=== PATIENT | female | born 1935 | race Caucasian/White ===

== ENCOUNTER → 2018-05-25 09:30 | Outpatient (CLI) | payer MEDICARE, OTHER, SELFPAY ==
--- NOTE | 2018-05-25 09:41 | US_ITS ---
STUDY: ABDOMINAL ULTRASOUND - RIGHT UPPER QUADRANT REASON FOR VISIT: Female, 82 years old. Abdominal pain. Discomfort. TECHNIQUE: Ultrasound evaluation of the right upper quadrant was performed with real-time and static lopez-scale imaging. TECHNICAL QUALITY: Adequate. COMPARISON: None. FINDINGS: Liver: The liver measures 14.2 cm. There is normal echogenicity of the liver. The bile ducts are within normal limits. There is hepatic color flow. The direction of portal flow is hepatopetal. There is no demonstrated mass lesion. Gallbladder: Normal distended gallbladder. The gallbladder wall measures 2. mm. There is a negative sonographic Gonsalez's sign. There is no pericholecystic fluid. There are no gallstones. Common Bile Duct (C.B.D.): The common bile duct measures 5.5 mm. Pancreas: Normal size of the head, body and tail of the pancreas. There is normal echogenicity of the pancreas. There is no demonstrated pancreatic mass or cyst. Right Kidney: Normal size of the right kidney. The right kidney measures 9.2 cm. Normal renal cortex. The right cortex measures 1.2 cm. There is no demonstrated renal mass or cyst. There is an extra-renal pelvis of the right kidney. There is no distention of the renal calyces. US/Gallbladder IMPRESSION: Normal right upper quadrant ultrasound examination. Electronically Signed: Kane Espino DO at 18:28 EDT Tel [phone], Service support ,
[2018-05-25 09:47] LABS: Hematocrit 39.9 % (37-47); Hemoglobin 13.6 g/dl (12.0-15.0); Mean Corp Hgb Conc 34.1 g/gl (32-36); Mean Corpuscular Hgb 32.2 pg (27.0-32.0); Mean Corpuscular Volume 94.3 fL (81-99); Mean Platelet Vol. 8.6 fl (6.2-12.0); Platelet Count 221 K/mm3 (150-450); RBC Distribution Width CV 13.1 % (11.6-14.6); Red Blood Count 4.23 M/mm3 (4.2-5.4); White Blood Count 6.4 K/mm3 (4.4-11.0)
[2018-05-25 09:48] LABS: Scan Indicated on CBC? Y/N NO
[2018-05-25 10:24] LABS: ALB/GLOB Ratio 1.2 RATIO (0.9-2.4); AST(SGOT) 16 U/L (15-37); Alanine Aminotransfer ALT/SGPT 19 U/L (13-56); Albumin, Serum 3.7 g/dL (3.2-5.0); Alkaline Phosphatase 44 U/L (45-117); Anion Gap 6 (5-15); BUN 11 mg/dL (7-18); BUN/Creat Ratio 15.9 RATIO (10-20); Calcium,Total 8.1 mg/dL (8.5-10.1); Chloride 108 mmol/L (98-107); Creatinine, Serum 0.69 mg/dL (0.55-1.02); EST Glomerular Filtration Rate 86 mL/min (>60); Est Glom Filt Rate - Afr Amer 105 mL/min (>60); Globulin 3.1 g/dL (2.2-4.2); Glucose 112 mg/dL (74-106); Potassium 3.8 mmol/L (3.5-5.1); Protein, Total 6.8 g/dL (6.4-8.2); Sodium Level 141 mmol/L (136-145)
[2018-05-26 13:44] LABS: Carcinoembryonic Antigen 5.1 ng/mL (0.0-4.7)
== END ==
PROVIDERS: Referring Provider Surgery; Visit Provider Surgery
DX: R10.11 Right upper quadrant pain (principal); Z85.038 Personal history of other malignant neoplasm of large intestine
CPT/HCPCS: 36415; 76705; 80053; 82378; 85027

== ENCOUNTER 2018-06-17 09:43 | Day surgery (SDC) | payer MEDICARE, OTHER, SELFPAY ==
[2018-06-17] VITALS (10 sets, daily range): BP systolic 86–164; BP diastolic 45–94; PULSE 65–81; RESP 16; TEMP 36–36.6; O2SAT 93–100; BMI 22.8
--- NOTE | 2018-06-17 | EGD_PTH ---
PATIENT: ROSCOE COHEN LOC: EN U#:[id number] AGE/SX: 82/F ROOM: RE06/17/[address]: Dr. Yadiel Engel MD : 1935 BED: DIS: 06/17/2018 SPEC #: [id number] RECD: 06/17/18 14:32 STATUS: ANTONIETTA ORIN #: [id number] CASSANDRA: 06/17/18 00:[address]: Yadiel Engel DEPT: SURGICAL PATHOLOGY RECD BY: Juan Edmond ENTERED: 06/17/18 14:33 SP TYPE: EGD BIOPSY OT DR: Dr. Zuly Merritt MD Tissues: A - Duodenum, NOS B - Gastric mucous membrane C - Esophageal mucous membrane Procedures: Surgery Specimen Level IV HEADER OPERATION: Colonoscopy, EGD (MOD) PRE-OP DIAGNOSIS: Epigastric pain, history of colon cancer TISSUE SUBMITTED: A - Biopsy duodenum, B - Biopsy gastric antrum, H. pylori and path, C - Biopsy distal esophagus MICROSCOPIC DIAGNOSIS A. Duodenum, biopsy: Fragments of duodenal mucosa with mild acute and chronic inflammation and Parminder gland hyperplasia. B. Gastric antrum, biopsy: Mild gastritis. C. Distal esophagus, biopsy: Fragments of squamous mucosa with changes consistent with gastroesophageal reflux disease. SJ:rg 06/20/18 COMMENT B. The results of immunohistochemistry for Helicobacter pylori will be reported separately ([id number]). Correlation with clinical, endoscopic findings and appropriate follow up are necessary. MICROSCOPIC DESCRIPTION Slides are reviewed. B. The specimen shows fragments of gastric mucosa with chronic inflammatory cell infiltrates in the lamina propria consisting of lymphocytes and plasma cells, consistent with mild chronic gastritis. GROSS DESCRIPTION A - Received in fixative is one container labeled with the patient's name and designated biopsy duodenum. The specimen consists of two irregular fragments of light carranza soft tissue that in aggregate measure 0.8 x 0.3 x 0.1 cm. The specimen is totally submitted in one cassette. B - Received in fixative is one container labeled with the patient's name and designated biopsy gastric antrum. The specimen consists of one irregular fragment of light carranza soft tissue that measures 0.4 x 0.2 x 0.1 cm. The specimen is totally submitted in one cassette. C - Received in fixative is one container labeled with the patient's name and designated biopsy distal esophagus. The specimen consists of multiple irregular fragments of light carranza soft tissue that in aggregate measure 1 x 0.5 x 0.1 cm. The specimen is totally submitted in one cassette. / SJ:rg 06/17/18 TC:2 CPT: 48949 x3
--- NOTE | 2018-06-17 10:55 | IMM_PTH ---
PATIENT: ROSCOE COHEN LOC: EN U#:[id number] AGE/SX: 82/F ROOM: RE06/17/[address]: Dr. Yadiel Engel MD : 1935 BED: DIS: 06/17/2018 SPEC #: [id number] RECD: 06/17/18 14:45 STATUS: ANTONIETTA REQ #: [id number] CASSANDRA: 06/17/18 10:[address]: Yadiel Engel DEPT: IMMUNOHISTOCHEMISTRY RECD BY: Lupe Zavala ENTERED: 06/17/18 14:45 SP TYPE: IMMUNO OTHR DR: Dr. Zuly Merritt MD Tissues: B - Stomach, NOS Procedures: H Pylori (initial) PHYSICIAN & INSTITUTION [place] [id number] SPECIMEN INFORMATION: Tissue Source: Gastric antrum Clinical Info: Epigastric pain, history of colon cancer Specimen Number: [id number] CPT code: 32104 METHODOLOGY: Deparaffinized sections of prefer/formalin-fixed tissue or PAP/DQ stained slides are incubated with monoclonal/polyclonal antibodies/oligonucleotide probes. Localization is made via biotin free immunoperoxidase method. Appropriate controls are performed and reacted as expected. Results on target cell population are indicated in the following table: RESULTS: ANTIBODY / CLONE RESULT H Pylori (polyclonal) negative These tests were developed and their performance characteristics determined by [facility]. They may not have been cleared or approved by the [place]. Food and Drug Administration. The FDA has determined that such clearance or approval is not necessary. INTERPRETATION: Gastric antrum, biopsy: Negative for Helicobacter pylori organisms. SJ:rustam 06/20/18
--- NOTE | 2018-06-17 11:39 | OP.ENDO_ITS ---
Patient Name: May Bobby Procedure Date: 06/17/2018 11:02 AM Date of : 1935 Age: 82 Procedure: Upper GI endoscopy Indications: Epigastric abdominal pain Providers: Yadiel Engel MD Referring MD: Yadiel Engel MD Medicines: Midazolam 4 mg IV, Meperidine 100 mg IV Complications: No immediate complications. Procedure: Pre-Anesthesia Assessment: - Prior to the procedure, a History and Physical was performed, and patient medications and allergies were reviewed. The patient's tolerance of previous anesthesia was also reviewed. The risks and benefits of the procedure and the sedation options and risks were discussed with the patient. All questions were answered, and informed consent was obtained. Prior Anticoagulants: The patient has taken no previous anticoagulant or antiplatelet agents. ASA Grade Assessment: II - A patient with mild systemic disease. After reviewing the risks and benefits, the patient was deemed in satisfactory condition to undergo the procedure. After obtaining informed consent, the endoscope was passed under direct vision. Throughout the procedure, the patient's blood pressure, pulse, and oxygen saturations were monitored continuously. The gastroscope was introduced through the mouth, and advanced to the second part of duodenum. The upper GI endoscopy was accomplished without difficulty. The patient tolerated the procedure well. Moderate Sedation: Moderate (conscious) sedation was personally administered by the endoscopist. The following parameters were monitored: oxygen saturation, heart rate, blood pressure, and response to care. Total physician intraservice time was 22 minutes. Scope In: 11:12:27 AM Scope Out: 11:18:13 AM Total Procedure Duration Time 0 hours 5 minutes 46 seconds Findings: LA Grade A (one or more mucosal breaks less than 5 mm, not extending between tops of 2 mucosal folds) esophagitis was found 40 cm from the incisors. Biopsies were taken with a cold forceps for histology. A medium-sized hiatal hernia was present. Diffuse mildly erythematous mucosa without bleeding was found in the gastric antrum. Biopsies were taken with a cold forceps for histology. Diffuse mildly erythematous mucosa without active bleeding and with no stigmata of bleeding was found in the duodenal bulb. Biopsies were taken with a cold forceps for histology. Impression: - LA Grade A reflux esophagitis. Biopsied. Possible small amount of Bauman's - Medium-sized hiatal hernia. - Erythematous mucosa in the antrum. Biopsied. - Erythematous duodenopathy. Biopsied. Findings show mild disease but would not likely cause severe epigatric pain Unless pt is improved on current medications Recommendation: - Discharge patient to home. - Resume previous diet. - Continue present medications. - Telephone my office for pathology results in 1 week. Procedure Code(s): --- Professional --- 68522, Esophagogastroduodenoscopy, flexible, transoral; with biopsy, single or multiple 95437, 59, Moderate sedation services provided by the same physician or other qualified health critical care clinical nurse specialist performing the diagnostic or therapeutic service that the sedation supports, requiring the presence of an independent trained observer to assist in the monitoring of the patient's level of consciousness and physiological status; initial 15 minutes of intraservice time, patient age 5 years or older Diagnosis Code(s): --- Professional --- K21.0, Gastro-esophageal reflux disease with esophagitis K44.9, Diaphragmatic hernia without obstruction or gangrene K31.89, Other diseases of stomach and duodenum R10.13, Epigastric pain CPT copyright 2017 [employer]. All rights reserved. The codes documented in this report are preliminary and upon industrial machine operator review may be revised to meet current compliance requirements. Yadiel Engel MD 06/17/2018 11:39:23 AM This report has been signed electronically. Number of Addenda: 0 Note Initiated On: 06/17/2018 11:02 AM
--- NOTE | 2018-06-17 11:46 | OP.ENDO_ITS ---
Patient Name: May Bobby Procedure Date: 06/17/2018 11:19 AM Date of : 1935 Age: 82 Procedure: Colonoscopy Indications: High risk colon cancer surveillance: Personal history of colon cancer Providers: Yadiel Engel MD Referring MD: Yadiel Engel MD Medicines: See the other procedure note for documentation of the administered medications Patient Profile: Last Colonoscopy: 5 years ago. Complications: No immediate complications. Procedure: Pre-Anesthesia Assessment: - Prior to the procedure, a History and Physical was performed, and patient medications and allergies were reviewed. The patient's tolerance of previous anesthesia was also reviewed. The risks and benefits of the procedure and the sedation options and risks were discussed with the patient. All questions were answered, and informed consent was obtained. Prior Anticoagulants: The patient has taken no previous anticoagulant or antiplatelet agents. ASA Grade Assessment: II - A patient with mild systemic disease. After reviewing the risks and benefits, the patient was deemed in satisfactory condition to undergo the procedure. After I obtained informed consent, the scope was passed under direct vision. Throughout the procedure, the patient's blood pressure, pulse, and oxygen saturations were monitored continuously. The Colonoscope was introduced through the anus and advanced to the cecum, identified by appendiceal orifice and ileocecal valve. The colonoscopy was performed without difficulty. The patient tolerated the procedure well. The quality of the bowel preparation was good. The ileocecal valve was photographed. Moderate Sedation: Moderate (conscious) sedation was personally administered by the endoscopist. The following parameters were monitored: oxygen saturation, heart rate, blood pressure, and response to care. Total physician intraservice time was 15 minutes. Scope In: 11:20:59 AM Scope Withdrawal Time 0 hours 6 minutes 34 seconds Scope Out: 11:32:40 AM Total Procedure Duration Time 0 hours 11 minutes 41 seconds Findings: The perianal and digital rectal examinations were normal. There was evidence of a prior end-to-end colo-rectal anastomosis Patent and healthy. Multiple diverticula were found in the entire colon. The exam was otherwise without abnormality. Impression: - Patent end-to-end colo-rectal anastomosis, characterized by healthy appearing mucosa. - Diverticulosis in the entire examined colon. - The examination was otherwise normal. - Findings do not correlate with abdominal pain. Recommendation: - Discharge patient to home. - Resume previous diet. - Continue present medications. - Repeat colonoscopy in 5 years for surveillance. - Telephone my office for pathology results in 1 week. Procedure Code(s): --- Professional --- 53677, Colonoscopy, flexible; diagnostic, including collection of specimen(s) by brushing or washing, when performed (separate procedure) 22506, 59, Moderate sedation services provided by the same physician or other qualified health health care liaison performing the diagnostic or therapeutic service that the sedation supports, requiring the presence of an independent trained observer to assist in the monitoring of the patient's level of consciousness and physiological status; initial 15 minutes of intraservice time, patient age 5 years or older CPT copyright 2017 [employer]. All rights reserved. The codes documented in this report are preliminary and upon trial justice review may be revised to meet current compliance requirements. Yadiel Engel MD 06/17/2018 11:46:16 AM This report has been signed electronically. Number of Addenda: 0 Note Initiated On: 06/17/2018 11:19 AM
== END 2018-06-17 12:45 | disposition home or self-care (01) ==
LOC: EN 09:44 → AC 09:45
PROVIDERS: Referring Provider Surgery; Visit Provider Surgery
PROC: 0DJD8ZZ Inspection of Lower Intestinal Tract, Via Natural or Artificial Opening Endoscopic (ICD-10-PCS; CPT 45378; principal; 2018-06-17 10:50)
DX: K29.70 Gastritis, unspecified, without bleeding (principal); K44.9 Diaphragmatic hernia without obstruction or gangrene; K21.0 Gastro-esophageal reflux disease with esophagitis; K31.89 Other diseases of stomach and duodenum; K63.89 Other specified diseases of intestine; K57.30 Diverticulosis of large intestine without perforation or abscess without bleeding; Z85.038 Personal history of other malignant neoplasm of large intestine; E03.9 Hypothyroidism, unspecified; Z79.899 Other long term (current) drug therapy
CPT/HCPCS: 43239; 45378; 88305; 88342; 99152; 99153; J7120

== ENCOUNTER → 2020-06-17 15:39 | Outpatient (CLI) | payer MEDICARE, OTHER, SELFPAY ==
[2020-06-17 15:01] VITALS: BMI 23.5
[2020-06-17 16:09] LABS: Bacteria 0 SEEN /hpf (None Seen); Mucous, Urine 0 SEEN /hpf (<or=2+)
[2020-06-17 16:12] LABS: Absolute Lymphocyte Count 2.36 X10^3/uL (0.83-4.51); Absolute Neutrophil Count 3.2 X10^3/uL (2.0-7.7); Basophil# 0.04 X10^3/uL; Basophil% 0.6 % (0-1); Eosinophil# 0.24 X10^3/uL; Eosinophils% 3.7 % (0-5); Hemoglobin 14.5 g/dL (12.0-15.0); Lymphocyte # 2.36 X10^3/ul (4.0); Lymphocyte % 36.4 % (19-41); Mean Corp Hgb Conc 33.7 g/dL (32-36); Mean Corpuscular Hgb 31.9 pg (27.0-32.0); Mean Corpuscular Volume 94.7 fL (81-99); Monocyte# 0.66 X10^3/uL; Monocyte% 10.2 % (0-10); NRBC Flagged by Analyzer 0 % (0-5); Neutrophil # 3.17 X10^3/uL (2.7-7.7); Neutrophil % 48.8 % (47-70); Platelet Count 273 K/mm3 (150-450); RBC Distribution Width CV 12.3 % (11.6-14.6); Red Blood Count 4.54 M/mm3 (4.2-5.4); White Blood Count 6.5 K/mm3 (4.4-11.0)
[2020-06-17 16:14] LABS: Color, Urine Yellow (Yellow); Glucose, Dipstick Normal (Normal); Ketone-Dipstick 50 mg/dl (Negative); Leukocyte Esterase-Dipstick 100 /ul (Negative); Nitrite-Dipstick Negative (Negative); Occult Blood-Urine 10 /ul (Negative); Protein-Dipstick 15 mg/dl (Negative); Urine Bilirubin Dipstick Negative (Negative); Urine Clarity Sl. Cloudy (Clear); Urine Urobilinogen Normal (Normal); Urine pH 6.5 (5.0 - 8.0)
[2020-06-17 16:29] LABS: ALB/GLOB Ratio 1.1 RATIO (0.9-2.4); AST(SGOT) 14 U/L (15-37); Alanine Aminotransfer ALT/SGPT 20 U/L (13-56); Albumin, Serum 3.9 g/dL (3.2-5.0); Alkaline Phosphatase 93 U/L (45-117); Amylase 51 U/L (25-115); Anion Gap 7 (5-15); BUN 11 mg/dL (7-18); BUN/Creat Ratio 15.2 RATIO (10-20); Calcium,Total 9.7 mg/dL (8.5-10.1); Chloride 101 mmol/L (98-107); Creatinine, Serum 0.72 mg/dL (0.55-1.02); EST Glomerular Filtration Rate 82 mL/min (>60); Est Glom Filt Rate - Afr Amer 99 mL/min (>60); Globulin 3.7 g/dL (2.2-4.2); Glucose 123 mg/dL (74-106); Lipase 91 U/L (73-393); Potassium 3.4 mmol/L (3.5-5.1); Protein, Total 7.6 g/dL (6.4-8.2); Sodium Level 136 mmol/L (136-145)
[2020-06-17 16:33] LABS: Red Blood Cells-Urine 0-5 SEEN /hpf (0-5); Squamous Epithelial Cells - UA 0-5 SEEN /hpf (5-10); White Blood Cells 5-10 SEEN /hpf (0-5)
[2020-06-17 18:56] LABS: Erythrocyte Sedimentation Rate 7 mm/hr (0-30)
== END ==
PROVIDERS: Physician Assistant; Referring Provider Surgery; Visit Provider Surgery
DX: R10.13 Epigastric pain (principal); R30.0 Dysuria
CPT/HCPCS: 36415; 80053; 81001; 82150; 83690; 85025; 85652

== ENCOUNTER → 2020-06-18 08:59 | Outpatient (CLI) | payer MEDICARE, OTHER, SELFPAY ==
[2020-06-17 15:01] VITALS: BMI 23.5
--- NOTE | 2020-06-18 09:01 | CT_ITS ---
STUDY: CT ABDOMEN AND PELVIS WITH CONTRAST REASON FOR EXAM: Female, 84 years old. Back pain, constipation, hx colon cancer with partial colectomy, radiation and chemotherapy, appendectomy. RADIATION DOSAGE (If Supplied By Facility): CTDIvol = ( 12.75 ) mGy, DLP = ( 558.18 ) mGycm TECHNIQUE: Transaxial images were obtained from the dome of the diaphragm to the symphysis pubis with oral contrast. Oral and amp; IV Readi-CAT and amp; 100mL Isovue-300 was administered. Sagittal and coronal images were reconstructed. Individualized dose optimization techniques were used for this CT. COMPARISON: None. FINDINGS: Minimal increased linear markings at the left lung base suggestive of either linear atelectasis and/or scarring. There is a 3.2 cm x 1.1 cm linear soft tissue density in the inferior aspect of the left breast. Correlation with ultrasound is recommended. The visualized portions of the heart are within normal limits. Normal liver. Normal gallbladder and extrahepatic biliary system. Normal spleen. Normal pancreas. Normal bilateral adrenal glands. Normal right kidney. Normal left kidney. Normal visualized stomach. Normal small intestine. Large amount of fecal material is seen in the colon. The patient is status post appendectomy. Normal abdominal aorta. Normal inferior vena cava. Normal retroperitoneum. Normal urinary bladder. Normal abdominal wall. There are diffuse degenerative changes of the visualized lumbar spine. Levoscoliosis. CT/Abdomen/Pelvis WITH Contrast IMPRESSION: Large amount of fecal material is seen in the colon Right renal cyst. Electronically Signed: Anthony Arnold, at 10:23 EDT , Service support ,
--- NOTE | 2020-06-18 12:45 | RAD_ITS ---
STUDY: LIMITED GASTROGRAFIN ENEMA. REASON FOR EXAM: Female, [address] PELVIS, BE WITH GASTROGRAFFIN FLUOROSCOPY TIME (if supplied): ( 60 seconds ) minutes/seconds. 6 images were obtained. TECHNIQUE: GASTROGRAFIN was introduced retrograde through the rectum. COMPARISON: None. FINDINGS: On the protection specialist image, there is a large amount of fecal material and oral contrast from prior CT scan throughout the colon. There was free flow of the GASTROGRAFIN retrograde through the rectum. Large amount of fecal material is seen. Scattered sigmoid diverticula. No evidence of obstruction. RAD/Barium Enema No Air Cont IMPRESSION: Sigmoid diverticula. No evidence of obstruction. Large amount of fecal material is seen in the colon. Electronically Signed: Anthony Arnold, at 15:07 EDT , Service support ,
== END ==
PROVIDERS: Referring Provider Physician Assistant; Visit Provider Physician Assistant
DX: R10.9 Unspecified abdominal pain (principal); R93.5 Abnormal findings on diagnostic imaging of other abdominal regions, including retroperitoneum; Z85.048 Personal history of other malignant neoplasm of rectum, rectosigmoid junction, and anus
CPT/HCPCS: 74177; 74270; Q9967; A4216

== ENCOUNTER → 2020-06-19 09:11 | Outpatient (CLI) | payer MEDICARE, OTHER, SELFPAY ==
--- NOTE | 2020-06-19 09:11 | BI_ITS ---
MAMMOGRAPHY - BILATERAL DIAGNOSTIC REASON FOR EXAM: Female, 84 years old. Possible soft tissue mass in the left breast as seen on prior CT scan. PERTINENT HISTORY: Non-contributory. Remote left excisional breast biopsy. TECHNIQUE: Digital bilateral breast harini (3D mammographic acquisition) in the CC and MLO projections. 2-D mediolateral oblique (MLO) and craniocaudad (CC) views of both breasts were obtained. CAD: Full Field Digital Mammography with Computer Added Detection was performed. COMPARISON: Comparison is made with prior abdomen examination dated 09/26/2014. FINDINGS: Breast Composition: There are scattered areas of fibroglandular density. There are no dominant masses or suspicious calcifications. Mild asymmetry of breast tissue were more breast tissue is seen in the left breast as compared to the right side. No other significant abnormalities are identified. There has been no significant change since the prior study. BI/DIAG MAMM W/CAD, BILAT IMPRESSION: Stable bilateral diagnostic mammogram. Correlation with ultrasound of the lateral inferior aspect of the left breast is recommended for evaluation. ASSESSMENT CATEGORY: BIRADS Category 0: Incomplete. Need additional imaging evaluation. A letter regarding these results will be sent to the patient by the facility within 30 days. Approximately 10% of breast cancers are not detected by mammography. A normal mammogram should not delay biopsy of a clinically suspicious abnormality. Electronically Signed: Anthony Arnold, at 10:42 EDT , Service support ,
--- NOTE | 2020-06-19 09:11 | US_ITS ---
STUDY: ULTRASOUND BREAST - LEFT REASON FOR EXAM: Female, 84 years old. Abnormal mammogram. TECHNIQUE: Axial and longitudinal images of the LEFT breast were performed with a high resolution ultrasound transducer. # OF IMAGES: 25 COMPARISON: Comparison is made with prior mammogram done earlier today. FINDINGS: LEFT Breast: The inferior half of the left breast was examined by ultrasound. No sonographic abnormality is seen. The finding on the CT scan most likely represents fibroglandular tissue. US/Breast Limited Unilateral IMPRESSION: No sonographic abnormality is seen ASSESSMENT CATEGORY: BIRADS Category 1: Negative. A letter regarding these results will be sent to the patient by the facility within 30 days. Electronically Signed: Anthony Arnold, at 10:46 EDT , Service support ,
== END ==
PROVIDERS: Referring Provider Surgery; Visit Provider Surgery
DX: N63.24 Unspecified lump in the left breast, lower inner quadrant (principal); R93.89 Abnormal findings on diagnostic imaging of other specified body structures
CPT/HCPCS: 76642; 77062; 77066; G0279

== ENCOUNTER 2021-02-11 08:11 | Day surgery (SDC) | payer MEDICARE, OTHER, SELFPAY ==
--- NOTE | 2021-02-11 08:18 | PCM.HP.BLA ---
History and Physical Date of Ad[facility]: [facility] [address] [place] [address] [phone] OFFICE VISITDate of Service: 07/01/20 MR#:[id number]: ROSCOE COHEN [facility] #:[id number]:1935 Provider:Dr. Yadiel Engel MDAge/Sex: 84/F [facility] Int[facility] Intake Visit Reasons: discuss mammo/US and schedule colonoscopy Chief Complaint: Review results of mammogram Food Safety Director Required: No Is patient in pain?: No Allergies bee venom protein (honey bee) Allergy (Verified 07/01/20 14:54) Swelling bacitracin [From Neosporin ([id number])] Adverse Reaction (Verified 07/01/20 14:54) Rash neomycin [From Neosporin (gxi-kuj-[id number])] Adverse Reaction (Verified 07/01/20 14:54) Rash Penicillins Adverse Reaction (Verified 07/01/20 14:54) Hives polymyxin B [From Neosporin (tvv-ght-ordbh)] Adverse Reaction (Verified 07/01/20 14:54) Rash Medications Brimonidine Tartrate 0.2% [Brimonidine 0.2% 5Ml Bottle] 1 drp EACH EYE DAILY 06/17/18 [History Confirmed 07/01/20] Levothyroxine Sodium 25 mg PO DAILY 06/17/18 [History Confirmed 07/01/20] [facility] Medical History Abdominal pain (Acute) Colon cancer (Acute) History of diverticulitis (Acute) Hypothyroid (Acute) Surgical History S/P colectomy (Acute ~1995) S/P colonoscopy (Acute ~2017) Family History Aunt Breast cancer Colon cancer Brother Diabetes Social History (Updated 07/01/20 @ 15:[address] Yadiel Engel MD) Smoking Status: Never smoker alcohol intake: current alcohol intake frequency: 0-2 drinks per day HPI: Patient is an 85 y/o F I am following for an update history and physical for an elective scopes. Patient denies any recent hospitalizations or illnesses since her last visit with Dr. Engel in June. She denies any medication changes or blood thinners. She denies current chest pain or shortness of breath. She notes being on Prilosec for reflux disease and having intermittent epigastric discomfort if she does not take the Prilosec. She has had a personal history of colon cancer. Patient's previous history per Dr. nEgel: ROSCOE COHEN, is a 84 F who presents to the office today for ongoing surgical follow-up. I recently urgently saw this patient because of abdominal pain and severe constipation. She has had a previous history of colon cancer and sigmoid colon resection. There was concern about possible recurrence. A CT scan was obtained showing possible left breast lesion as well is severe fecal loading. She had a Gastrografin enema demonstrating that her sigmoid anastomosis appeared to be patent. She has extensive diverticulosis. And extensive fecal loading. The Gastrografin enema in combination with MiraLAX help resolve her constipation. She currently is feeling much better in that regard. The patient then had bilateral mammography because of the abnormal CT mention of the left breast. She also had left breast ultrasonography. She is noted to have dense breast bilaterally. There is no focal mass noted on the left. [facility] Imaging Services [address] [place] [address] DIAG MAMM W/CAD, BILAT MR#: [id number] Name: ROSCOE COHEN [facility] #:[id number] : 1935 84 From: Anthony Arnold MD PCP:Dr. Zuly Merritt MD Status:[facility] Study:DIAG MAMM W/CAD, BILAT Date of Exam:06/19/20 Exam#[id number] Ordering Dr: Yadiel Engel MD MAMMOGRAPHY - BILATERAL DIAGNOSTIC REASON FOR EXAM: Female, 84 years old. Possible soft tissue mass in the left breast as seen on prior CT scan. PERTINENT HISTORY: Non-contributory. Remote left excisional breast biopsy. TECHNIQUE: Digital bilateral breast harini (3D mammographic acquisition) in the CC and MLO projections. 2-D mediolateral oblique (MLO) and craniocaudad (CC) views of both breasts were obtained. CAD: Full Field Digital Mammography with Computer Added Detection was performed. COMPARISON: Comparison is made with prior abdomen examination dated 09/26/2014. FINDINGS: Breast Composition: There are scattered areas of fibroglandular density. There are no dominant masses or suspicious calcifications. Mild asymmetry of breast tissue were more breast tissue is seen in the left breast as compared to the right side. No other significant abnormalities are identified. There has been no significant change since the prior study. BI/DIAG MAMM W/CAD, BILAT IMPRESSION: Stable bilateral diagnostic mammogram. Correlation with ultrasound of the lateral inferior aspect of the left breast is recommended for evaluation. ASSESSMENT CATEGORY: BIRADS Category 0: Incomplete. Need additional imaging evaluation. A letter regarding these results will be sent to the patient by the facility within 30 days. Approximately 10% of breast cancers are not detected by mammography. A normal mammogram should not delay biopsy of a clinically suspicious abnormality. Electronically Signed: Anthony Arnold, at 10:42 EDT , Service support , [facility] Imaging Services [address] [place] [address] Breast Limited Unilateral MR#: [id number] Name: ROSCOE COHEN [facility] #:[id number] : 1935F 84 From: Anthony Arnold MD PCP:Dr. Zuly Merritt MD Status:[facility] CLI Study:Breast Limited Unilateral Date of Exam:06/19/20 Exam#[id number] Ordering Dr: Yadiel Engel MD STUDY: ULTRASOUND BREAST - LEFT REASON FOR EXAM: Female, 84 years old. Abnormal mammogram. TECHNIQUE: Axial and longitudinal images of the LEFT breast were performed with a high resolution ultrasound transducer. # OF IMAGES: 25 COMPARISON: Comparison is made with prior mammogram done earlier today. FINDINGS: LEFT Breast: The inferior half of the left breast was examined by ultrasound. No sonographic abnormality is seen. The finding on the CT scan most likely represents fibroglandular tissue. US/Breast Limited Unilateral IMPRESSION: No sonographic abnormality is seen ASSESSMENT CATEGORY: BIRADS Category 1: Negative. A letter regarding these results will be sent to the patient by the facility within 30 days. Electronically Signed: Anthony Clayton, at 10:46 EDT , Service support , ROS General General: Yes colon cancer; no weight change, appetite, fatigue, breast cancer or weakness HEENT HEENT: No difficulty swallowing, eye injury, eye surgery, swollen glands or hoarseness Endo Endocrine: Yes thyroid disease; no diabetes mellitus, thyroid cancer, Hair loss, heat intolerance or cold intolerance Skin Skin: No rash or changing moles Breast Breast: No left breast lump, right breast lump, nipple discharge, breast pain, abnormal mammogram, abnormal US or breast enlargement Musc Musculoskeletal: No back problems, arthritis, rheumatoid arthritis, gout or joint pain Cardio Cardiovascular: No murmur, pacemaker, heart disease, atrial fibrillation, high blood pressure, heart attack, heart stent, palpitations, shortness of breat with exertion or chest pain Psych Psychiatric: No depression, anxiety or hearing voices Resp Respiratory: No shortness of breath, No sleep apnea, No cough, No COPD, No asthma, No emphysema, No wheezing Gastro Gastrointestinal: Yes abdominal pain, No nausea or vomiting, No diarrhea, Yes constipation, No blood in stool, No acid reflux, No hemorrhoids, No ulcers, No gallbladder problem, No black,tarry stools Aaron Hematologic: No blood thinners, No blood disorders, No bleeding, No anemia, No blood clots Neuro Neurologic: No weakness Exam: General: Well kept, A&O x3. Skin: No lacerations or open wounds noted HEENT: normocephalic, PERRL Neck: No masses noted Breast: Symmetric, no discharge Heart: RRR. No murmurs Lungs: CTA Abdomen: Soft, nontender. Normal bowel sounds Musculoskeletal: Normal ROM Vascular: No murmurs. Normal pulses Lymphatic: No enlarged/palpable lymph nodes Neurologic: Neurologically intact Assessment & Plan Assessment/Plan (1) Epigastric pain: PLAN: Dr. Engel will plan to perform an upper and lower scope with possible biopsies. Procedure details, risks and benefits have been reviewed. Patient has had the opportunity to ask and have questions answered. Patient verbally understands and agrees with the plan. Patient has been provided bowel prep instructions. (2) Personal history of colon cancer: (3) Abdominal pain: QUALIFIERS: Abdominal location: lower abdomen, unspecified Qualified Code(s): R10.30 - Lower abdominal pain, unspecified Charges/Coding Visit Charges Office Visits / Consults: 52112 OP Consult L1 (No charge. Update H&P)
[2021-02-11 08:39] VITALS: BP 166/85; PULSE 61; RESP 16; TEMP 36.4; O2SAT 100; BMI 23.3
[2021-02-11] MEDS: Lactated Ringers 1,000 ML 100 ML IV (08:56)
--- NOTE | 2021-02-11 09:15 | EGD_PTH ---
PATIENT: ROSCOE COHEN LOC: EN U#:[id number] AGE/SX: 85/F ROOM: RE02/11/[address]: Dr. Yadiel Engel MD : 1935 BED: DIS: 02/11/2021 SPEC #: [id number] RECD: 02/11/21 10:01 STATUS: ANTONIETTA SR #: [id number] CASSANDRA: 02/11/21 09:[address]: Yadiel Engel DEPT: SURGICAL PATHOLOGY RECD BY: Shavonne Joshi ENTERED: 02/11/21 10:51 SP TYPE: EGD BIOPSY OT DR: Dr. Zuly Merritt MD Tissues: A - Duodenum, NOS B - Gastric mucous membrane C - Gastric mucous membrane D - Esophagus, NOS E - Esophagus, NOS F - Sigmoid colon biopsy Procedures: Special Stain Group II Surgery Specimen Level IV Alcian Blue/PAS (control) HEADER OPERATION: Colonoscopy, EGD ? open access (MAC) PRE-OP DIAGNOSIS: History of colon cancer; abdominal pain, epigastric pain TISSUE SUBMITTED: A - Duodenum biopsy, B - Antrum biopsy for H. pylori and path, C - Greater curvature polyp biopsy, D - Distal esophagus biopsy, E - Mid esophagus biopsy, F - Sigmoid biopsy MICROSCOPIC DIAGNOSIS A. Duodenum, biopsy: No pathologic change. B. Gastric antrum, biopsy: Chronic gastritis. See comment. C. Stomach, greater curvature polyp, biopsy: Fragment of gastric mucosa with mild chronic inflammation. D. Distal esophagus, biopsy: Gastroesophageal junction mucosa with mild chronic inflammation. No evidence of goblet cell metaplasia. See comment. E. Mid esophagus, biopsy: Fragments of benign squamous mucosa. No evidence of inflammation. F. Sigmoid colon, biopsy: Recent mucosal hemorrhage. No evidence of colitis. AM:rustam 02/12/2021 COMMENT B. The results of immunohistochemistry for Helicobacter pylori will be reported separately ([id number]). D. Alcian blue/PAS stain with matched control supports the above diagnosis. MICROSCOPIC DESCRIPTION Slides are reviewed. GROSS DESCRIPTION A - Received in fixative is one container labeled with the patient's name and designated duodenum biopsy. The specimen consists of one irregular fragment of light carranza soft tissue that measures 0.4 x 0.3 x 0.1 cm. The specimen is totally submitted in one cassette. B - Received in fixative is one container labeled with the patient's name and designated antrum biopsy. The specimen consists of one irregular fragment of light carranza soft tissue that measures 0.4 x 0.4 x 0.1 cm. The specimen is totally submitted in one cassette. C - Received in fixative is one container labeled with the patient's name and designated greater curvature polyp biopsy. The specimen consists of one irregular fragment of light carrnaza soft tissue that measures 0.7 x 0.2 x 0.1 cm. The specimen is totally submitted in one cassette. D - Received in fixative is one container labeled with the patient's name and designated distal esophagus biopsy. The specimen consists of two irregular fragments of light carranza soft tissue that in aggregate measure 1 x 0.4 x 0.1 cm. The specimen is totally submitted in one cassette. E - Received in fixative is one container labeled with the patient's name and designated mid esophagus biopsy. The specimen consists of one irregular fragment of light carranza soft tissue that measures 0.4 x 0.3 x 0.1 cm. The specimen is totally submitted in one cassette. F - Received in fixative is one container labeled with the patient's name and designated sigmoid biopsy. The specimen consists of one irregular fragment of light carranza soft tissue that measures 0.3 x 0.3 x 0.1 cm. The specimen is totally submitted in one cassette. / SJ:rg 02/11/21 TC:3 [facility]: [id number] [phone], [phone]
--- NOTE | 2021-02-11 09:15 | IMM_PTH ---
PATIENT: ROSCOE COHEN LOC: EN U#:[id number] AGE/SX: 85/F ROOM: RE02/11/[address]: Dr. Yadiel Engel MD : 1935 BED: DIS: 02/11/2021 SPEC #: [id number] RECD: 02/11/21 12:18 STATUS: ANTONIETTA REShalom #: [id number] CASSANDRA: 02/11/21 09:[address]: Yadiel Engel DEPT: IMMUNOHISTOCHEMISTRY RECD BY: Lupe Zavala ENTERED: 02/11/21 12:18 SP TYPE: IMMUNO OTHR DR: Dr. Zuly Merritt MD Tissues: B - Stomach, NOS Procedures: H Pylori (initial) PHYSICIAN & INSTITUTION [address] [address] SPECIMEN INFORMATION: Tissue Source: B ? Antrum biopsy Clinical Info: History of colon cancer; abdominal pain, epigastric pain Specimen Number: [id number] CPT code: 06551 METHODOLOGY: Deparaffinized sections of prefer/formalin-fixed tissue or PAP/DQ stained slides are incubated with monoclonal/polyclonal antibodies/oligonucleotide probes. Localization is made via biotin free immunoperoxidase method. Appropriate controls are performed and reacted as expected. Results on target cell population are indicated in the following table: RESULTS: ANTIBODY / CLONE RESULT Block B H Pylori (polyclonal) negative These tests were developed and their performance characteristics determined by [facility]. They may not have been cleared or approved by the U.S. Food and Drug Administration. The FDA has determined that such clearance or approval is not necessary. INTERPRETATION: B. Antrum biopsy: Negative for Helicobacter pylori organisms. AM:rustam 02/12/2021
[2021-02-11 09:44] VITALS: BP 130/86; BP 166/85; PULSE 61; RESP 16; TEMP 36.4; O2SAT 94
--- NOTE | 2021-02-11 09:45 | OP.EGD_ITS ---
Patient Name: May Bobby Procedure Date: 02/11/2021 8:54 AM Date of : 1935 Age: 85 Procedure: Upper GI endoscopy Indications: Epigastric abdominal pain Providers: Yadiel Engel MD Medicines: See the Anesthesia note for documentation of the administered medications Complications: No immediate complications. Procedure: Pre-Anesthesia Assessment: - Prior to the procedure, a History and Physical was performed, and patient medications and allergies were reviewed. The patient's tolerance of previous anesthesia was also reviewed. The risks and benefits of the procedure and the sedation options and risks were discussed with the patient. All questions were answered, and informed consent was obtained. Prior Anticoagulants: The patient has taken no previous anticoagulant or antiplatelet agents. ASA Grade Assessment: II - A patient with mild systemic disease. After reviewing the risks and benefits, the patient was deemed in satisfactory condition to undergo the procedure. After obtaining informed consent, the endoscope was passed under direct vision. Throughout the procedure, the patient's blood pressure, pulse, and oxygen saturations were monitored continuously. The gastroscope was introduced through the mouth, and advanced to the second part of duodenum. The upper GI endoscopy was accomplished without difficulty. The patient tolerated the procedure well. Scope In: 9:15:56 AM Scope Out: 9:22:11 AM Total Procedure Duration Time 0 hours 6 minutes 15 seconds Findings: A small hiatal hernia was present. The mid esophagus was normal. Biopsies were taken with a cold forceps for histology. Esophagitis with no bleeding was found 38 cm from the incisors. Biopsies were taken with a cold forceps for histology. Multiple sessile polyps with no bleeding and no stigmata of recent bleeding were found in the gastric body. The polyp was removed with a cold biopsy forceps. Resection and retrieval were complete. Diffuse mildly erythematous mucosa without bleeding was found in the gastric antrum. Biopsies were taken with a cold forceps for histology. The examined duodenum was normal. Biopsies were taken with a cold forceps for histology. Impression: - Small hiatal hernia. - Normal mid esophagus. Biopsied. - Reflux esophagitis. Biopsied. - Multiple gastric polyps. Resected and retrieved. - Erythematous mucosa in the antrum. Biopsied. - Normal examined duodenum. Biopsied. Recommendation: - Discharge patient to home. - Resume previous diet. - Continue present medications. - Telephone my office for pathology results in 1 week. Procedure Code(s): --- Professional --- 92340, Esophagogastroduodenoscopy, flexible, transoral; with biopsy, single or multiple Diagnosis Code(s): --- Professional --- K44.9, Diaphragmatic hernia without obstruction or gangrene K21.0, Gastro-esophageal reflux disease with esophagitis K31.7, Polyp of stomach and duodenum K31.89, Other diseases of stomach and duodenum R10.13, Epigastric pain CPT copyright 2017 [employer]. All rights reserved. The codes documented in this report are preliminary and upon auditing coder review may be revised to meet current compliance requirements. Yadiel Engel MD 02/11/2021 9:45:14 AM This report has been signed electronically. Number of Addenda: 0 Note Initiated On: 02/11/2021 8:54 AM
--- NOTE | 2021-02-11 09:45 | OP.CCLET_ITS ---
02/11/2021 Zuly Merritt Md Re : Upper GI endoscopy procedure for May Bobby Dear Dr. Merritt This procedure was performed on Thursday, February 11, 2021. My impressions and recommendations are as follows: Impressions : - Small hiatal hernia. - Normal mid esophagus. Biopsied. - Reflux esophagitis. Biopsied. - Multiple gastric polyps. Resected and retrieved. - Erythematous mucosa in the antrum. Biopsied. - Normal examined duodenum. Biopsied. Recommendations : - Discharge patient to home. - Resume previous diet. - Continue present medications. - Telephone my office for pathology results in 1 week. My findings are described in the full procedure note, which is enclosed. If I can be of further assistance, please feel free to contact me at Doctor phone number(s): Work: . Sincerely, Yadiel Engel MD 02/11/2021 9:45:14 AM This report has been signed electronically.
[2021-02-11 09:50] VITALS: BP 124/77; BP 166/85; PULSE 62; RESP 16; O2SAT 95
--- NOTE | 2021-02-11 09:50 | OP.CCLET_ITS ---
02/11/2021 Zuly Merritt Md Re : Colonoscopy procedure for May Bobby Dear Dr. Merritt This procedure was performed on Thursday, February 11, 2021. My impressions and recommendations are as follows: Impressions : - Hemorrhoids found on perianal exam. - Patent end-to-end colo-rectal anastomosis, characterized by healthy appearing mucosa. - Diverticulosis in the sigmoid colon. - Erythematous mucosa in the sigmoid colon. Biopsied. - The examination was otherwise normal. Recommendations : - Discharge patient to home. - Resume previous diet. - Continue present medications. - Repeat colonoscopy is not recommended due to current age (66 years or older) for screening purposes. - Telephone my office for pathology results in 1 week. Mild irritation of the sigmoid colon upon scope passage. Possible mild nonspecific colitis or possible episode of mild diverticulitis. Lumen is widely patent. Biopsy of this area pending. My findings are described in the full procedure note, which is enclosed. If I can be of further assistance, please feel free to contact me at Doctor phone number(s): Work: . Sincerely, Yadiel Engel MD 02/11/2021 9:50:26 AM This report has been signed electronically.
--- NOTE | 2021-02-11 09:50 | OP.COLON_ITS ---
Patient Name: May Bobby Procedure Date: 02/11/2021 9:23 AM Date of : 1935 Age: 85 Procedure: Colonoscopy Indications: Generalized abdominal pain Providers: Yadiel Engel MD Medicines: See the Anesthesia note for documentation of the administered medications Patient Profile: Last Colonoscopy: 3 years ago. Complications: No immediate complications. Procedure: Pre-Anesthesia Assessment: - Prior to the procedure, a History and Physical was performed, and patient medications and allergies were reviewed. The patient's tolerance of previous anesthesia was also reviewed. The risks and benefits of the procedure and the sedation options and risks were discussed with the patient. All questions were answered, and informed consent was obtained. Prior Anticoagulants: The patient has taken no previous anticoagulant or antiplatelet agents. ASA Grade Assessment: II - A patient with mild systemic disease. After reviewing the risks and benefits, the patient was deemed in satisfactory condition to undergo the procedure. After I obtained informed consent, the scope was passed under direct vision. Throughout the procedure, the patient's blood pressure, pulse, and oxygen saturations were monitored continuously. The pediatric colonoscope was introduced through the anus and advanced to the cecum, identified by appendiceal orifice and ileocecal valve. The colonoscopy was performed without difficulty. The patient tolerated the procedure well. The quality of the bowel preparation was good. The ileocecal valve and the appendiceal orifice were photographed. Scope In: 9:25:42 AM Scope Withdrawal Time 0 hours 8 minutes 23 seconds Scope Out: 9:39:28 AM Total Procedure Duration Time 0 hours 13 minutes 46 seconds Findings: Hemorrhoids were found on perianal exam. There was evidence of a prior end-to-end colo-rectal anastomosis in the distal sigmoid colon. This was patent and was characterized by healthy appearing mucosa. Multiple diverticula were found in the sigmoid colon. A diffuse area of mildly erythematous mucosa was found in the sigmoid colon. Biopsies were taken with a cold forceps for histology. The exam was otherwise without abnormality. Impression: - Hemorrhoids found on perianal exam. - Patent end-to-end colo-rectal anastomosis, characterized by healthy appearing mucosa. - Diverticulosis in the sigmoid colon. - Erythematous mucosa in the sigmoid colon. Biopsied. - The examination was otherwise normal. Recommendation: - Discharge patient to home. - Resume previous diet. - Continue present medications. - Repeat colonoscopy is not recommended due to current age (66 years or older) for screening purposes. - Telephone my office for pathology results in 1 week. Mild irritation of the sigmoid colon upon scope passage. Possible mild nonspecific colitis or possible episode of mild diverticulitis. Lumen is widely patent. Biopsy of this area pending. Procedure Code(s): --- Professional --- 54643, Colonoscopy, flexible; with biopsy, single or multiple Diagnosis Code(s): --- Professional --- K64.9, Unspecified hemorrhoids Z98.0, Intestinal bypass and anastomosis status K63.89, Other specified diseases of intestine R10.84, Generalized abdominal pain K57.30, Diverticulosis of large intestine without perforation or abscess without bleeding CPT copyright 2017 [employer]. All rights reserved. The codes documented in this report are preliminary and upon prison guard review may be revised to meet current compliance requirements. Yadiel Engel MD 02/11/2021 9:50:26 AM This report has been signed electronically. Number of Addenda: 0 Note Initiated On: 02/11/2021 9:23 AM
[2021-02-11 09:55] VITALS: BP 143/83; BP 166/85; PULSE 59; RESP 16; O2SAT 98
[2021-02-11 10:00] VITALS: BP 160/82; BP 166/85; PULSE 61; RESP 16; O2SAT 98
[2021-02-11 10:24] VITALS: BP 166/85
== END 2021-02-11 10:44 ==
LOC: EN 08:13 → AC 08:14
PROVIDERS: Visit Provider Surgery
PROC: 0DJD8ZZ Inspection of Lower Intestinal Tract, Via Natural or Artificial Opening Endoscopic (ICD-10-PCS; CPT 45378; principal; 2021-02-11 09:10)
DX: K29.50 Unspecified chronic gastritis without bleeding (principal); K31.7 Polyp of stomach and duodenum; K44.9 Diaphragmatic hernia without obstruction or gangrene; K21.00 Gastro-esophageal reflux disease with esophagitis, without bleeding; K57.30 Diverticulosis of large intestine without perforation or abscess without bleeding; K59.00 Constipation, unspecified; K64.9 Unspecified hemorrhoids; Z98.0 Intestinal bypass and anastomosis status; E03.9 Hypothyroidism, unspecified; Z87.19 Personal history of other diseases of the digestive system; Z85.038 Personal history of other malignant neoplasm of large intestine; Z90.49 Acquired absence of other specified parts of digestive tract; Z79.899 Other long term (current) drug therapy
CPT/HCPCS: 43239; 45380; 88305; 88313; 88342; J7120; J2405

== ENCOUNTER 2023-12-11 15:46 | Emergency (ER) | payer MEDICARE, OTHER, SELFPAY ==
[2023-12-11 15:49] VITALS: BP 141/90; PULSE 110; RESP 18; TEMP 36.5; O2SAT 97; BMI 24.0
--- NOTE | 2023-12-11 16:09 | CT_ITS ---
INDICATION: abdominal pain EXAMINATION: CT Abdomen And Pelvis W/ Contrast Injection TECHNIQUE: Helically acquired images were obtained of the abdomen and pelvis after IV contrast. A radiation dose optimization technique was used for this scan. IV Contrast dosage and agent: IV 100mL [id number] Oral contrast: None. COMPARISON: 06/18/2020. FINDINGS: Visualized lung bases: Unremarkable Liver: Unremarkable Gallbladder: Unremarkable Spleen: Unremarkable Pancreas: Unremarkable Adrenal Glands: Unremarkable Kidneys: Unremarkable Vasculature: Mild scattered aortoiliac atherosclerotic calcifications. GI Tract: Moderate circumferential wall thickening of the sigmoid and descending colon with surrounding mesenteric fat stranding. No focal fluid collection or free air. Lymphadenopathy: None Peritoneum: No ascites. Bladder: Unremarkable Reproductive organs: Unremarkable Bones/Soft tissues: There are diffuse degenerative changes of the spine. Bilateral fat-containing inguinal hernias. CT/Abdomen/Pelvis W IV Cont ONLY IMPRESSION: Findings suspicious for infectious versus inflammatory colitis. Bilateral fat-containing inguinal hernias. Electronically Signed: Jm Cornejo MD at 18:33 EDT ,
--- NOTE | 2023-12-11 16:12 | ED.VIS.GI ---
HPI <KIN Fry - Last Filed: 12/11/23 19:57> HPI - GI History of Present Illness Chief Complaint: Diarrhea Narrative Narrative: 87-year-old female with a past medical history of colon cancer s/p resection and chemo and radiation about 20 years ago. She states she has had no reoccurrence. Over the last 4 days she has had LLQ abdominal pain and diarrhea. She states every 30 to 60 minutes she has an episode of either loose brown stool or clear mucus. No melena or hematochezia. She states she ate raw vegetables twice last week which is atypical for her and may have caused the problem. She has no fever, nausea or vomiting. She had a colonoscopy with Dr. Engel about 3 years ago she reports was clear. No recent antibiotic use. [facility] <KIN Fry - Last Filed: 12/11/23 19:57> [facility] Medical History (Updated 12/11/23 @ 18:48 by KIN Fry) Abdominal pain Alcohol use Cancer Colon cancer Gastric reflux History of diverticulitis Hypothyroid Non-smoker Personal history of colon cancer Thyroid disease Wears glasses Wears hearing aid Home Medications Levothyroxine Sodium 25 mcg PO DAILY 06/17/18 [History Last Taken Unknown] brimonidine 0.2 % eye drops 1 drp EACH EYE DAILY 06/17/18 [History Last Taken Unknown] omeprazole 20 mg capsule,delayed release 20 mg PO DAILY 02/07/21 [History Last Taken Unknown] psyllium 1 packet PO DAILY 02/07/21 [History Last Taken Unknown] amoxicillin 875 mg-potassium clavulanate 125 mg tablet 1 tab PO BID 7 days #14 tabs 12/11/23 [Rx Last Taken Unknown] Allergy/AdvReac Type Severity Reaction Status Date / Time bee venom protein (honey bee) Allergy Swelling Verified 12/11/23 15:48 bacitracin AdvReac Rash Verified 12/11/23 15:48 [From Neosporin ([id number])] neomycin AdvReac Rash Verified 12/11/23 15:48 [From Neosporin ([id number])] Penicillins AdvReac Hives Verified 12/11/23 15:48 polymyxin B AdvReac Rash Verified 12/11/23 15:48 [From Neosporin ([id number])] Family History Aunt Breast cancer Colon cancer Brother Diabetes Surgical History S/P colectomy (~1995) S/P colonoscopy (~2017) Social History (Updated 07/01/20 @ 15:[address] Yadiel Engel MD) Smoking Status: Never smoker alcohol intake: current alcohol intake frequency: 0-2 drinks per day ROS <KIN Fry - Last Filed: 12/11/23 19:57> ROS ED ROS Narrative Constitutional: Negative for fever, chills, malaise CVS: Negative for chest pain. Respiratory: Negative for shortness of breath. GI: Positive for abdominal pain, diarrhea. Negative for nausea, vomiting, melena, hematochezia. : Negative for dysuria. EXAM <KIN Fry - Last Filed: 12/11/23 19:57> Physical Exam Narrative Exam Narrative: CONST: Patient sitting in no acute distress. EYES: Normal inspection. NECK: Normal inspection. RESP: No respiratory distress, CTAB. CVS: Mildly tachycardic with regular rhythm, no murmur, no gallop. ABD: Soft with LLQ tenderness, no guarding or rebound, nondistended, no hepatosplenomegaly. SKIN: Color normal, no rash, warm, dry, intact. EXTREMITIES: Normal appearance, no pedal edema. NEURO: Alert and answering questions appropriately. PSYCH: Normal affect. Const Vital Signs: 12/11/23 15:49 12/11/23 17:47 12/11/23 19:00 Temperature 97.7 F L Temperature Source Temporal Pulse Rate 110 H 88 91 Respiratory Rate 18 18 16 Blood Pressure 141/90 H 139/78 H 129/78 H Blood Pressure Mean 107 98 95 Pulse Ox 97 96 96 Oxygen Delivery Method Room Air Room Air Room Air <Dr. Davonte Guadarrama, - Last Filed: 12/11/23 21:38> Physical Exam Const Vital Signs: 12/11/23 15:49 12/11/23 17:47 12/11/23 19:00 Temperature 97.7 F L Temperature Source Temporal Pulse Rate 110 H 88 91 Respiratory Rate 18 18 16 Blood Pressure 141/90 H 139/78 H 129/78 H Blood Pressure Mean 107 98 95 Pulse Ox 97 96 96 Oxygen Delivery Method Room Air Room Air Room Air [facility] <KIN Fry - Last Filed: 12/11/23 19:57> [facility] Narrative Medical decision making narrative: History gathered from: Patient and daughter Differential includes colitis, diverticulitis Patient said 4 days of left lower quadrant abdominal pain and diarrhea. She appears well and nontoxic. Afebrile and hemodynamically stable. She is tender in the LLQ with no peritoneal signs. She has no abdominal distention. Normal bowel sounds. Labs show white count of 12.6, minimal hypokalemia at 3.4, normal renal function. Lactate is 1.2. Liver enzymes WNL. Urinalysis shows signs of infection but is contaminated. She has no urinary symptoms. However with colitis and possible UTI she will be treated with Augmentin. Her daughter was very concerned she is getting dehydrated from the frequency of diarrhea and wanted her to be admitted. I discussed with them she has not had any nausea/vomiting, she has no evidence of electrolyte derangement or YOUNG, her urine specific gravity is normal and there are no ketones so I do not think she requires admission for IV hydration. She is able to eat and drink just has not felt like doing so very much. She was given a total of 2 L of IV fluids here and the first dose of Augmentin. I discussed return precautions. A stool sample was sent for testing and should return over the next few days. She was discharged in stable condition. Lab Data Attestation: I reviewed the patient's lab results. Labs: Laboratory Results - last 24 hr 12/11/23 12/11/23 16:30 17:55 WBC 12.6 H RBC 4.56 Hgb 14.3 Hct 43.1 MCV 94.5 MCH 31.4 MCHC 33.2 RDW Std Deviation 44.9 H RDW Coeff of Lea 12.9 Plt Count 240 MPV 9.0 Immature Gran % (Auto) 0.500 Neut % (Auto) 78.9 H Lymph % (Auto) 11.0 L Spink % (Auto) 9.0 Eos % (Auto) 0.3 Baso % (Auto) 0.3 Absolute Neuts (auto) 10.0 H Absolute Lymphs (auto) 1.39 Nucleated RBC % 0 Sodium 136 Potassium 3.4 L Chloride 104 Carbon Dioxide 24.0 Anion Gap 8 BUN 18 Creatinine 0.66 Estim Creat Clear Calc 39.18 Est GFR (MDRD) Af Amer 109 Est GFR (MDRD) Non-Af 90 BUN/Creatinine Ratio 27.4 H Glucose 143 H Lactic Acid 1.2 Calcium 8.0 L Total Bilirubin 0.70 AST 14 L ALT 17 Alkaline Phosphatase 44 L Total Protein 6.3 L Albumin 3.2 Globulin 3.1 Albumin/Globulin Ratio 1.0 Urine Color Yellow Urine Clarity Clear Urine pH 6.0 Ur Specific [place] 1.010 Urine Protein 30 H Urine Glucose (UA) Normal Urine Ketones 50 H Urine Occult Blood 25 H Urine Nitrite Negative Urine Bilirubin Negative Urine Urobilinogen Normal Ur Leukocyte Esterase 500 H Urine RBC 0 SEEN Urine WBC 25-50 SEEN Ur Squamous Epith Cells 5-10 SEEN Urine Bacteria 1+ Urine Mucus 0 SEEN Radiography Diagnostic Testing: Clinical Impression(s) from Imaging Studies Abdomen/Pelvis CT 12/11/23 16:09 IMPRESSION: Findings suspicious for infectious versus inflammatory colitis. Bilateral fat-containing inguinal hernias. Electronically Signed: Jm Cornejo MD at 18:33 EDT , <Dr. Davonte Guadarrama, DO - Last Filed: 12/11/23 21:38> [facility] Lab Data Labs: Laboratory Results - last 24 hr 12/11/23 12/11/23 16:30 17:55 WBC 12.6 H RBC 4.56 Hgb 14.3 Hct 43.1 MCV 94.5 MCH 31.4 MCHC 33.2 RDW Std Deviation 44.9 H RDW Coeff of Lea 12.9 Plt Count 240 MPV 9.0 Immature Gran % (Auto) 0.500 Neut % (Auto) 78.9 H Lymph % (Auto) 11.0 L Spink % (Auto) 9.0 Eos % (Auto) 0.3 Baso % (Auto) 0.3 Absolute Neuts (auto) 10.0 H Absolute Lymphs (auto) 1.39 Nucleated RBC % 0 Sodium 136 Potassium 3.4 L Chloride 104 Carbon Dioxide 24.0 Anion Gap 8 BUN 18 Creatinine 0.66 Estim Creat Clear Calc 39.18 Est GFR (MDRD) Af Amer 109 Est GFR (MDRD) Non-Af 90 BUN/Creatinine Ratio 27.4 H Glucose 143 H Lactic Acid 1.2 Calcium 8.0 L Total Bilirubin 0.70 AST 14 L ALT 17 Alkaline Phosphatase 44 L Total Protein 6.3 L Albumin 3.2 Globulin 3.1 Albumin/Globulin Ratio 1.0 Urine Color Yellow Urine Clarity Clear Urine pH 6.0 Ur Specific [place] 1.010 Urine Protein 30 H Urine Glucose (UA) Normal Urine Ketones 50 H Urine Occult Blood 25 H Urine Nitrite Negative Urine Bilirubin Negative Urine Urobilinogen Normal Ur Leukocyte Esterase 500 H Urine RBC 0 SEEN Urine WBC 25-50 SEEN Ur Squamous Epith Cells 5-10 SEEN Urine Bacteria 1+ Urine Mucus 0 SEEN Radiography Diagnostic Testing: Clinical Impression(s) from Imaging Studies Abdomen/Pelvis CT 12/11/23 16:09 IMPRESSION: Findings suspicious for infectious versus inflammatory colitis. Bilateral fat-containing inguinal hernias. Electronically Signed: Jm Cornejo MD at 18:33 EDT , Treatment and Re-Evaluation :: I have personally performed a face to face assessment of the patient and have reviewed the VANESSA Note. I performed a substantive portion of the visit including all aspects of the following. My cruz findings include: History: Patient presents with left lower abdominal pain that has been getting worse over the past 4 days. Patient describes it as aching. Patient states she has been having diffuse watery diarrhea for the past 4 days as well. Patient states anytime she eats or drink anything she has to have a bowel movement. Daughter states that because of this, she has not been wanting to eat or drink anything for the past few days. Patient denies any melena or hematochezia. Patient denies any nausea or vomiting. Patient denies any dysuria or hematuria. Patient denies any fevers or chills. Exam: Vital signs are stable. Patient is afebrile. Patient is in no acute distress. Oral mucosa is pink and moist. Neck is supple. Trachea is midline. Is no JVD. Heart was regular rate and rhythm. Lungs are clear and equal bilaterally. Abdomen is soft. Bowel sounds are normal. There is left lower quadrant tenderness. There is no rebound or guarding noted. Cranial nerve XII are intact. There are no focal motor or sensory deficits noted. Medical Decision Making: Differential diagnosis includes diverticulitis, colitis, gastroenteritis, urinary tract infection, pyelonephritis, dehydration, and electrolyte abnormality. CT scan of the abdomen pelvis will be obtained to assess for colitis, diverticulitis, bowel obstruction, and perforation. CBC will be obtained to assess for leukocytosis and anemia. Comprehensive metabolic profile will be obtained to assess for hepatic function, renal function, and electrolyte abnormality. Urinalysis will be obtained to assess for urinary tract infection. Serum lactate will be obtained to assess for sepsis. Patient was given IV fluids. Patient was given morphine and Zofran. CBC was reviewed. There is a mild leukocytosis of 12.6. The remainder was essentially within normal limits. Comprehensive metabolic profile was reviewed. Potassium was slightly low at 3.4. Glucose was mildly elevated at 143. The remainder was essentially within normal limits. Lactate was reviewed and was normal at 1.2. Urinalysis was reviewed. Leukocyte esterase was 500 with 25-50 white blood cells and 1+ bacteria. CT scan of the abdomen and pelvis was obtained. There is evidence of colitis. There is no free air or free fluid. This was interpreted by the radiologist and was also independently reviewed by myself. Patient was advised of her findings. Patient was given a dose of Augmentin here. Patient was given a repeat bolus of normal saline. Patient was given a prescription for Augmentin. Patient was instructed to drink plenty of fluids. Patient was instructed to follow-up with her primary care physician in 5 to 7 days. Patient and family understood and were agreeable with the plan. All questions were answered. Discharge Plan Triage Chief Complaint: Diarrhea ED Midlevel Provider: Katya Euceda ED Provider: Davonte Guadarrama Dx/Rx/DC Orders Clinical Impression: Colitis, Diarrhea Instructions: ED Understanding Colitis, ED Diet Vomiting Diarrhea Prescriptions: New amoxicillin-pot clavulanate 875-125 mg tablet 1 tab PO BID 7 Days Qty: 14 0RF No Action brimonidine 0.2 % bottle 1 drp EACH EYE DAILY Levothyroxine Sodium 25 mcg PO DAILY Metamucil Packet 1 packet PO DAILY omeprazole [Prilosec] 20 mg Capsule,Delayed Release(Dr/Ec) 20 mg PO DAILY Primary Care Provider: Zuly Merritt Referrals: Zuly Merritt MD [Primary Care Provider] -
[2023-12-11] MEDS: Morphine 2 MG/ML Syringe IV (16:41)
[2023-12-11] MEDS: Ondansetron 4 MG/2 ML Vial IV (16:41)
[2023-12-11] MEDS: 0.9% Normal Saline (1000mL) 1,000 ML 999 ML IV ×2 (16:43→19:52)
[2023-12-11 16:51] LABS: Absolute Lymphocyte Count 1.39 X10^3/uL (0.83-4.51); Basophil# 0.04 X10^3/uL; Basophil% 0.3 % (0-1); Eosinophil# 0.04 X10^3/uL; Eosinophils% 0.3 % (0-5); Hematocrit 43.1 % (37-47); Hemoglobin 14.3 g/dL (12.0-15.0); Lymphocyte # 1.39 X10^3/ul (0.83-4.51); Mean Corp Hgb Conc 33.2 g/dL (32-36); Mean Corpuscular Hgb 31.4 pg (27.0-32.0); Mean Corpuscular Volume 94.5 fL (81-99); Monocyte# 1.13 X10^3/uL; NRBC Flagged by Analyzer 0 % (0-5); Neutrophil # 9.95 X10^3/uL (2.7-7.7); Neutrophil % 78.9 % (47-70); Platelet Count 240 K/mm3 (150-450); RBC Distribution Width CV 12.9 % (11.6-14.6); RBC Distribution Width SD 44.9 fl (35.1-43.9); Red Blood Count 4.56 M/mm3 (4.2-5.4); White Blood Count 12.6 K/mm3 (4.4-11.0)
[2023-12-11 17:13] LABS: AST(SGOT) 14 U/L (15-37); Alanine Aminotransfer ALT/SGPT 17 U/L (13-56); Albumin, Serum 3.2 g/dL (3.2-5.0); Alkaline Phosphatase 44 U/L (45-117); Anion Gap 8 (5-15); BUN 18 mg/dL (7-18); BUN/Creat Ratio 27.4 RATIO (10-20); Chloride 104 mmol/L (98-107); Creatinine, Serum 0.66 mg/dL (0.55-1.02); EST Glomerular Filtration Rate 90 mL/min (>60); Est Glom Filt Rate - Afr Amer 109 mL/min (>60); Estimated Creatinine Clearance 39.18 ml/min; Globulin 3.1 g/dL (2.2-4.2); Glucose 143 mg/dL (74-106); Potassium 3.4 mmol/L (3.5-5.1); Protein, Total 6.3 g/dL (6.4-8.2); Sodium Level 136 mmol/L (136-145)
[2023-12-11 17:15] LABS: Lactic Acid 1.2 mmol/L (0.4-1.9)
[2023-12-11 17:47] VITALS: BP 139/78; PULSE 88; RESP 18; O2SAT 96
[2023-12-11 18:08] LABS: Mucous, Urine 0 SEEN /hpf (<or=2+); Red Blood Cells-Urine 0 SEEN /hpf (0-5)
[2023-12-11 18:10] LABS: Color, Urine Yellow (Yellow); Glucose, Dipstick Normal (Normal); Ketone-Dipstick 50 mg/dl (Negative); Leukocyte Esterase-Dipstick 500 /ul (Negative); Nitrite-Dipstick Negative (Negative); Occult Blood-Urine 25 /ul (Negative); Protein-Dipstick 30 mg/dl (Negative); Urine Bilirubin Dipstick Negative (Negative); Urine Clarity Clear (Clear); Urine Urobilinogen Normal (Normal)
[2023-12-11 18:11] LABS: Squamous Epithelial Cells - UA 5-10 SEEN /hpf (5-10); White Blood Cells 25-50 SEEN /hpf (0-5)
[2023-12-11 18:12] LABS: Bacteria 1+ /hpf (None Seen)
[2023-12-11 19:00] VITALS: BP 129/78; PULSE 91; RESP 16; O2SAT 96
[2023-12-11] MEDS: Amox/Clavulanate 875 MG Tablet PO (19:52)
[2023-12-11 20:47] VITALS: BP 122/85; PULSE 87; RESP 16; TEMP 37.1; O2SAT 93
== END 2023-12-11 20:55 | disposition home or self-care (01) ==
PROVIDERS: Physician Assistant; Emergency Provider Emergency Medicine; Visit Provider Emergency Medicine
DX: K52.9 Noninfective gastroenteritis and colitis, unspecified (principal); Z85.038 Personal history of other malignant neoplasm of large intestine; Z92.21 Personal history of antineoplastic chemotherapy; Z92.3 Personal history of irradiation; E03.9 Hypothyroidism, unspecified; K21.9 Gastro-esophageal reflux disease without esophagitis; Z79.899 Other long term (current) drug therapy; Z90.49 Acquired absence of other specified parts of digestive tract
CPT/HCPCS: 99283; 74177; 80053; 81001; 83605; 85025; J7030; J7040; Q9967; A4216; J2405

== ENCOUNTER 2023-12-12 16:58 | Inpatient (IN) | payer MEDICARE, OTHER, SELFPAY ==
[2023-12-12 16:59] VITALS: BP 125/81; PULSE 109; RESP 18; TEMP 36.2; O2SAT 94; BMI 24.0
--- NOTE | 2023-12-12 17:36 | EDS_ITS ---
HPI <KIN Fry - Last Filed: 12/12/23 19:41> History of Present Illness Chief Complaint: Nausea/Vomiting/Diarrhea Narrative Narrative: 87-year-old female here with 5 days of LLQ abdominal pain and diarrhea. She was seen here yesterday with a CT scan showing colitis and also had a possible UTI and was prescribed Augmentin. She took a dose of the antibiotic last night and this morning and states she is just been laying in bed and only drink half a gl ass of water. She feels very weak and dehydrated. She has no nausea or vomiting. She has continued left lower quadrant abdominal pain and states she is changing her pad every half an hour with small volume of diarrhea. [facility] <KIN Fry - Last Filed: 12/12/23 19:41> [facility] Medical History (Updated 12/12/23 @ 17:54 by KIN Fry) Abdominal pain Alcohol use Cancer Colon cancer Gastric reflux History of diverticulitis Hypothyroid Non-smoker Personal history of colon cancer Thyroid disease Wears glasses Wears hearing aid Home Medications Levothyroxine Sodium 25 mcg PO DAILY thyroid 06/17/18 [History Last Taken Unknown] omeprazole 20 mg capsule,delayed release 20 mg PO DAILY reflux 02/07/21 [History Last Taken Unknown] psyllium 1 packet PO DAILY PRN constipation 02/07/21 [History Last Taken Unknown] amoxicillin 875 mg-potassium clavulanate 125 mg tablet 1 tab PO BID antibiotoc 7 days #14 tabs 12/11/23 [Rx Last Taken Unknown] amlodipine 5 mg tablet 5 mg PO DAILY bp 12/12/23 [History Last Taken Unknown] dorzolamide 22.3 mg-timolol 6.8 mg/mL eye drops 1 drp ophthalmic (eye) BID glaucoma 12/12/23 [History Last Taken Unknown] latanoprostene bunod 0.024 % eye drops (Vyzulta) 1 drp EACH EYE QHS glaucoma 12/12/23 [History Last Taken Unknown] multivitamin with minerals-folic acid 80 mcg chewable tablet (Centrum Adult 50 Plus) 1 tab PO DAILY supplement 12/12/23 [History Last Taken Unknown] vitamins A,C,F-jqid-esdumv 4,296 mcg-226 mg-90 mg capsule (Healthy Eyes SuperVision) 1 cap PO DAILY eye health 12/12/23 [History Last Taken Unknown] Allergy/AdvReac Type Severity Reaction Status Date / Time bee venom protein (honey bee) Allergy Swelling Verified 12/12/23 16:58 bacitracin AdvReac Rash Verified 12/12/23 16:58 [From Neosporin ([id number])] neomycin AdvReac Rash Verified 12/12/23 16:58 [From Neosporin ([id number])] Penicillins AdvReac Hives Verified 12/12/23 16:58 polymyxin B AdvReac Rash Verified 12/12/23 16:58 [From Neosporin ([id number])] Family History Aunt Breast cancer Colon cancer Brother Diabetes Surgical History S/P colectomy (~1995) S/P colonoscopy (~2017) Social History (Updated 07/01/20 @ 15:[address] Yadiel Engel MD) Smoking Status: Never smoker alcohol intake: current alcohol intake frequency: 0-2 drinks per day ROS <KIN Fry - Last Filed: 12/12/23 19:41> ROS ED ROS Narrative Constitutional: Negative for fever, chills. GI: Positive for abdominal pain, diarrhea. Negative for nausea, vomiting, melena, hematochezia. : Negative for dysuria. EXAM <KIN Fry - Last Filed: 12/12/23 19:41> Physical Exam Narrative Exam Narrative: CONST: Patient sitting in no acute distress. EYES: Normal inspection. NECK: Normal inspection. RESP: No respiratory distress, CTAB. CVS: Regular rate and rhythm, no murmur, no gallop. ABD: Soft with LLQ tenderness, no guarding or rebound, nondistended. SKIN: Color normal, no rash, warm, dry, intact. EXTREMITIES: Normal appearance, no pedal edema. NEURO: Alert and answering questions appropriately. PSYCH: Normal affect. Const Vital Signs: 12/12/23 16:59 12/12/23 18:59 12/12/23 20:00 Temperature 97.2 F L 97.9 F Temperature Source Temporal Oral Pulse Rate 109 H 71 Respiratory Rate 18 16 16 Blood Pressure 125/81 H 114/72 Blood Pressure Mean 95 86 Pulse Ox 94 97 Oxygen Delivery Method Room Air Room Air 12/12/23 20:00 Temperature 97.9 F Temperature Source Pulse Rate 71 Respiratory Rate 16 Blood Pressure 114/72 Blood Pressure Mean 86 Pulse Ox 97 Oxygen Delivery Method <Dr. Davonte Guadarrama DO - Last Filed: 12/12/23 20:42> Physical Exam Const Vital Signs: 12/12/23 16:59 12/12/23 18:59 12/12/23 20:00 Temperature 97.2 F L 97.9 F Temperature Source Temporal Oral Pulse Rate 109 H 71 Respiratory Rate 18 16 16 Blood Pressure 125/81 H 114/72 Blood Pressure Mean 95 86 Pulse Ox 94 97 Oxygen Delivery Method Room Air Room Air 12/12/23 20:00 Temperature 97.9 F Temperature Source Pulse Rate 71 Respiratory Rate 16 Blood Pressure 114/72 Blood Pressure Mean 86 Pulse Ox 97 Oxygen Delivery Method MDM <KIN Fry - Last Filed: 12/12/23 19:41> [facility] Narrative Medical decision making narrative: History gathered from: Patient and daughter Patient has had 5 days of left lower quadrant abdominal pain and diarrhea. Seen in the ED yesterday and diagnosed with colitis and started on Augmentin. She has barely been drinking and presents with concern for dehydration, fatigue, and continued diarrhea. She appears well and nontoxic. She is tachycardic at 109 with otherwise normal vital signs. Abdomen is soft with persistent left lower quadrant tenderness. White count of 11.2 is trending down. There is mild hypokalemia at 3.1. BUN is 13, creatinine 0.49. She was given IV fluids and p.o. potassium. Patient family feels like she is worsening and cannot go home. Case was discussed with the hospitalist for admission. Lab Data Attestation: I reviewed the patient's lab results. Labs: Laboratory Results - last 24 hr 12/12/23 18:20 WBC 11.2 H RBC 4.41 Hgb 14.1 Hct 41.5 MCV 94.1 MCH 32.0 MCHC 34.0 RDW Std Deviation 45.1 H RDW Coeff of Lea 13.1 Plt Count 221 MPV 8.9 Immature Gran % (Auto) 0.300 Neut % (Auto) 83.2 H Lymph % (Auto) 5.0 L Lee % (Auto) 11.1 H Eos % (Auto) 0.1 Baso % (Auto) 0.3 Absolute Neuts (auto) 9.4 H Absolute Lymphs (auto) 0.56 L Nucleated RBC % 0 Differential Comment SEE COMMENT Platelet Estimate ADEQUATE RBC Morphology N CHROM Anisocytosis RARE Macrocytosis RARE Sodium 137 Potassium 3.1 L Chloride 106 Carbon Dioxide 22.0 Anion Gap 9 BUN 13 Creatinine 0.49 L Estim Creat Clear Calc 39.18 Est GFR (MDRD) Af Amer 154 Est GFR (MDRD) Non-Af 127 BUN/Creatinine Ratio 26.6 H Glucose 159 H Calcium 7.2 L <Dr. Davonte Guadarrama, DO - Last Filed: 12/12/23 20:42> [facility] Lab Data Labs: Laboratory Results - last 24 hr 12/12/23 18:20 WBC 11.2 H RBC 4.41 Hgb 14.1 Hct 41.5 MCV 94.1 MCH 32.0 MCHC 34.0 RDW Std Deviation 45.1 H RDW Coeff of Lea 13.1 Plt Count 221 MPV 8.9 Immature Gran % (Auto) 0.300 Neut % (Auto) 83.2 H Lymph % (Auto) 5.0 L Lee % (Auto) 11.1 H Eos % (Auto) 0.1 Baso % (Auto) 0.3 Absolute Neuts (auto) 9.4 H Absolute Lymphs (auto) 0.56 L Nucleated RBC % 0 Differential Comment SEE COMMENT Platelet Estimate ADEQUATE RBC Morphology N CHROM Anisocytosis RARE Macrocytosis RARE Sodium 137 Potassium 3.1 L Chloride 106 Carbon Dioxide 22.0 Anion Gap 9 BUN 13 Creatinine 0.49 L Estim Creat Clear Calc 39.18 Est GFR (MDRD) Af Amer 154 Est GFR (MDRD) Non-Af 127 BUN/Creatinine Ratio 26.6 H Glucose 159 H Calcium 7.2 L Treatment and Re-Evaluation :: I have personally performed a face to face assessment of the patient and have reviewed the VANESSA Note. I performed a substantive portion of the visit including all aspects of the following. My cruz findings include: History: Patient presents with worsening left lower quadrant pain. Patient was seen in the emergency department yesterday and diagnosed with colitis. Patient was given a prescription for Augmentin. Patient was given IV fluids yesterday. Patient states she has only been able to drink small amounts of fluids today. Patient took 1 dose of Augmentin today. Patient states she feels more fatigued and weak today. Exam: Vital signs are stable except for a mild tachycardia of 109. Patient is afebrile. Patient is in no acute distress. Oral mucosa is pink and moist. Neck is supple. Trachea is midline. There is no JVD. Heart was regular and tachycardic. Lungs are clear and equal bilaterally. There is good respiratory effort noted. Abdomen is soft. Bowel sounds are normal. There is mild left lower quadrant tenderness. There is no rebound or guarding noted. Cranial nerves II through XII are intact. There are no focal motor or sensory deficits noted. Medical Decision Making: Differential diagnosis includes colitis, dehydration, electrolyte abnormality, and debility. CBC will be obtained to assess for leukocytosis and anemia. Basic metabolic profile will be obtained to assess for electrolyte abnormality and renal function. Patient was given IV fluids here. CBC was reviewed. There is a mild leukocytosis of 11.2. This was improved from yesterday. Basic metabolic profile was reviewed. Potassium was slightly low at 3.1. Creatinine was slightly low at 0.49. Glucose was slightly elevated at 159. The remainder is within normal limits. Case will be discussed with the hospitalist for admission. He will admit the patient to his service. Patient understood and was agreeable with the plan. All questions were answered. Discharge Plan Dx/Rx/DC Orders Clinical Impression: Colitis, Dehydration Disposition Disposition: Acute Care [facility] Discharge Date/Time: 12/12/23 20:16
[2023-12-12 18:30] LABS: Absolute Lymphocyte Count 0.56 X10^3/uL (0.83-4.51); Absolute Neutrophil Count 9.4 X10^3/uL (2.0-7.7); Basophil# 0.03 X10^3/uL; Basophil% 0.3 % (0-1); Eosinophil# 0.01 X10^3/uL; Eosinophils% 0.1 % (0-5); Hematocrit 41.5 % (37-47); Hemoglobin 14.1 g/dL (12.0-15.0); Lymphocyte # 0.56 X10^3/ul (0.83-4.51); Mean Corpuscular Volume 94.1 fL (81-99); Mean Platelet Vol. 8.9 fl (6.2-12.0); Monocyte# 1.25 X10^3/uL; Monocyte% 11.1 % (0-10); NRBC Flagged by Analyzer 0 % (0-5); Neutrophil # 9.36 X10^3/uL (2.7-7.7); Neutrophil % 83.2 % (47-70); POSITIVE DIFFERENTIAL YES; Platelet Count 221 K/mm3 (150-450); RBC Distribution Width CV 13.1 % (11.6-14.6); RBC Distribution Width SD 45.1 fl (35.1-43.9); Red Blood Count 4.41 M/mm3 (4.2-5.4); White Blood Count 11.2 K/mm3 (4.4-11.0)
[2023-12-12 18:32] LABS: Differential Indicated SCAN CRITERIA MET
[2023-12-12] MEDS: 0.9% Normal Saline (1000mL) 1,000 ML 999 ML IV (18:32)
[2023-12-12 18:48] LABS: Anion Gap 9 (5-15); BUN 13 mg/dL (7-18); BUN/Creat Ratio 26.6 RATIO (10-20); Calcium,Total 7.2 mg/dL (8.5-10.1); Chloride 106 mmol/L (98-107); Creatinine, Serum 0.49 mg/dL (0.55-1.02); EST Glomerular Filtration Rate 127 mL/min (>60); Est Glom Filt Rate - Afr Amer 154 mL/min (>60); Estimated Creatinine Clearance 39.18 ml/min; Glucose 159 mg/dL (74-106); Potassium 3.1 mmol/L (3.5-5.1); Sodium Level 137 mmol/L (136-145)
[2023-12-12] MEDS: Morphine 4 MG/ML Syringe IV (18:56)
[2023-12-12] MEDS: Ondansetron 4 MG/2 ML Vial IV (18:56)
[2023-12-12 18:59] VITALS: RESP 16
[2023-12-12 18:59] LABS: Anisocytosis RARE; Platelet Estimate ADEQUATE (ADEQ); Red Cell Morphology N CHROM NORMAL (NORM C&C)
[2023-12-12 19:00] LABS: Macrocytosis RARE
[2023-12-12] MEDS: Potassium Chloride Oral Tablet 20 MEQ 40 MEQ PO (19:15)
[2023-12-12 20:00] VITALS: BP 114/72; PULSE 71; RESP 16; TEMP 36.6; O2SAT 97
--- NOTE | 2023-12-12 20:07 | PCM.HP.STD ---
HPI - General General Date of Admission: 12/12/23 HPI Narrative ROSCOE COHEN, is a 87 F who presents to the hospital with feeling unwell. She was seen yesterday and was found to have a possible UTI with diverticulitis. She was started on Augmentin and sent home as she did not have any significant lab work abnormalities or reasons why she could not manage herself at home. However at home she managed to take 2 doses of her antibiotic before she continued to have diarrhea and since she was still having diarrhea she and her friend became worried and presented back to the ER. Creatinine is stable and her white count is improved however they seem very nervous about going home. Unfortunately stool cultures and urine cultures were not obtained yesterday and given the fact that she has had 2 doses of antibiotics on likely to be helpful at this time. [facility] Medical History (Updated 12/12/23 @ 17:54 by KIN Fry) Abdominal pain Alcohol use Cancer Colon cancer Gastric reflux History of diverticulitis Hypothyroid Non-smoker Personal history of colon cancer Thyroid disease Wears glasses Wears hearing aid Home Medications Levothyroxine Sodium 25 mcg PO DAILY thyroid 06/17/18 [History Last Taken Unknown] omeprazole 20 mg capsule,delayed release 20 mg PO DAILY reflux 02/07/21 [History Last Taken Unknown] psyllium 1 packet PO DAILY PRN constipation 02/07/21 [History Last Taken Unknown] amoxicillin 875 mg-potassium clavulanate 125 mg tablet 1 tab PO BID antibiotoc 7 days #14 tabs 12/11/23 [Rx Last Taken Unknown] amlodipine 5 mg tablet 5 mg PO DAILY bp 12/12/23 [History Last Taken Unknown] dorzolamide 22.3 mg-timolol 6.8 mg/mL eye drops 1 drp ophthalmic (eye) BID glaucoma 12/12/23 [History Last Taken Unknown] latanoprostene bunod 0.024 % eye drops (Vyzulta) 1 drp EACH EYE QHS glaucoma 12/12/23 [History Last Taken Unknown] multivitamin with minerals-folic acid 80 mcg chewable tablet (Centrum Adult 50 Plus) 1 tab PO DAILY supplement 12/12/23 [History Last Taken Unknown] vitamins A,C,Q-dtaa-edccvb 4,296 mcg-226 mg-90 mg capsule (Healthy Eyes SuperVision) 1 cap PO DAILY eye health 12/12/23 [History Last Taken Unknown] Allergy/AdvReac Type Severity Reaction Status Date / Time bee venom protein (honey bee) Allergy Swelling Verified 12/12/23 16:58 bacitracin AdvReac Rash Verified 12/12/23 16:58 [From Neosporin ([id number])] neomycin AdvReac Rash Verified 12/12/23 16:58 [From Neosporin ([id number])] Penicillins AdvReac Hives Verified 12/12/23 16:58 polymyxin B AdvReac Rash Verified 12/12/23 16:58 [From Neosporin ([id number])] Family History Aunt Breast cancer Colon cancer Brother Diabetes Surgical History S/P colectomy (~1995) S/P colonoscopy (~2017) Social History (Updated 07/01/20 @ 15:[address] Yadiel Engel MD) Smoking Status: Never smoker alcohol intake: current alcohol intake frequency: 0-2 drinks per day ROS Constitutional Constitutional: Denies chills, fatigue, fever(s) or malaise Eyes Eyes: Denies blurry vision ENT HEENT: Denies headache(s) or nasal discharge Cardiovascular Cardiovascular: Denies chest pain, dyspnea on exertion or syncope Respiratory/Chest Respiratory/Chest: Denies cough, shortness of breath at rest or shortness of breath with exertion Gastrointestinal Gastrointestinal: Reports abdominal pain, diarrhea and nausea; Denies constipation or vomiting Genitourinary Genitourinary: Denies dysuria Neurologic Neurologic: Denies focal weakness, numbness or tremor(s) Psychiatric Psychiatric: Denies anxiety or depression Vital Signs Vital Signs Vital Signs: 12/12/23 16:59 12/12/23 18:59 Temperature 97.2 F L Temperature Source Temporal Pulse Rate 109 H Respiratory Rate 18 16 Blood Pressure 125/81 H Blood Pressure Mean 95 Pulse Ox 94 Oxygen Delivery Method Room Air Weight Weight: 131 lb 12.8 oz Body Mass Index (BMI) 24.0 Physical Exam Narrative General: Alert, Oriented x3, Cooperative, No apparent distress HEENT: Atraumatic, PERRLA, EOMI, Normocephalic Oral: Moist Mucosa Neck: Supple, No JVD Lungs: Diminished, Normal air movement, No rhonchi, No wheeze, No rales Cardiovascular: Regular rate, Regular Rhythm, Normal S1, Normal S2, No murmurs Abdomen: Soft, mild lower quadrant tenderness, Non-Distended, No Hepato-splenomegaly Extremities: No edema, Capillary Refill Less than 3 Seconds Skin: No rashes, No breakdown Musculoskeletal: No Tenderness to Palpation of Joints or Extremities Neurological: No focal neurological deficits, Motor Exam 5/5 strength throughout, Sensory exam intact to light touch and pain Psych/Mental Status: Normal Affect, Appropriate Results Lab / Micro Data 12/13/23 05:56 12/12/23 18:20 Labs: Laboratory Results - last 24 hr 12/12/23 18:20: WBC 11.2 H, RBC 4.41, Hgb 14.1, Hct 41.5, MCV 94.1, MCH 32.0, MCHC 34.0, RDW Std Deviation 45.1 H, RDW Coeff of Lea 13.1, Plt Count 221, MPV 8.9, Immature Gran % (Auto) 0.300, Neut % (Auto) 83.2 H, Lymph % (Auto) 5.0 L, [place] % (Auto) 11.1 H, Eos % (Auto) 0.1, Baso % (Auto) 0.3, Absolute Neuts (auto) 9.4 H, Absolute Lymphs (auto) 0.56 L, Nucleated RBC % 0, Differential Comment SEE COMMENT, Platelet Estimate ADEQUATE, RBC Morphology N CHROM, Anisocytosis RARE, Macrocytosis RARE, Sodium 137, Potassium 3.1 L, Chloride 106, Carbon Dioxide 22.0, Anion Gap 9, BUN 13, Creatinine 0.49 L, Estim Creat Clear Calc 39.18, Est GFR (MDRD) Af Amer 154, Est GFR (MDRD) Non-Af 127, BUN/Creatinine Ratio 26.6 H, Glucose 159 H, Calcium 7.2 L Assessment & Plan Assessment/Plan (1) Colitis: PLAN: Plan 1. Acute diverticulitis with possible cystitis ? Unfortunately culture data was not obtained yesterday and she has been on antibiotics ? Continue with Cipro and Flagyl ? IV fluids ? Will keep her on a regular diet, CT scan yesterday of her abdomen showed mild inflammation ? Given her age will limit narcotic usage 2. Essential HTN ? Stable ? Continue with her home Norvasc ? Will monitor make adjustments as necessary 3. Hypothyroidism ? Stable ? Continue Synthroid 4. GERD ? Stable ? Continue with PPI 5. Glaucoma ? Stable ?Continue with her eyedrops DVT: Lovenox 76 minutes was spent on direct patient care, including documentation as well as chart review and collaboration with colleagues Charges/Coding Visit Charges Inpatient E&M: 50965 Init Hosp L3
[2023-12-12 20:33] VITALS: BMI 24.2
[2023-12-12 20:49] VITALS: BP 120/76; PULSE 94; RESP 18; TEMP 36.9; O2SAT 95
[2023-12-12] MEDS: 0.9% Normal Saline (1000mL) 1,000 ML 100 ML IV (20:53)
[2023-12-12] MEDS: metroNIDAZOLE 500 MG/100 ML BAG 100 MG IV (21:23)
[2023-12-12] MEDS: LATANOPROSTENE BUNOD 0.024% 1 DRP OPHTHALMIC (21:27)
[2023-12-12] MEDS: Dorzolamide HCL/Timolol 10 ml Bottle 1 DRP EACH EYE (21:28)
[2023-12-12] MEDS: Ciprofloxacin 400 MG/200 ML BAG 200 MG IV (22:33)
[2023-12-13 02:49] VITALS: BP 130/76; PULSE 83; RESP 18; TEMP 36.3; O2SAT 95
[2023-12-13] MEDS: oxyCODONE 5 MG Tablet PO (04:02)
[2023-12-13] MEDS: metroNIDAZOLE 500 MG/100 ML BAG 100 MG IV ×3 (06:07→21:49)
[2023-12-13] MEDS: Levothyroxine 25 MCG TABLET PO (06:07)
[2023-12-13 06:43] LABS: Absolute Lymphocyte Count 0.87 X10^3/uL (0.83-4.51); Absolute Neutrophil Count 7.4 X10^3/uL (2.0-7.7); Basophil# 0.03 X10^3/uL; Basophil% 0.3 % (0-1); Eosinophil# 0.07 X10^3/uL; Eosinophils% 0.7 % (0-5); Hematocrit 38.5 % (37-47); Hemoglobin 12.7 g/dL (12.0-15.0); Lymphocyte # 0.87 X10^3/ul (0.83-4.51); Lymphocyte % 8.9 % (19-41); Mean Corpuscular Hgb 31.6 pg (27.0-32.0); Mean Corpuscular Volume 95.8 fL (81-99); Monocyte# 1.39 X10^3/uL; Monocyte% 14.2 % (0-10); NRBC Flagged by Analyzer 0 % (0-5); Neutrophil % 75.7 % (47-70); Platelet Count 225 K/mm3 (150-450); RBC Distribution Width CV 13.2 % (11.6-14.6); RBC Distribution Width SD 47.1 fl (35.1-43.9); Red Blood Count 4.02 M/mm3 (4.2-5.4); White Blood Count 9.8 K/mm3 (4.4-11.0)
[2023-12-13 07:20] LABS: Anion Gap 5 (5-15); BUN 11 mg/dL (7-18); BUN/Creat Ratio 26.4 RATIO (10-20); Calcium,Total 6.7 mg/dL (8.5-10.1); Chloride 111 mmol/L (98-107); Creatinine, Serum 0.42 mg/dL (0.55-1.02); EST Glomerular Filtration Rate 153 mL/min (>60); Est Glom Filt Rate - Afr Amer 185 mL/min (>60); Estimated Creatinine Clearance 39.18 ml/min; Glucose 128 mg/dL (74-106); Potassium 3.2 mmol/L (3.5-5.1); Sodium Level 138 mmol/L (136-145)
--- NOTE | 2023-12-13 07:59 | PN.HOSP_ITS ---
Reason for Visit Reason for Visit: Diagnoses Noninfective gastroenteritis and colitis, unspecified (12/12/23) Objective Data Objective Data Vital Signs: Vital Signs Temp Pulse Resp BP Pulse Ox O2 Del Method 97.3 F L 83 18 130/76 H 95 Room Air 12/13/23 02:49 12/13/23 02:49 12/13/23 02:49 12/13/23 02:49 12/13/23 02:49 12/13/23 02:49 Oxygen Delivery Method Room Air Weight: 132 lb 4.438 oz Body Mass Index (BMI) 24.2 Intake & Output: Intake and Output for Last 24 Hours 12/11/23 12/12/23 12/13/23 23:59 23:59 23:59 Intake Total 1300 / 1400 450 / 450 Balance 1300 / 1400 450 / 450 Lab / Micro Data 12/13/23 05:56 12/13/23 05:56 Labs: Laboratory Results - last 24 hr 12/12/23 18:20: WBC 11.2 H, RBC 4.41, Hgb 14.1, Hct 41.5, MCV 94.1, MCH 32.0, MCHC 34.0, RDW Std Deviation 45.1 H, RDW Coeff of Lea 13.1, Plt Count 221, MPV 8.9, Immature Gran % (Auto) 0.300, Neut % (Auto) 83.2 H, Lymph % (Auto) 5.0 L, [place] % (Auto) 11.1 H, Eos % (Auto) 0.1, Baso % (Auto) 0.3, Absolute Neuts (auto) 9.4 H, Absolute Lymphs (auto) 0.56 L, Nucleated RBC % 0, Differential Comment SEE COMMENT, Platelet Estimate ADEQUATE, RBC Morphology N CHROM, Anisocytosis RARE, Macrocytosis RARE, Sodium 137, Potassium 3.1 L, Chloride 106, Carbon Dioxide 22.0, Anion Gap 9, BUN 13, Creatinine 0.49 L, Estim Creat Clear Calc 39.18, Est GFR (MDRD) Af Amer 154, Est GFR (MDRD) Non-Af 127, BUN/Creatinine Ratio 26.6 H, Glucose 159 H, Calcium 7.2 L 12/13/23 05:56: WBC 9.8, RBC 4.02 L, Hgb 12.7, Hct 38.5, MCV 95.8, MCH 31.6, MCHC 33.0, RDW Std Deviation 47.1 H, RDW Coeff of Lea 13.2, Plt Count 225, MPV 9.0, Immature Gran % (Auto) 0.200, Neut % (Auto) 75.7 H, Lymph % (Auto) 8.9 L, [place] % (Auto) 14.2 H, Eos % (Auto) 0.7, Baso % (Auto) 0.3, Absolute Neuts (auto) 7.4, Absolute Lymphs (auto) 0.87, Nucleated RBC % 0, Sodium 138, Potassium 3.2 L , Chloride 111 H, Carbon Dioxide 22.0, Anion Gap 5, BUN 11, Creatinine 0.42 L, E stim Creat Clear Calc 39.18, Est GFR (MDRD) Af Amer 185, Est GFR (MDRD) Non-Af 153, BUN/Creatinine Ratio 26.4 H, Glucose 128 H, Calcium 6.7 L Physical Exam Narrative Seen and examined. Patient has mild pain over left lower quadrant. She states that she has heart murmur but denies history of A-fib Physical exam General: Alert, Oriented x3, Cooperative HEENT: Atraumatic, PERRLA, EOMI, Normocephalic Oral: No Gingival or Mucosal Lesions/ Ulcerations Neck: Supple, No JVD, Negative Carotid Bruits Chest wall/Lungs: Air entry diminished in bilateral lung bases. No crepitation/rhonchi Cardiovascular: Regular rate, Regular Rhythm, Normal S1, Normal S2, systolic murmur over LLSB. Abdomen: Bowel Sounds sluggish. Tenderness present over left lower quadrant. No significant distention. : No dysuria. No renal angle tenderness. No suprapubic tenderness. Extremities: No significant leg edema, Capillary Refill Less than 3 Seconds Skin: No rashes, No breakdown Musculoskeletal: No Tenderness to Palpation of Joints or Extremities Neurological: Cranial nerves II-XII grossly intact, DTR 2+/4. No acute focal neurological deficit. Psych/Mental Status: Flat affect. Assessment & Plan Assessment/Plan (1) Colitis: PLAN: Plan 80-year-old female was admitted with 5 days history of left lower quadrant abdominal pain and diarrhea. On 12/10: CT scan showed features of colitis 1. Acute segmental colitis involving sigmoid and descending colon with severe constipation and mild colonic ileus: Patient was evaluated in ED 1 day prior to admission and had CT scan abdomen/pelvis showed colitis and possible UTI therefore sent home on Augmentin. CT abdomen individually reviewed and showed significant fecal load and mild colonic ileus due to sigmoid colitis and right- sided fecal load. Inadequate oral intake with weakness and dehydration. No nausea or vomiting ? Continue with Cipro and Flagyl. Continue IV fluid. Abdominal pain secondary to colitis. Mild hypokalemia. Continue to replace potassium 2. Essential HTN ? Continue with her home Norvasc ? Will monitor make adjustments as necessary 3. Hypothyroidism ? Continue Synthroid 4. GERD ? Continue with PPI 5. Glaucoma ?Continue with her eyedrops DVT: Lovenox Charges/Coding Visit Charges Inpatient E&M: 85090 Subs Hosp L2
[2023-12-13 09:18] VITALS: BP 111/71; PULSE 81; RESP 18; TEMP 36.6; O2SAT 94
--- NOTE | 2023-12-13 09:27 | CON.PCM.SX_ITS ---
Assessment & Plan Assessment/Plan (1) Dehydration: PLAN: The patient has been ill not taking in adequate oral amounts. Rather than a regular diet have encouraged her to change to clear liquids which she may be able to tolerate better. On CT imaging she has a significant fecal load and likely has a degree of large bowel obstruction due to her sigmoid colitis. I am not recommending advancing of her diet at this time. (2) Diarrhea: QUALIFIERS: Diarrhea type: presumed infectious Qualified Code(s): R19.7 - Diarrhea, unspecified PLAN: Etiology of the patient's diarrhea unclear. She is somewhat associates this with salad and raw vegetables of the certainly could be a foodborne infectious colitis. Does not particularly have the appearance of diverticulitis. She has had a fairly recent colonoscopy so I have a lesser degree suspicion of recurrent malignancy. Would recommend ongoing conservative management. (3) Colitis: PLAN: As above anticipate likely infectious colitis. Does not appear to be diverticulitis per se. Of course cannot exclude ischemic colitis. I am not recommending operative inspection or colonoscopy at this setting while awaiting patient's continued progress. (4) Personal history of colon cancer: PLAN: Colonoscopy February 11, 2021 clear of active disease. Lower risk of recurrent malignancy at this time. (5) Abdominal pain: QUALIFIERS: Abdominal location: lower abdomen, unspecified Qualified Code(s): R10.30 - Lower abdominal pain, unspecified PLAN: Abdominal pain likely secondary to the colitis as well as degree of coloni c obstruction and right-sided constipation. This may be aggravated by hypokalemia and recommend replacement. (6) Hypokalemia: PLAN: Patient appears to have been chronically hypokalemic looking at previous laboratory. I do recommend replacement PLAN: Plan Patient will be dropped back to clear liquids and have her potassium replaced. I have encouraged mobilization. She is currently on ciprofloxacin and Flagyl. Approximately 6 weeks prior she had oral antibiotics for dental work. Not clear as to whether this possibly could represent C. difficile colitis though seizure certainly does not appear to be severely ill but her imaging is quite pertinent. Stool and/or urine for analysis might be helpful although may be muted by the current antibiotic therapy. Will continue to follow with you. I do not believe that there is a role for urgent endoscopy at this moment. On my CT inspection she had quite a distended urinary bladder at that time. It is unclear as to whether she currently has an active urinary tract infection. I recommend that we pursue a postvoid residual bladder ultrasound to inspect as to whether she has retention. If she does then I would at least recommend a straight cath possible for sample as well as decompression. I appreciate the opportunity of assisting with the surgical care Yadiel Engel M.D., F.A.C.S. HPI Consult Data Date of Consult: 12/13/23 HPI Narrative Reason for Consultation: Abdominal pain and colitis HPI Narrative: ROSCOE COHEN, is a 87 F who presents to the hospital with approximate 5-day h istory of illness. I have been asked to see the patient by the patient to Dr. Chavis and a written copy my surgical consult will be present in the charting. Approximately 6 days ago now patient developed left lower quadrant abdominal pain and initially a mucousy stool followed by a liquidy brown diarrhea. She did not have any diarrhea. There is no nausea or vomiting. On December 10 she presented to the [facility] emergency room. Her her urine study was abnormal but this was felt possibly secondary to contaminant. Stool sample was requested but was not able to be collected. Her white blood cell count was 12.6 with 79% neutrophils. Potassium was low at 3.4. A CT scan was obtained without oral contrast suspicious for infectious or inflammatory colitis of the sigmoid colon. The patient was discharged on Augmentin. She failed to improve continue to have abdominal pain and diarrhea and she re-presented to the emergency room on December 11.She clearly knew that she was unwell and did not feel comfortable for discharge. Her white blood cell count was 11.2. Her potassium was only 3.1.This morning I was contacted and asked to consult on her. I assisted her remotely 30 years ago without a open aggressive low anterior resection with a section out to bilateral ureters. She had a and an colorectal anastomosis to the mid rectum. She does have a history of diverticular disease as well. She has never had any evidence of recurrence. She notes that when she is stressed she will have diarrhea. A couple days prior to this event she had had some salad and raw vegetables and she is not sure whether that could have aggravated her current situation. She lives in assisted living and they prepare her food. Of note that May 16, 2013 she had had a colonoscopy with random colonic biopsies showing colonic mucosa with focal eosinophilic mediated crypt injury that was nonspecific. It was felt to be possibly medication or food allergy induced. She also has a known history of some mild reflux esophagitis and a hiatal hernia. Her most recent upper and lower endoscopy I assisted with February 11, 2021. That colonoscopy showed prior and an [place] rectal anastomosis of the distal sigmoid healthy-appearing mucosa. Multiple diverticula was seen in the sigmoid colon. Diffuse area of mildly erythematous mucosa found in the sigmoid was biopsied but on pathology recess felt to ramble present some blunt trauma. There were no eosinophils at that time On this occasion she states that she had root canal surgery approximately 6 weeks prior and was on a 1 week course of oral penicillin antibiotic at that time. She did not have any difficulty however up until 6 days ago. She does have chronic constipation. She takes routine Metamucil. She takes intermittent Colace. She also notes that sometimes she has difficulty completing voiding and has to stand and sit to help complete some urination. On my personal review of her current CT imaging which again is contrasted there appears to be diffuse wall thickening of the sigmoid colon. There is a significant amount of retained stool particularly on the right. The urinary bladder at the time of her imaging was quite distended [facility] Medical History (Updated 12/13/23 @ 09:[address] Yadiel Engel MD) Abdominal pain Alcohol use Cancer Colon cancer Gastric reflux History of diverticulitis Hypothyroid Non-smoker Personal history of colon cancer Thyroid disease Wears glasses Wears hearing aid Home Medications Levothyroxine Sodium 25 mcg PO DAILY thyroid 06/17/18 [History Last Taken Unknown] omeprazole 20 mg capsule,delayed release 20 mg PO DAILY reflux 02/07/21 [History Last Taken Unknown] psyllium 1 packet PO DAILY PRN constipation 02/07/21 [History Last Taken Unknown] amoxicillin 875 mg-potassium clavulanate 125 mg tablet 1 tab PO BID antibiotoc 7 days #14 tabs 12/11/23 [Rx Last Taken Unknown] amlodipine 5 mg tablet 5 mg PO DAILY bp 12/12/23 [History Last Taken Unknown] dorzolamide 22.3 mg-timolol 6.8 mg/mL eye drops 1 drp ophthalmic (eye) BID glaucoma 12/12/23 [History Last Taken Unknown] latanoprostene bunod 0.024 % eye drops (Vyzulta) 1 drp EACH EYE QHS glaucoma 12/12/23 [History Last Taken Unknown] multivitamin with minerals-folic acid 80 mcg chewable tablet (Centrum Adult 50 Plus) 1 tab PO DAILY supplement 12/12/23 [History Last Taken Unknown] vitamins A,C,P-jbty-qynvng 4,296 mcg-226 mg-90 mg capsule (Healthy Eyes SuperVision) 1 cap PO DAILY eye health 12/12/23 [History Last Taken Unknown] Allergy/AdvReac Type Severity Reaction Status Date / Time bee venom protein (honey bee) Allergy Swelling Verified 12/12/23 16:58 bacitracin AdvReac Rash Verified 12/12/23 16:58 [From Neosporin ([id number])] neomycin AdvReac Rash Verified 12/12/23 16:58 [From Neosporin ([id number])] Penicillins AdvReac Hives Verified 12/12/23 16:58 polymyxin B AdvReac Rash Verified 12/12/23 16:58 [From Neosporin ([id number])] Family History Aunt Breast cancer Colon cancer Brother Diabetes Surgical History S/P colectomy (~1995) S/P colonoscopy (~2017) Social History (Updated 07/01/20 @ 15:[address] Yadiel Engel MD) Smoking Status: Never smoker alcohol intake: current alcohol intake frequency: 0-2 drinks per day ROS Constitutional Constitutional: Denies chills or fever(s) Eyes Eyes: Reports systems reviewed and no addt'l complaints, except as documented ENT HEENT: Reports systems reviewed and no addt'l complaints, except as documented Respiratory/Chest Respiratory/Chest: Reports systems reviewed and no addt'l complaints, except as documented Gastrointestinal Gastrointestinal: Reports bloating, diarrhea and other Details: Left lower quadrant abdominal pain, mucousy brown diarrhea ; Denies rectal bleeding or vomiting Genitourinary Genitourinary: Reports other Details: Intermittent episodes of urinary hesitancy. No current dysuria Integumentary Integumentary: Reports systems reviewed and no addt'l complaints, except as documented Neurologic Neurologic: Reports systems reviewed and no addt'l complaints, except as documented Psychiatric Psychiatric: Reports systems reviewed and no addt'l complaints, except as documented Physical Exam Const alert, oriented x3, no apparent distress and healthy appearing General Appearance: cooperative HEENT normocephalic Eyes PERRL Neck full ROM Resp normal respiratory effort Effort and Inspection: able to speak in complete sentences Cardio Rate: regular rate Rhythm: regular rhythm GI Inspection: abdominal distention Auscultation: hypoactive bowel sounds Palpation: tender LLQ Extremity normal to inspection General Extremity: normal exam except as noted Skin no rashes or lesions noted Neuro Speech: speech normal Psych Appearance: grossly normal Lab / Micro Data 12/13/23 05:56 12/13/23 05:56 Labs: Laboratory Results - last 24 hr 12/12/23 18:20: WBC 11.2 H, RBC 4.41, Hgb 14.1, Hct 41.5, MCV 94.1, MCH 32.0, MCHC 34.0, RDW Std Deviation 45.1 H, RDW Coeff of Lea 13.1, Plt Count 221, MPV 8.9, Immature Gran % (Auto) 0.300, Neut % (Auto) 83.2 H, Lymph % (Auto) 5.0 L, [place] % (Auto) 11.1 H, Eos % (Auto) 0.1, Baso % (Auto) 0.3, Absolute Neuts (auto) 9.4 H, Absolute Lymphs (auto) 0.56 L, Nucleated RBC % 0, Differential Comment SEE COMMENT, Platelet Estimate ADEQUATE, RBC Morphology N CHROM, Anisocytosis RARE, Macrocytosis RARE, Sodium 137, Potassium 3.1 L, Chloride 106, Carbon Dioxide 22.0, Anion Gap 9, BUN 13, Creatinine 0.49 L, Estim Creat Clear Calc 39.18, Est GFR (MDRD) Af Amer 154, Est GFR (MDRD) Non-Af 127, BUN/Creatinine Ratio 26.6 H, Glucose 159 H, Calcium 7.2 L 12/13/23 05:56: WBC 9.8, RBC 4.02 L, Hgb 12.7, Hct 38.5, MCV 95.8, MCH 31.6, MCHC 33.0, RDW Std Deviation 47.1 H, RDW Coeff of Lea 13.2, Plt Count 225, MPV 9.0, Immature Gran % (Auto) 0.200, Neut % (Auto) 75.7 H, Lymph % (Auto) 8.9 L, [place] % (Auto) 14.2 H, Eos % (Auto) 0.7, Baso % (Auto) 0.3, Absolute Neuts (auto) 7.4, Absolute Lymphs (auto) 0.87, Nucleated RBC % 0, Sodium 138, Potassium 3.2 L , Chloride 111 H, Carbon Dioxide 22.0, Anion Gap 5, BUN 11, Creatinine 0.42 L, Estim Creat Clear Calc 39.18, Est GFR (MDRD) Af Amer 185, Est GFR (MDRD) Non-Af 153, BUN/Creatinine Ratio 26.4 H, Glucose 128 H, Calcium 6.7 L
[2023-12-13] MEDS: Ciprofloxacin 400 MG/200 ML BAG 200 MG IV (09:30)
[2023-12-13] MEDS: 0.9% Normal Saline (1000mL) 1,000 ML 100 ML IV ×2 (09:30→21:50)
[2023-12-13] MEDS: Enoxaparin 40 MG/0.4 ML Syringe SC (09:31)
[2023-12-13] MEDS: Pantoprazole Sodium 20 MG Tablet PO (09:31)
[2023-12-13] MEDS: Potassium Chloride Oral Tablet 20 MEQ 60 MEQ PO ×2 (09:31→10:44)
[2023-12-13] MEDS: amLODIPine 5 MG Tablet PO (09:31)
[2023-12-13] MEDS: Dorzolamide HCL/Timolol 10 ml Bottle 1 DRP EACH EYE ×2 (09:32→21:50)
--- NOTE | 2023-12-13 12:35 | NURSING ---
pt voided for urine specimen but also inhat her urine hat which also had liquid stool in it as well.
--- NOTE | 2023-12-13 12:43 | CASEMGMT ---
KELLY FAN Assessment Face to Face with patient for initial transition planning/care coordination assessment. KELLY FAN introduced self and role at [facility], pt voices understanding. Pt is A&Ox4 and is resting comfortably in bed and is calm. Care providers, pharmacy, and demographics verified. Admitting dx: Diverticulitis PCP: Itzel Merritt Specialists: Maren Preferred Pharmacy: [facility] Insurance: [facility] A/B, [employer] [place] Prescription Benefit: Yes LNOK: Nayeli Mallory (Friend), Aiyana Ingram (Sister) Living Arrangements: Pt lives alone in an apartment at an independent [facility]. Pt states her apartment has a flat entrance ADLs/IADLs: Pt states that there is a government relations manager and all meals are provided. Pt states that she is ind otherwise. Transportation: Self, sister will be ride home DME: [employer]. Walk in shower with GB and chair. Raised toilet seat with GB. Pt states that she has access to whatever DME that she might need at the facility. HHC/SNF: Pt states that skilled faculty is available if needed at the [facility]. Pt denies SNF history. Pt?s goal: Return to [facility] once medically ready, Plan: 6-Click is 20. Pt refuses the need for HHC or SNF placement at this time. Pt wishes to return to [facility] once medically ready and states feeling safe doing so. CM to follow for safe DC from [facility]. Harrison Pelletier RN, CM
[2023-12-13 12:56] LABS: Bacteria 0 SEEN /hpf (None Seen); Mucous, Urine 0 SEEN /hpf (<or=2+); Red Blood Cells-Urine 0 SEEN /hpf (0-5)
[2023-12-13 13:22] LABS: Color, Urine Yellow (Yellow); Glucose, Dipstick 100 mg/dl (Normal); Leukocyte Esterase-Dipstick 25 /ul (Negative); Nitrite-Dipstick Negative (Negative); Occult Blood-Urine Negative /ul (Negative); Protein-Dipstick 30 mg/dl (Negative); Urine Clarity Clear (Clear); Urine Urobilinogen 1 mg/dl (Normal)
[2023-12-13 13:42] LABS: Ketone-Dipstick 150 mg/dl (Negative); Urine Bilirubin Dipstick 1 mg/dL (Negative)
[2023-12-13 13:50] LABS: Squamous Epithelial Cells - UA 0-5 SEEN /hpf (5-10); White Blood Cells 10-25 SEEN /hpf (0-5)
[2023-12-13 15:24] VITALS: BP 109/63; PULSE 78; RESP 18; TEMP 36.7; O2SAT 97
[2023-12-13] MEDS: Vancomycin 125 MG/5 ML Susp PO.SYRINGE PO ×2 (15:32→17:17)
[2023-12-13] MEDS: Bisacodyl 5 MG Tablet 10 MG PO (15:32)
[2023-12-13] MEDS: Senna/Docusate Sodium 1 Tablet 2 TABLET PO (15:32)
[2023-12-13] MEDS: Tamsulosin HCl 0.4 MG Capsule PO (17:17)
[2023-12-13 21:30] VITALS: BP 104/60; PULSE 72; RESP 18; TEMP 36.4; O2SAT 98
[2023-12-13] MEDS: LATANOPROSTENE BUNOD 0.024% 1 DRP OPHTHALMIC (21:51)
[2023-12-14] MEDS: Vancomycin 125 MG/5 ML Susp PO.SYRINGE PO ×5 (00:55→23:26)
[2023-12-14 03:30] VITALS: BP 118/62; PULSE 82; RESP 18; TEMP 36.5; O2SAT 97
[2023-12-14] MEDS: metroNIDAZOLE 500 MG/100 ML BAG 100 MG IV ×3 (05:08→21:00)
[2023-12-14] MEDS: Levothyroxine 25 MCG TABLET PO (05:08)
--- NOTE | 2023-12-14 06:55 | PCM.PN.SRG ---
Subjective Subjective The patient is feeling better. Still has some left lower quadrant abdominal pain but is improved. Still feeling somewhat bloated. No nausea. Patient did have a Pierre catheter placed early this morning. Yesterday she had a 430 cc urinary residual. She has been initiated on Flomax therapy. Stool analysis was positive for C. difficile The patient states that she lives in a cottage by herself. She does go to a communal restaurant like area for meals. As noted she did have oral antibiotics for dental work approximately 5 to 6 weeks prior. She has not had a previous episode of C. difficile colitis. Chronic hypokalemia is being replaced Objective Data Objective Data Vital Signs: Vital Signs Temp Pulse Resp BP Pulse Ox O2 Del Method 97.7 F L 82 18 118/62 97 Room Air 12/14/23 03:30 12/14/23 03:30 12/14/23 03:30 12/14/23 03:30 12/14/23 03:30 12/14/23 03:30 Oxygen Delivery Method Room Air Weight: 132 lb 4.438 oz Body Mass Index (BMI) 24.2 Intake & Output: Intake and Output for Last 24 Hours 12/12/23 12/13/23 12/14/23 23:59 23:59 23:59 Intake Total 1300 / 1400 3100.00 / 3100.00 300 / 300 Output Total 475 / 475 350 / 350 Balance 1300 / 1400 2625.00 / 2625.00 -50 / -50 Lab / Micro Data 12/13/23 05:56 12/13/23 05:56 Labs: Laboratory Results - last 24 hr 12/13/23 05:56: Sodium 138, Potassium 3.2 L, Chloride 111 H, Carbon Dioxide 22.0, Anion Gap 5, BUN 11, Creatinine 0.42 L, Estim Creat Clear Calc 39.18, Est GFR (MDRD) Af Amer 185, Est GFR (MDRD) Non-Af 153, BUN/Creatinine Ratio 26.4 H, Glucose 128 H, Calcium 6.7 L 12/13/23 12:25: Urine Color Yellow, Urine Clarity Clear, Urine pH 5.0, Ur Specific [place] 1.020, Urine Protein 30 H, Urine Glucose (UA) 100 H, Urine Ketones 150 A*, Urine Occult Blood Negative, Urine Nitrite Negative, Urine Bilirubin 1 H, Urine Urobilinogen 1 H, Ur Leukocyte Esterase 25 H, Urine RBC 0 SEEN, Urine WBC 10-25 SEEN, Ur Squamous Epith Cells 0-5 SEEN, Urine Bacteria 0 SEEN, Urine Mucus 0 SEEN Micro: Microbiology 12/13/23 11:35 Stool Stool Lactoferrin - Final 12/13/23 11:35 Stool C. difficile GDH Antigen & Toxins - Final Toxigenic C. difficile 12/13/23 11:35 Stool Clostridioides difficile (PCR) - Final 12/13/23 11:35 Stool Stool Occult Blood (BRIAN) - Final Occult Blood Positive Physical Exam Const oriented x3 and no apparent distress Resp normal respiratory effort and clear to auscultation bilaterally Cardio regular rate GI GI Narrative: Soft, mildly distended, mild persistent tenderness left lower quadrant to deeper palpation. Bowel sounds present. Well-healed infraumbilical midline incision Narrative: Pierre catheter in position, Assessment & Plan Assessment/Plan (1) C. difficile colitis: (2) Urinary retention with incomplete bladder emptying: (3) Hypokalemia: PLAN: Plan Patient with C. difficile colitis possibly associated with her oral antibiotic therapy for her dental root canal or possible contaminant from her living situation although she [place] [facility] [place]. No previous episodes. The patient is currently being treated with oral vancomycin and IV metronidazole. Clinically she is demonstrating improvement. She has been on clear liquids when we will advance to a full liquid diet. Hypokalemia is being replaced. Based upon her laboratory I suspect a more chronic nature. She may require more chronic treatment. Urinary retention without placement of a Pierre catheter and initiation of tamsulosin yesterday. It is likely that the acute colonic inflammation is contributing in part to her retention symptoms however again she likely has a component of chronic problems. As the Pierre catheter is just been placed it would seem reasonable to leave this in position at least for the next 24 hours with plan for removal tomorrow On imaging the patient had significant moderate fecal load in the right colon and on abdominal examination she still has distention. I am recommending slow advancement of her diet and I have written for full liquids. She will benefit from at least another day of hospital care. As noted before fortunately she does not appear that she will require surgical intervention. I appreciate the opportunity of assisting with her surgical care Yadiel Engel M.D., F.A.C.S.
[2023-12-14 08:07] LABS: Anion Gap 6 (5-15); BUN 7 mg/dL (7-18); BUN/Creat Ratio 18.6 RATIO (10-20); Calcium,Total 6.5 mg/dL (8.5-10.1); Chloride 109 mmol/L (98-107); Creatinine, Serum 0.38 mg/dL (0.55-1.02); EST Glomerular Filtration Rate 172 mL/min (>60); Est Glom Filt Rate - Afr Amer 208 mL/min (>60); Estimated Creatinine Clearance 38.44 ml/min; Glucose 110 mg/dL (74-106); Magnesium 2.1 mg/dL (1.6-2.6); Phosphorus 0.5 mg/dL (2.5-4.9); Sodium Level 136 mmol/L (136-145)
[2023-12-14 08:11] VITALS: BP 115/62; PULSE 74; RESP 18; TEMP 37; O2SAT 96
[2023-12-14 08:15] LABS: Absolute Lymphocyte Count 1.27 X10^3/uL (0.83-4.51); Absolute Neutrophil Count 6.5 X10^3/uL (2.0-7.7); Basophil# 0.05 X10^3/uL; Basophil% 0.5 % (0-1); Eosinophil# 0.24 X10^3/uL; Eosinophils% 2.6 % (0-5); Hemoglobin 11.9 g/dL (12.0-15.0); Lymphocyte # 1.27 X10^3/ul (0.83-4.51); Lymphocyte % 13.8 % (19-41); Mean Corp Hgb Conc 33.1 g/dL (32-36); Mean Corpuscular Hgb 31.2 pg (27.0-32.0); Mean Corpuscular Volume 94.5 fL (81-99); Mean Platelet Vol. 9.3 fl (6.2-12.0); Monocyte# 1.04 X10^3/uL; Monocyte% 11.3 % (0-10); NRBC Flagged by Analyzer 0 % (0-5); Neutrophil # 6.54 X10^3/uL (2.7-7.7); Neutrophil % 71.4 % (47-70); Platelet Count 227 K/mm3 (150-450); RBC Distribution Width CV 13.2 % (11.6-14.6); RBC Distribution Width SD 45.9 fl (35.1-43.9); Red Blood Count 3.81 M/mm3 (4.2-5.4); White Blood Count 9.2 K/mm3 (4.4-11.0)
[2023-12-14] MEDS: Enoxaparin 40 MG/0.4 ML Syringe SC (08:57)
[2023-12-14] MEDS: Menthol/Lanolin/Calamine/Znox 113 GM Tube 1 APPLIC TOPICAL ×2 (08:57→20:57)
[2023-12-14] MEDS: amLODIPine 5 MG Tablet PO (08:58)
[2023-12-14] MEDS: Pantoprazole Sodium 20 MG Tablet PO (08:58)
[2023-12-14] MEDS: Dorzolamide HCL/Timolol 10 ml Bottle 1 DRP EACH EYE ×2 (09:00→20:56)
[2023-12-14] MEDS: Potassium Phosphate 21 MM in 0.9% Normal Saline (250mL Bag) 250 ML 84 MM IV (09:23)
--- NOTE | 2023-12-14 09:39 | PN.HOSP_ITS ---
Reason for Visit Reason for Visit: Diagnoses Dehydration (12/12/23) Hypokalemia (12/12/23) Noninfective gastroenteritis and colitis, unspecified (12/12/23) Lower abdominal pain, unspecified (12/12/23) Diarrhea, unspecified (12/12/23) Personal history of other malignant neoplasm of large intestine (12/12/23) Objective Data Objective Data Vital Signs: Vital Signs Temp Pulse Resp BP Pulse Ox O2 Del Method 98.6 F 74 18 115/62 96 Room Air 12/14/23 08:11 12/14/23 08:11 12/14/23 08:11 12/14/23 08:11 12/14/23 08:11 12/14/23 08:11 Oxygen Delivery Method Room Air Weight: 132 lb 4.438 oz Body Mass Index (BMI) 24.2 Intake & Output: Intake and Output for Last 24 Hours 12/12/23 12/13/23 12/14/23 23:59 23:59 23:59 Intake Total 1300 / 1400 3100.00 / 3100.00 1300 / 1300 Output Total 475 / 475 350 / 350 Balance 1300 / 1400 2625.00 / 2625.00 950 / 950 Lab / Micro Data 12/14/23 07:00 12/14/23 07:00 Labs: Laboratory Results - last 24 hr 12/13/23 12:25: Urine Color Yellow, Urine Clarity Clear, Urine pH 5.0, Ur Specific [place] 1.020, Urine Protein 30 H, Urine Glucose (UA) 100 H, Urine Ketones 150 A*, Urine Occult Blood Negative, Urine Nitrite Negative, Urine Bilirubin 1 H, Urine Urobilinogen 1 H, Ur Leukocyte Esterase 25 H, Urine RBC 0 SEEN, Urine WBC 10-25 SEEN, Ur Squamous Epith Cells 0-5 SEEN, Urine Bacteria 0 SEEN, Urine Mucus 0 SEEN 12/14/23 07:00: WBC 9.2, RBC 3.81 L, Hgb 11.9 L, Hct 36.0 L, MCV 94.5, MCH 31.2, MCHC 33.1, RDW Std Deviation 45.9 H, RDW Coeff of [place] 13.2, Plt Count 227, MPV 9.3, Immature Gran % (Auto) 0.400, Neut % (Auto) 71.4 H, Lymph % (Auto) 13.8 L, [place] % (Auto) 11.3 H, Eos % (Auto) 2.6, Baso % (Auto) 0.5, Absolute Neuts (auto) 6.5, Absolute Lymphs (auto) 1.27, Nucleated RBC % 0, Sodium 136, Potassium 3.0 L, Chloride 109 H, Carbon Dioxide 21.0, Anion Gap 6, BUN 7, Creatinine 0.38 L, Estim Creat Clear Calc 38.44, Est GFR (MDRD) Af Amer 208, Est GFR (MDRD) Non-Af 172, BUN/Creatinine Ratio 18.6, Glucose 110 H, Calcium 6.5 L*, Phosphorus 0.5 L*, Magnesium 2.1 Micro: Microbiology 12/13/23 11:35 Stool Stool Lactoferrin - Final 12/13/23 11:35 Stool C. difficile GDH Antigen & Toxins - Final Toxigenic C. difficile 12/13/23 11:35 Stool Clostridioides difficile (PCR) - Final 12/13/23 11:35 Stool Stool Occult Blood (BRIAN) - Final Occult Blood Positive Physical Exam Narrative Seen and examined. Sometimes complain of mild pain over left lower quadrant otherwise much improved. Had good bowel movement after Dulcolax oral given yesterday. She states that she has heart murmur but denies history of A-fib Physical exam General: Alert, Oriented x3, Cooperative HEENT: Atraumatic, PERRLA, EOMI, Normocephalic Oral: No Gingival or Mucosal Lesions/ Ulcerations Neck: Supple, No JVD, Negative Carotid Bruits Chest wall/Lungs: Air entry diminished in bilateral lung bases. No crepitation/rhonchi Cardiovascular: Regular rate, Regular Rhythm, Normal S1, Normal S2, systolic murmur over LLSB. Abdomen: Bowel Sounds sluggish. Mild deep tenderness present over left lower quadrant. No significant distention. : No dysuria. No renal angle tenderness. No suprapubic tenderness. Extremities: No significant leg edema, Capillary Refill Less than 3 Seconds Skin: No rashes, No breakdown Musculoskeletal: No Tenderness to Palpation of Joints or Extremities Neurological: Cranial nerves II-XII grossly intact, DTR 2+/4. No acute focal neurological deficit. Psych/Mental Status: Flat affect. Assessment & Plan Assessment/Plan (1) Colitis: PLAN: Plan 80-year-old female was admitted with 5 days history of left lower quadrant abdominal pain and diarrhea. On 12/10: CT scan showed features of colitis 1. Acute segmental colitis involving sigmoid and descending colon with severe constipation and mild colonic ileus: Patient was evaluated in ED 1 day prior to admission and had CT scan abdomen/pelvis showed colitis and possible UTI therefore sent home on Augmentin. CT abdomen individually reviewed and showed significant fecal load and mild colonic ileus due to sigmoid colitis and right- sided fecal load. Inadequate oral intake with weakness and dehydration. No nausea or vomiting ? Continue with Cipro and Flagyl. Continue IV fluid. Abdominal pain secondary to colitis. Mild hypokalemia. Continue to replace potassium 12/13: Electrolyte abnormality. Patient has hypokalemia, hypophosphatemia and hypocalcemia: Electrolyte replacement ordered. Recheck electrolytes tomorrow. Continue vancomycin and IV Flagyl. 2. Essential HTN ? Continue with her home Norvasc ? Will monitor make adjustments as necessary 3. Hypothyroidism ? Continue Synthroid 4. GERD ? Continue with PPI 5. Glaucoma ?Continue with her eyedrops DVT: Lovenox Charges/Coding Visit Charges Inpatient E&M: 56455 Subs Hosp L2
[2023-12-14] MEDS: 0.9% Normal Saline (1000mL) 1,000 ML 100 ML IV (13:52)
[2023-12-14 14:13] VITALS: BP 125/71; PULSE 83; RESP 16; TEMP 37.1
--- NOTE | 2023-12-14 14:42 | NURSING ---
see tele computerized charting for tele strip
[2023-12-14] MEDS: Calcium Gluconate IV 2 GM in 0.9% Normal Saline (100mL Bag) 100 ML IV (15:23)
[2023-12-14] MEDS: Potassium Chloride Oral Tablet 20 MEQ PO (17:25)
[2023-12-14] MEDS: Tamsulosin HCl 0.4 MG Capsule PO (17:25)
[2023-12-14 20:13] VITALS: BP 120/61; PULSE 79; RESP 16; TEMP 36.7; O2SAT 94
[2023-12-14] MEDS: Polyethylene Glycol 3350 17 GM PACKET PO (20:55)
[2023-12-14] MEDS: 0.9% Saline Lock 10 ML Syringe IV (20:58)
[2023-12-14] MEDS: LATANOPROSTENE BUNOD 0.024% 1 DRP OPHTHALMIC (20:58)
[2023-12-15] VITALS (7 sets, daily range): BP systolic 121–133; BP diastolic 69–89; PULSE 76–98; RESP 16–18; TEMP 36.6–36.9; O2SAT 95–97
[2023-12-15] MEDS: Levothyroxine 25 MCG TABLET PO (05:00)
[2023-12-15] MEDS: metroNIDAZOLE 500 MG/100 ML BAG 100 MG IV ×3 (05:00→22:01)
[2023-12-15] MEDS: Vancomycin 125 MG/5 ML Susp PO.SYRINGE PO ×4 (06:29→23:30)
--- NOTE | 2023-12-15 07:04 | PCM.PN.SRG ---
Subjective Subjective Patient still has Pierre catheter in place and finds it is difficult to mobilize on her own with it. She notes some persistent abdominal bloating. She does feel like she is improving. The left lower quadrant pain is now decreased to a tenderness. She is having liquid stools with a degree of incontinence. She has not yet felt capable of getting out of bed and making it to the bathroom to move her bowels. She has been slowly advancing her diet but is on the soft and bland side with notably decreased intake. Her living situation involves her being in a small cottage area and then going to a more communal area for meals. She has not yet been in contact with them and she states that she has not had social service working with her yet here particularly in regards to her C. difficile colitis diagnosis Objective Data Objective Data Vital Signs: Vital Signs Temp Pulse Resp BP Pulse Ox O2 Del Method O2 Flow Rate 98.4 F 76 16 131/89 H 95 Room Air 95 12/15/23 03:00 12/15/23 03:00 12/15/23 03:00 12/15/23 03:00 12/15/23 03:00 12/15/23 03:00 12/14/23 14:13 Oxygen Flow Rate (L/min) 95 Oxygen Delivery Method Room Air Weight: 132 lb 4.438 oz Body Mass Index (BMI) 24.2 Intake & Output: Intake and Output for Last 24 Hours 12/13/23 12/14/23 12/15/23 23:59 23:59 23:59 Intake Total 3100.00 / 3100.00 1888.67 / 1888.67 100 / 100 Output Total 475 / 475 950 / 1450 1100 / 1100 Balance 2625.00 / 2625.00 938.67 / 438.67 -1000 / -1000 Lab / Micro Data 12/14/23 07:00 12/14/23 07:00 Labs: Laboratory Results - last 24 hr 12/14/23 07:00: WBC 9.2, RBC 3.81 L, Hgb 11.9 L, Hct 36.0 L, MCV 94.5, MCH 31.2, MCHC 33.1, RDW Std Deviation 45.9 H, RDW Coeff of [place] 13.2, Plt Count 227, MPV 9.3, Immature Gran % (Auto) 0.400, Neut % (Auto) 71.4 H, Lymph % (Auto) 13.8 L, [place] % (Auto) 11.3 H, Eos % (Auto) 2.6, Baso % (Auto) 0.5, Absolute Neuts (auto) 6.5, Absolute Lymphs (auto) 1.27, Nucleated RBC % 0, Sodium 136, Potassium 3.0 L, Chloride 109 H, Carbon Dioxide 21.0, Anion Gap 6, BUN 7, Creatinine 0.38 L, Estim Creat Clear Calc 38.44, Est GFR (MDRD) Af Amer 208, Est GFR (MDRD) Non-Af 172, BUN/Creatinine Ratio 18.6, Glucose 110 H, Calcium 6.5 L*, Phosphorus 0.5 L*, Magnesium 2.1 Micro: Microbiology 12/13/23 01:12 Stool Enteric Bacteriology - Final 12/13/23 11:35 Stool Stool Lactoferrin - Final 12/13/23 11:35 Stool C. difficile GDH Antigen & Toxins - Final Toxigenic C. difficile 12/13/23 11:35 Stool Clostridioides difficile (PCR) - Final 12/13/23 11:35 Stool Stool Occult Blood (BRIAN) - Final Occult Blood Positive Physical Exam GI GI Narrative: Softly distended, bowel sounds present, minimal left lower quadrant tenderness to deep palpation Assessment & Plan Assessment/Plan (1) C. difficile colitis: (2) Urinary retention with incomplete bladder emptying: (3) Hypokalemia: (4) Diarrhea: QUALIFIERS: Diarrhea type: presumed infectious Qualified Code(s): R19.7 - Diarrhea, unspecified PLAN: Plan The patient has been receiving some senna and MiraLAX. With her diarrhea and compromised sigmoid colon I will discontinue that. She is having troubles with liquidy stools and incontinence. Persistent hypokalemia likely acute on top of the degree of chronic hypokalemia. She is currently on replacement. Repeat laboratory still pending today Decreased appetite but as expected so. I have cautioned her to pick and choose as she tolerates but I am not expecting a rapid advancement yet Ongoing oral antibiotic treatment of her C. difficile colitis clearly pertinent She presented with a suspected urinary tract infection. Hard to know whether this was contaminant. She was then detected as having significant urinary retention. She was placed on Flomax and a Pierre catheter was placed. Will DC the Pierre catheter now and see how she is able to void. Hopefully she will not require ongoing catheterizations at the time of discharge. Will recommend social media content manager see the patient to assist her with discharge planning and location. Will continue to follow. Yadiel Engel M.D., F.A.C.S.
[2023-12-15 08:18] LABS: Anion Gap 4 (5-15); BUN 2 mg/dL (7-18); BUN/Creat Ratio 5.8 RATIO (10-20); Calcium,Total 6.9 mg/dL (8.5-10.1); Chloride 108 mmol/L (98-107); Creatinine, Serum 0.34 mg/dL (0.55-1.02); EST Glomerular Filtration Rate 191 mL/min (>60); Est Glom Filt Rate - Afr Amer 231 mL/min (>60); Estimated Creatinine Clearance 38.44 ml/min; Glucose 124 mg/dL (74-106); Magnesium 2.1 mg/dL (1.6-2.6); Phosphorus 0.7 mg/dL (2.5-4.9); Potassium 2.7 mmol/L (3.5-5.1); Sodium Level 137 mmol/L (136-145)
[2023-12-15] MEDS: Enoxaparin 40 MG/0.4 ML Syringe SC (08:48)
[2023-12-15] MEDS: Potassium Chloride Oral Tablet 20 MEQ PO (08:48)
[2023-12-15] MEDS: Dorzolamide HCL/Timolol 10 ml Bottle 1 DRP EACH EYE ×2 (08:49→22:00)
[2023-12-15] MEDS: amLODIPine 5 MG Tablet PO (08:49)
[2023-12-15] MEDS: Pantoprazole Sodium 20 MG Tablet PO (08:49)
[2023-12-15] MEDS: Menthol/Lanolin/Calamine/Znox 113 GM Tube 1 APPLIC TOPICAL ×2 (08:50→22:00)
--- NOTE | 2023-12-15 10:17 | PCM.PN.HOSP ---
Reason for Visit Reason for Visit: Diagnoses Enterocolitis due to Clostridium difficile, not specified as recurrent (12/12/23) Dehydration (12/12/23) Hypokalemia (12/12/23) Noninfective gastroenteritis and colitis, unspecified (12/12/23) Lower abdominal pain, unspecified (12/12/23) Diarrhea, unspecified (12/12/23) Retention of urine, unspecified (12/12/23) Personal history of other malignant neoplasm of large intestine (12/12/23) Objective Data Objective Data Vital Signs: Vital Signs Temp Pulse Resp BP Pulse Ox O2 Del Method O2 Flow Rate 98.2 F 80 18 130/78 H 95 Room Air 95 12/15/23 08:39 12/15/23 08:39 12/15/23 08:39 12/15/23 08:39 12/15/23 08:39 12/15/23 08:41 12/14/23 14:13 Oxygen Flow Rate (L/min) 95 Oxygen Delivery Method Room Air Weight: 132 lb 4.438 oz Body Mass Index (BMI) 24.2 Intake & Output: Intake and Output for Last 24 Hours 12/13/23 12/14/23 12/15/23 23:59 23:59 23:59 Intake Total 3100.00 / 3100.00 1888.67 / 1888.67 100 / 100 Output Total 475 / 475 950 / 1450 1100 / 1100 Balance 2625.00 / 2625.00 938.67 / 438.67 -1000 / -1000 Lab / Micro Data 12/14/23 07:00 12/15/23 06:45 Labs: Laboratory Results - last 24 hr 12/15/23 06:45: Sodium 137, Potassium 2.7 L*, Chloride 108 H, Carbon Dioxide 25.0, Anion Gap 4 L, BUN 2 L, Creatinine 0.34 L, Estim Creat Clear Calc 38.44, Est GFR (MDRD) Af Amer 231, Est GFR (MDRD) Non-Af 191, BUN/Creatinine Ratio 5.8 L, Glucose 124 H, Calcium 6.9 L, Phosphorus 0.7 L*, Magnesium 2.1 Micro: Microbiology 12/13/23 01:12 Stool Enteric Bacteriology - Final 12/13/23 11:35 Stool Stool Lactoferrin - Final 12/13/23 11:35 Stool C. difficile GDH Antigen & Toxins - Final Toxigenic C. difficile 12/13/23 11:35 Stool Clostridioides difficile (PCR) - Final 12/13/23 11:35 Stool Stool Occult Blood (BRIAN) - Final Occult Blood Positive Physical Exam Narrative Seen and examined. Abdominal pain has resolved. Patient still having 3 bowel movements, consistency improved but still semisolid. On oral diet. She states that she has heart murmur but denies history of A-fib Physical exam General: Alert, Oriented x3, Cooperative HEENT: Atraumatic, PERRLA, EOMI, Normocephalic Oral: No Gingival or Mucosal Lesions/ Ulcerations Neck: Supple, No JVD, Negative Carotid Bruits Chest wall/Lungs: Air entry diminished in bilateral lung bases. No crepitation/rhonchi Cardiovascular: Regular rate, Regular Rhythm, Normal S1, Normal S2, systolic murmur over LLSB. Abdomen: Bowel Sounds sluggish. No tenderness/guarding or rigidity. No significant distention. : No dysuria. No renal angle tenderness. No suprapubic tenderness. Extremities: No significant leg edema, Capillary Refill Less than 3 Seconds Skin: No rashes, No breakdown Musculoskeletal: No Tenderness to Palpation of Joints or Extremities Neurological: Cranial nerves II-XII grossly intact, DTR 2+/4. No acute focal neurological deficit. Psych/Mental Status: Flat affect. Assessment & Plan Assessment/Plan (1) Colitis: PLAN: Plan 80-year-old female was admitted with 5 days history of left lower quadrant abdominal pain and diarrhea. On 12/10: CT scan showed features of colitis 1. Acute segmental colitis involving sigmoid and descending colon with severe constipation and mild colonic ileus: Patient was evaluated in ED 1 day prior to admission and had CT scan abdomen/pelvis showed colitis and possible UTI therefore sent home on Augmentin. CT abdomen individually reviewed and showed significant fecal load and mild colonic ileus due to sigmoid colitis and right-sided fecal load. Inadequate oral intake with weakness and dehydration. No nausea or vomiting ? Continue with Cipro and Flagyl. Continue IV fluid. Abdominal pain secondary to colitis. Mild hypokalemia. Continue to replace potassium 12/13: Electrolyte abnormality. Patient has hypokalemia, hypophosphatemia and hypocalcemia: Electrolyte replacement ordered. Recheck electrolytes tomorrow. Continue vancomycin and IV Flagyl. 12/14: Patient still has severe hypokalemia and hypophosphatemia. Serum potassium 2.7, phosphorus 0.7 even though patient had IV potassium phosphate replacement. IV potassium phosphate ordered. Serum sodium normal. On oral potassium supplement also. 2. Essential HTN ? Continue with her home Norvasc ? Will monitor make adjustments as necessary 3. Hypothyroidism ? Continue Synthroid 4. GERD ? Continue with PPI 5. Glaucoma ?Continue with her eyedrops DVT: Lovenox Charges/Coding Visit Charges Inpatient E&M: 09695 Subs Hosp L2
[2023-12-15] MEDS: Potassium Phosphate 40 MM in 0.9% Normal Saline (500mL Bag) 500 ML 62.5 MM IV (11:06)
[2023-12-15 11:11] LABS: AST(SGOT) 11 U/L (15-37); Alanine Aminotransfer ALT/SGPT 11 U/L (13-56); Albumin, Serum 2.2 g/dL (3.2-5.0); Alkaline Phosphatase 43 U/L (45-117); Bilirubin, Direct 0.18 mg/dL (0.00-0.30); Globulin 2.5 g/dL (2.2-4.2); Protein, Total 4.7 g/dL (6.4-8.2)
[2023-12-15] MEDS: Potassium Chloride Oral Tablet 20 MEQ 40 MEQ PO (17:54)
[2023-12-15] MEDS: Tamsulosin HCl 0.4 MG Capsule PO (18:02)
[2023-12-15] MEDS: LATANOPROSTENE BUNOD 0.024% 1 DRP OPHTHALMIC (22:00)
[2023-12-16 03:21] VITALS: BP 127/80; PULSE 74; RESP 16; TEMP 36.9; O2SAT 97
[2023-12-16] MEDS: metroNIDAZOLE 500 MG/100 ML BAG 100 MG IV (05:27)
[2023-12-16] MEDS: Vancomycin 125 MG/5 ML Susp PO.SYRINGE PO ×2 (05:27→12:17)
[2023-12-16] MEDS: Levothyroxine 25 MCG TABLET PO (05:27)
[2023-12-16 07:23] VITALS: PULSE 75
--- NOTE | 2023-12-16 07:33 | PCM.PN.SRG ---
Subjective Subjective Patient is feeling better however postvoid residual was greater than 300 cc last night. Pierre catheter was replaced. She had been on subcu Lovenox for DVT prophylaxis but due to heme positive stool that was converted to SCUDs but the patient declined them. She is eating a light diet. Still having liquidy stool. Still feeling bloated. No abdominal pain at rest. Objective Data Objective Data Vital Signs: Vital Signs Temp Pulse Resp BP Pulse Ox O2 Del Method O2 Flow Rate 98.4 F 74 16 127/80 H 97 Room Air 95 12/16/23 03:21 12/16/23 03:21 12/16/23 03:21 12/16/23 03:21 12/16/23 03:21 12/16/23 03:36 12/14/23 14:13 Oxygen Flow Rate (L/min) 95 Oxygen Delivery Method Room Air Weight: 132 lb 4.438 oz Body Mass Index (BMI) 24.2 Intake & Output: Intake and Output for Last 24 Hours 12/14/23 12/15/23 12/16/23 23:59 23:59 23:59 Intake Total 1888.67 / 1888.67 2551.6633 / 2551.6633 100 / 100 Output Total 950 / 1450 1850 / 2400 1250 / 1250 Balance 938.67 / 438.67 701.6633 / 151.6633 -1150 / -1150 Lab / Micro Data 12/14/23 07:00 12/15/23 06:45 Labs: Laboratory Results - last 24 hr 12/15/23 06:45: Sodium 137, Potassium 2.7 L*, Chloride 108 H, Carbon Dioxide 25.0, Anion Gap 4 L, BUN 2 L, Creatinine 0.34 L, Estim Creat Clear Calc 38.44, Est GFR (MDRD) Af Amer 231, Est GFR (MDRD) Non-Af 191, BUN/Creatinine Ratio 5.8 L, Glucose 124 H, Calcium 6.9 L, Phosphorus 0.7 L*, Magnesium 2.1, Total Bilirubin 0.50, Direct Bilirubin 0.18, AST 11 L, ALT 11 L, Alkaline Phosphatase 43 L, Total Protein 4.7 L, Albumin 2.2 L, Globulin 2.5 Micro: Microbiology 12/13/23 14:02 Urine, Catheterized Urine Culture - Final Culture exhibits no growth. 12/13/23 12:25 Urine, Clean Catch Urine Culture - Final Culture exhibits no growth. 12/13/23 01:12 Stool Enteric Bacteriology - Final 12/13/23 11:35 Stool Stool Lactoferrin - Final 12/13/23 11:35 Stool C. difficile GDH Antigen & Toxins - Final Toxigenic C. difficile 12/13/23 11:35 Stool Clostridioides difficile (PCR) - Final 12/13/23 11:35 Stool Stool Occult Blood (BRIAN) - Final Occult Blood Positive Physical Exam Const oriented x3 Resp normal respiratory effort Cardio regular rate and regular rhythm GI normal to inspection, nondistended, normoactive bowel sounds GI Narrative: Soft, very minimal tenderness to deep palpation left lower quadrant Assessment & Plan Assessment/Plan (1) Urinary retention with incomplete bladder emptying: (2) C. difficile colitis: (3) Hypokalemia: PLAN: Plan Patient clinically is improving. Still has some urinary retention issues and a Pierre catheter was replaced. I have personally had the opportunity discussed with Dr. Chavis the patient's ongoing treatment plans. Pierre will be removed today and further attempt to see if spontaneous voiding occurs and if not then the Pierre will need to be replaced and she will be discharged on tamsulosin. Patient will receive a total of 14 days of oral vancomycin as she is still having liquidy stool and treatment of her C. difficile colitis The patient is aware that she has bilateral inguinal hernias. They are not symptomatic. I was able to easily reduce the left inguinal hernia on clinical exam. She is aware to notify caretakers should she experience any discomfort in either groin area. Based upon her age she is not interested in pursuing future repair at this time Hypokalemia and hypophosphatemia both being replaced and the patient will be discharged on oral potassium and phosphorus replacement i.e. K-Phos Patient is aware that if she fails to resolve she certainly can contact my office for further follow-up. Yadiel Engel M.D., F.A.C.S.
[2023-12-16 07:34] LABS: Anion Gap 5 (5-15); BUN 2 mg/dL (7-18); BUN/Creat Ratio 5.9 RATIO (10-20); Chloride 108 mmol/L (98-107); Creatinine, Serum 0.34 mg/dL (0.55-1.02); EST Glomerular Filtration Rate 193 mL/min (>60); Est Glom Filt Rate - Afr Amer 233 mL/min (>60); Estimated Creatinine Clearance 38.44 ml/min; Glucose 133 mg/dL (74-106); Potassium 3.2 mmol/L (3.5-5.1); Sodium Level 138 mmol/L (136-145)
[2023-12-16 07:42] LABS: Phosphorus 1.3 mg/dL (2.5-4.9)
[2023-12-16] MEDS: Potassium Chloride Oral Tablet 20 MEQ 40 MEQ PO ×2 (07:58→12:17)
[2023-12-16] MEDS: Menthol/Lanolin/Calamine/Znox 113 GM Tube 1 APPLIC TOPICAL (07:59)
[2023-12-16] MEDS: Dorzolamide HCL/Timolol 10 ml Bottle 1 DRP EACH EYE (08:00)
--- NOTE | 2023-12-16 08:04 | DCINST_ITS ---
Discharge Instructions Diet Discharge Diet: Light diet - advance as tolerated (Soft diet advance gradually.) Activity Discharge Activity: Return to Normal Activity Weight Bearing Status: Weight bearing as tolerated Dressing / Incision Call your doctor if you observe: Fever of 101 or Higher, Coldness, Increased Pain, Numbness or Tingling, Change in Color, Inability to urinate, Inability to have a bowel movement, Using more than 1 pad per hour, Shortness of breath, Dizziness, Fainting spells, Swelling in the ankles, Chest pain, Prolonged hiccupping, Increased palpitations (irregular heartbeat) and Calf discomfort Follow Up Care When: IN 2 WEEKS Test Results: Test results from this visit will be discussed in further detail at your follow- up appointment, if applicable. Discharge Plan Admission Admit Date/Time: 12/12/23 20:02 Attending Provider: Casimiro Chavis Primary Care Provider: Zuly Merritt Consulting Providers: Melvin Zhang; Yadiel Engel Instructions Additional Instructions / Restrictions: Patient was advised to follow-up with urologist near her hometown, [place]. She is discharged on tamsulosin for urinary retention. Total 2 weeks prescription of vancomycin oral 125 mg every 6 hourly given. Discharge Orders/Prescriptions Prescriptions: New acidophilus-pectin, citrus 25 million cell -100 mg Tablet 1 tab PO TID Qty: 0 0RF Rx Instructions: Lactobacillus probiotic available [id number]. Take it for 2 weeks. tamsulosin 0.4 mg Capsule 0.4 mg PO DAILY@1730 30 Days Qty: 30 2RF vancomycin [Firvanq] 25 mg/mL Recon Soln 125 mg PO Q6 12 Days Qty: 240 0RF potassium, sodium phosphates 280-160-250 mg Powder In Packet 1 packet PO TID 5 Days Qty: 100 0RF Continued Levothyroxine Sodium 25 mcg PO DAILY psyllium Packet 1 packet PO DAILY PRN (Reason: constipation) dorzolamide-timolol 22.3-6.8 mg/mL drops 1 drp ophthalmic (eye) BID amlodipine 5 mg tablet 5 mg PO DAILY Vyzulta 0.024 % drops 1 drp EACH EYE QHS Centrum Adult 50 Plus 80 mcg tablet,chewable 1 tab PO DAILY Healthy Eyes SuperVision 4,296 mcg-226 mg-90 mg capsule 1 cap PO DAILY Held omeprazole 20 mg Capsule,Delayed Release(Dr/Ec) 20 mg PO DAILY Hold Instructions: Hold for 2 to 3 weeks Discontinued amoxicillin-pot clavulanate 875-125 mg tablet 1 tab PO BID 7 Days Qty: 14 0RF Hold Instructions: MD Ordered Referrals / Follow Up: Yadiel Engel MD [Med Staff - Active Staff] - Within 1 Month (as needed for colitis) Zuly Merritt MD [Primary Care Provider] - Disposition Disposition (needs filled in before D/C Order can be placed): Home, Self Care
[2023-12-16 08:05] VITALS: BP 111/77; PULSE 94; RESP 18; TEMP 36.6; O2SAT 97
[2023-12-16] MEDS: amLODIPine 5 MG Tablet PO (08:10)
[2023-12-16] MEDS: Pantoprazole Sodium 20 MG Tablet PO (08:10)
[2023-12-16] MEDS: Enoxaparin 40 MG/0.4 ML Syringe SC (08:12)
[2023-12-16] MEDS: Potassium Phosphate 21 MM in 0.9% Normal Saline (250mL Bag) 250 ML 84 MM IV (08:49)
--- NOTE | 2023-12-16 10:58 | DS.PCM_ITS ---
Providers Date of Admission: 12/12/23 Date of Discharge: 12/16/23 Primary Care Physician: Dr. Zuly Merritt MD Consultations 12/13/23 07:59 Consult: General Surgery Routine Consulting Provider: Yadiel Engel Reason for Consult: colitis/diverticulitis EMERGENT Consult: No MD Notified: Yes Date Notified: 12/13/23 Time Notified: 07:59 Method of Notification: Verbal Reason For Visit: DIVERTICULITIS Diagnosis Discharge Diagnosis (1) Urinary retention with incomplete bladder emptying: Status: Acute Code(s): R33.9 - Retention of urine, unspecified (2) C. difficile colitis: Status: Acute Code(s): A04.72 - Enterocolitis due to Clostridium difficile, not specified as recurrent (3) Hypokalemia: Status: Acute Code(s): E87.6 - Hypokalemia Plan 80-year-old female was admitted with 5 days history of left lower quadrant abdominal pain and diarrhea. On 12/10: CT scan showed features of colitis 1. Acute segmental colitis involving sigmoid and descending colon with severe constipation and mild colonic ileus: Patient was evaluated in ED 1 day prior to admission and had CT scan abdomen/pelvis showed colitis and possible UTI therefore sent home on Augmentin. CT abdomen individually reviewed and showed significant fecal load and mild colonic ileus due to sigmoid colitis and right- sided fecal load. Inadequate oral intake with weakness and dehydration. No nausea or vomiting ? Continue with Cipro and Flagyl. Continue IV fluid. Abdominal pain secondary to colitis. Mild hypokalemia. Continue to replace potassium 12/13: Electrolyte abnormality. Patient has hypokalemia, hypophosphatemia and hypocalcemia: Electrolyte replacement ordered. Recheck electrolytes tomorrow. Continue vancomycin and IV Flagyl. 12/14: Patient still has severe hypokalemia and hypophosphatemia. Serum potassium 2.7, phosphorus 0.7 even though patient had IV potassium phosphate replacement. IV potassium phosphate ordered. Serum sodium normal. On oral potassium supplement also. 12/15: Diarrhea frequency and volume has gotten better. Object myself and was more greenish and mucus small amount. Started on vancomycin oral on 12/12 and vancomycin prescription given to complete total 2 weeks of duration of treatment. Prescription also given for Neutra-Phos for hypokalemia and hypophosphatemia. Urine retention, etiology unclear possible neurogenic/weak bladder: Patient had Pierre catheter which was removed yesterday and then in the evening had urine retention 457 mL and therefore Pierre catheter was reinserted. Patient does not want to go home with Pierre catheter difficult to manage therefore removed. Spontaneous voiding and to continue Flomax trial started during hospital stay. Advised to follow-up with urologist in her hometown, [place] and she knows that. Urine culture x 2 shows no growth. 2. Essential HTN ? Continue with her home Norvasc ? Will monitor make adjustments as necessary 3. Hypothyroidism ? Continue Synthroid 4. GERD ? Continue with PPI 5. Glaucoma ?Continue with her eyedrops DVT: Lovenox Discharge medication reconciliation done. Discharge follow-up instructions completed. Discharge process discussed with the patient and all questions were answered to patient's satisfaction. Discharge plan including prescription di scussed with the patient in detail and she understands it. Follow with PCP in 1 to 2 weeks Total time spent, exact 35 minutes on discharge meds reconciliation, examination, coordination of care with nurses and ancillary staff, review of imaging and blood test and discussion with the patient on follow-up instructions. Medications at Discharge Home Medications Levothyroxine Sodium 25 mcg PO DAILY thyroid 06/17/18 omeprazole 20 mg capsule,delayed release 20 mg PO DAILY reflux 02/07/21 psyllium 1 packet PO DAILY PRN constipation 02/07/21 amlodipine 5 mg tablet 5 mg PO DAILY bp 12/12/23 dorzolamide 22.3 mg-timolol 6.8 mg/mL eye drops 1 drp ophthalmic (eye) BID glaucoma 12/12/23 latanoprostene bunod 0.024 % eye drops (Vyzulta) 1 drp EACH EYE QHS glaucoma 12/12/23 multivitamin with minerals-folic acid 80 mcg chewable tablet (Centrum Adult 50 Plus) 1 tab PO DAILY supplement 12/12/23 vitamins A,C,P-eisg-zdphuf 4,296 mcg-226 mg-90 mg capsule (Healthy Eyes SuperVision) 1 cap PO DAILY eye health 12/12/23 acidophilus 25 million cell-pectin, citrus 100 mg tablet 1 tab PO TID #0 tabs 12/16/23 potassium, sodium phosphates 280 mg-160 mg-250 mg oral powder packet 1 packet PO TID 5 days #100 ea 12/16/23 tamsulosin 0.4 mg capsule 0.4 mg PO DAILY@1730 1 month #30 caps 12/16/23 vancomycin 25 mg/mL oral solution (Firvanq) 125 mg (5 mL) PO Q6 12 days #240 mL 12/16/23 Physical Exam Narrative Seen and examined. Abdominal pain has resolved. Frequency of diarrhea and volume has improved. On oral soft diet diet. Wants to go home. Physical exam General: Alert, Oriented x3, Cooperative HEENT: Atraumatic, PERRLA, EOMI, Normocephalic Oral: No Gingival or Mucosal Lesions/ Ulcerations Neck: Supple, No JVD, Negative Carotid Bruits Chest wall/Lungs: Air entry diminished in bilateral lung bases. No crepitation/rhonchi Cardiovascular: Regular rate, Regular Rhythm, Normal S1, Normal S2, systolic murmur over LLSB. Abdomen: Bowel Sounds sluggish. No tenderness/guarding or rigidity. No significant distention. : No dysuria. No renal angle tenderness. No suprapubic tenderness. Extremities: No significant leg edema, Capillary Refill Less than 3 Seconds Skin: No rashes, No breakdown Musculoskeletal: No Tenderness to Palpation of Joints or Extremities Neurological: Cranial nerves II-XII grossly intact, DTR 2+/4. No acute focal neurological deficit. Psych/Mental Status: Flat affect. Weight / BMI Weight Weight: 132 lb 4.438 oz Body Mass Index (BMI) 24.2 ABG / Lab / Microbiology Data 12/14/23 07:00 12/16/23 06:26 Laboratory: Laboratory Results - last 24 hr 12/15/23 06:45: Total Bilirubin 0.50, Direct Bilirubin 0.18, AST 11 L, ALT 11 L, Alkaline Phosphatase 43 L, Total Protein 4.7 L, Albumin 2.2 L, Globulin 2.5 12/16/23 06:26: Sodium 138, Potassium 3.2 L, Chloride 108 H, Carbon Dioxide 25.0 , Anion Gap 5, BUN 2 L, Creatinine 0.34 L, Estim Creat Clear Calc 38.44, Est GFR (MDRD) Af Amer 233, Est GFR (MDRD) Non-Af 193, BUN/Creatinine Ratio 5.9 L, Glucose 133 H, Calcium 7.0 L, Phosphorus 1.3 L Microbiology: Microbiology 12/13/23 14:02 Urine, Catheterized Urine Culture - Final Culture exhibits no growth. 12/13/23 12:25 Urine, Clean Catch Urine Culture - Final Culture exhibits no growth. 12/13/23 01:12 Stool Enteric Bacteriology - Final 12/13/23 11:35 Stool Stool Lactoferrin - Final 12/13/23 11:35 Stool C. difficile GDH Antigen & Toxins - Final Toxigenic C. difficile 12/13/23 11:35 Stool Clostridioides difficile (PCR) - Final 12/13/23 11:35 Stool Stool Occult Blood (BRIAN) - Final Occult Blood Positive D/C Instructions Discharge Diet: Light diet - advance as tolerated (Soft diet advance gradually.) Weight Bearing Status: Weight bearing as tolerated Call your doctor if you observe: Fever of 101 or Higher, Coldness, Increased Pain, Numbness or Tingling, Change in Color, Inability to urinate, Inability to have a bowel movement, Using more than 1 pad per hour, Shortness of breath, Dizziness, Fainting spells, Swelling in the ankles, Chest pain, Prolonged hiccupping, Increased palpitations (irregular heartbeat) and Calf discomfort When: IN 2 WEEKS Meaningful Use Info Meaningful Use Meaningful Use Diagnoses (Choose all that apply): None applicable Ischemic Stroke Statin Dosing Therapy Reference: STATIN DOSE THERAPY REFERENCE: * Patients > 75 years receive moderate or high dose statin therapy. * Patients 75 years or YOUNGER should receive HIGH intensity statin dose unless contraindicated. You will be required to document reason for non-treatment if statin daily dose does not meet guidelines. HIGH DOSE STATIN THERAPY DAILY Atorvastatin > than or = to 40 mg Rosuvastatin > than or = to 20 mg Amlodipine + Atorvastatin > than or = to 2.5/40 mg Ezetimibe + Simvastatin 10/80 mg Simvastatin 80mg Discharge Plan Admission Admit Date/Time: 12/12/23 20:02 Attending Provider: Casimiro Chavis Primary Care Provider: Zuly Merritt Consulting Providers: Melvin Zhang; Yadiel Engel Instructions Additional Instructions / Restrictions: Patient was advised to follow-up with urologist near her hometown, [place]. She is discharged on tamsulosin for urinary retention. Total 2 weeks prescription of vancomycin oral 125 mg every 6 hourly given. Discharge Orders/Prescriptions Prescriptions: New acidophilus-pectin, citrus 25 million cell -100 mg Tablet 1 tab PO TID Qty: 0 0RF Rx Instructions: Lactobacillus probiotic available [id number]. Take it for 2 weeks. tamsulosin 0.4 mg Capsule 0.4 mg PO DAILY@1730 30 Days Qty: 30 2RF vancomycin [Firvanq] 25 mg/mL Recon Soln 125 mg PO Q6 12 Days Qty: 240 0RF potassium, sodium phosphates 280-160-250 mg Powder In Packet 1 packet PO TID 5 Days Qty: 100 0RF Continued Levothyroxine Sodium 25 mcg PO DAILY psyllium Packet 1 packet PO DAILY PRN (Reason: constipation) dorzolamide-timolol 22.3-6.8 mg/mL drops 1 drp ophthalmic (eye) BID amlodipine 5 mg tablet 5 mg PO DAILY Vyzulta 0.024 % drops 1 drp EACH EYE QHS Centrum Adult 50 Plus 80 mcg tablet,chewable 1 tab PO DAILY Healthy Eyes SuperVision 4,296 mcg-226 mg-90 mg capsule 1 cap PO DAILY Held omeprazole 20 mg Capsule,Delayed Release(Dr/Ec) 20 mg PO DAILY Hold Instructions: Hold for 2 to 3 weeks Discontinued amoxicillin-pot clavulanate 875-125 mg tablet 1 tab PO BID 7 Days Qty: 14 0RF Hold Instructions: MD Ordered Referrals / Follow Up: Yadiel Engel MD [Med Staff - Active Staff] - Within 1 Month (as needed for colitis) Zuly Merritt MD [Primary Care Provider] - Disposition Disposition (needs filled in before D/C Order can be placed): Home, Self Care Charges/Coding Visit Charges Inpatient E&M: 64510 Disch Hosp >30min
--- NOTE | 2023-12-16 11:05 | CASEMGMT ---
Addendum entered by Miya Hunt 12/16/23 13:11: Received VM from Mervat @ [facility] @ [facility], inquiring if pt will need HHC @ discharge. Updates provided and made aware pt is declining wanting therapy and has been up in room w/no AD to ambulate. She states they have hospital f/u service where a nurse will see pt tomorrow, they will have home delivered meals set up for 30 days and also arrange for a counselor aide. She asks for clinicals/discharge info be faxed to her @ [phone]. Same done at this time. Original Note: KELLY FAN NOTE: Pt being discharged. RN MITA to room. Introduced self and role. Pt lives @ independent living. She states she has been in contact w/them and they will be working on getting meal delivery for her. She states she will be fine w/preparing her own meals until that is set up. She states she feels safe to return to independent living and denies needing and HHC for therapy. She reports she has been getting up in the room w/out difficulty and being steady on her feet and has been using no AD to ambulate. She denies needing any DME. She reports having a great support system. She denies having any discharge needs/concerns. Brenda MUNGUIA RN, CM
[2023-12-16 14:47] VITALS: BP 127/85; PULSE 97; RESP 18; TEMP 36.5; O2SAT 97
== END 2023-12-16 15:00 | disposition home or self-care (01) | DRG 372 ==
LOC: ED 17:57 → MS3 20:15
PROVIDERS: Physician Assistant; Admitting Provider Family Medicine; Emergency Provider Emergency Medicine; Visit Provider Internal Medicine
DX: A04.72 Enterocolitis due to Clostridium difficile, not specified as recurrent (principal); K50.118 Crohn's disease of large intestine with other complication; K56.7 Ileus, unspecified; N39.0 Urinary tract infection, site not specified; E03.9 Hypothyroidism, unspecified; I10 Essential (primary) hypertension; E86.0 Dehydration; E87.6 Hypokalemia; K21.9 Gastro-esophageal reflux disease without esophagitis; K59.00 Constipation, unspecified; Z80.0 Family history of malignant neoplasm of digestive organs; H40.9 Unspecified glaucoma; R33.9 Retention of urine, unspecified
CPT/HCPCS: 36415; 74177; 80048; 80053; 80076; 81001; 82274; 83605; 83630; 83735; 84100; 85025; 87086; 87177; 87209; 87493; 87506; 96361; 96374; 96375; 99283; 99284; J7030; J7040; J7050; Q9967; A4216; J0612; J0744; J2405

== ENCOUNTER 2024-02-17 05:35 | Day surgery (SDC) | payer MEDICARE, OTHER, SELFPAY ==
[2024-02-17] VITALS (9 sets, daily range): BP systolic 131–144; BP diastolic 83–91; PULSE 60–76; RESP 16; TEMP 36.2–37.1; O2SAT 92–98; BMI 22.1
--- NOTE | 2024-02-17 05:51 | DCINST_ITS ---
Discharge Instructions Procedure General Surgery Diet Discharge Diet: Light diet - advance as tolerated (if you have questions about your diet instructions, please talk to you doctor.) Activity Discharge Activity: May Not Drive (for 3-5 days or while taking narcotic pain medicine.) May shower in (days): 1 Lifting Restrictions: 10 pounds Dressing / Incision Call your doctor if your incision/area has: Continuous Slow Oozing, Sudden Increased Bleeding, Increased Pain/ Swelling, Increased Redness and Foul Smelling Discharge Call your doctor if you observe: Fever of 101 or Higher Suture Line Care: Avoid Pulling/Pushing and Avoid Pinching/Bending Additional Dressing/Incision Instructions:: Change or remove dressing in 4 days. Leave steri-strips in place for 1 week. Follow Up Care Please Follow Up With: Yadiel Engel MD When: Call [phone] to make an appointment to be seen in about 7 days. Test Results: Test results from this visit will be discussed in further detail at your follow- up appointment, if applicable. Discharge Plan Admission Attending Provider: Yadiel Engel Primary Care Provider: Zuly Merritt Instructions Print Language: Portuguese Discharge Orders/Prescriptions Prescriptions: No Action Levothyroxine Sodium 25 mcg PO DAILY acidophilus-pectin, citrus 25 million cell -100 mg Tablet 1 tab PO DAILY Rx Instructions: Lactobacillus probiotic available [id number]. Take it for 2 weeks. dorzolamide-timolol 22.3-6.8 mg/mL drops 1 drp ophthalmic (eye) BID amlodipine 5 mg tablet 5 mg PO DAILY Vyzulta 0.024 % drops 1 drp EACH EYE QHS Centrum Adult 50 Plus 80 mcg tablet,chewable 1 tab PO DAILY Healthy Eyes SuperVision 4,296 mcg-226 mg-90 mg capsule 1 cap PO DAILY Referrals / Follow Up: Zuly Merritt MD [Primary Care Provider] - Disposition Disposition (needs filled in before D/C Order can be placed): Home, Self Care
--- NOTE | 2024-02-17 05:51 | HP.PCM_ITS ---
History and Physical Date of Admission: 02/17/24 Allergies bee venom protein (honey bee) Allergy (Verified 01/03/24 13:03) Swellingbacitracin [From Neosporin ([id number])] Adverse Reaction (Verified 01/03/24 13:03) Rashneomycin [From Neosporin ([id number])] Adverse Reaction (Verified 01/03/24 13:03) RashPenicillins Adverse Reaction (Verified 01/03/24 13:03) Hivespolymyxin B [From Neosporin ([id number])] Adverse Reaction (Verified 01/03/24 13:03) Rash Medications Levothyroxine Sodium 25 mcg PO DAILY thyroid 06/17/18 [History Confirmed 01/03/24] psyllium 1 packet PO DAILY PRN constipation 02/07/21 [History Confirmed 01/03/24] amlodipine 5 mg tablet 5 mg PO DAILY bp 12/12/23 [History Confirmed 01/03/24] dorzolamide 22.3 mg-timolol 6.8 mg/mL eye drops 1 drp ophthalmic (eye) BID glaucoma 12/12/23 [History Confirmed 01/03/24] latanoprostene bunod 0.024 % eye drops (Vyzulta) 1 drp EACH EYE QHS glaucoma 12/12/23 [History Confirmed 01/03/24] multivitamin with minerals-folic acid 80 mcg chewable tablet (Centrum Adult 50 Plus) 1 tab PO DAILY supplement 12/12/23 [History Confirmed 01/03/24] vitamins A,C,J-aehy-uolgno 4,296 mcg-226 mg-90 mg capsule (Healthy Eyes SuperVision) 1 cap PO DAILY eye health 12/12/23 [History Confirmed 01/03/24] acidophilus 25 million cell-pectin, citrus 100 mg tablet 1 tab PO TID #0 tabs 12/16/23 [Rx Confirmed 01/03/24] vancomycin 25 mg/mL oral solution (Firvanq) 125 mg (5 mL) PO Q6 12 days #240 mL 12/16/23 [Rx Confirmed 01/03/24] PFSH Medical History Abdominal pain Alcohol use C. difficile colitis Cancer Colon cancer Gastric reflux History of diverticulitis Hypothyroid Non-smoker Personal history of colon cancer Thyroid disease Urinary retention with incomplete bladder emptying Wears glasses Wears hearing aid Surgical History S/P colectomy (~1995) S/P colonoscopy (~2017) Family History Aunt Breast cancer Colon cancerBrother DiabetesFather CVA (cerebral vascular accident) Social History Smoking Status: Never smoker alcohol intake: current alcohol intake frequency: 0-2 drinks per day HPI HPI HPI: 88-year-old female who was hospitalized at the [facility] from December 11 through December 16, 2023. She was hospitalized with abdominal pain urinary retention and diarrhea. An initial diagnosis of diverticulitis was made but that was incorrect. The patient was then determined to have C. difficile colitis. Several weeks prior she had taken oral antibiotics for a dental issue. There was some concern that she had a urinary tract infection but this was subsequently excluded. She did require Pierre catheter placement. She was initiated on tamsulosin. It is of note that she is on omeprazole therapy which might complicate her C. difficile colitis. She was found to be hypokalemic during her hospitalization and required ongoing treatment. Additional medications at discharge include acidophilus and potassium replacement and tamsulosin and vancomycin. The vancomycin was prescribed for an additional 12 days. It is of note that her most recent colonoscopy was February 11, 2021 and she was clear of disease at that time. 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 At the time of her most recent hospitalization she was also at least by imaging found to have right-sided constipation over colon. It is a further an additional note that the CT imaging demonstrated bilateral inguinal hernias. The patient actually has reasonably significant bulging on the left side and with some effort a manually reducible inguinal hernia ROS General General: Yes colon cancer; No weight change, appetite, fatigue, breast cancer or weakness HEENT HEENT: No difficulty swallowing, eye injury, eye surgery, swollen glands or hoarseness Endo Endocrine: Yes thyroid disease; No diabetes mellitus, thyroid cancer, Hair loss, heat intolerance or cold intolerance Skin Skin: No rash or changing moles Musc Musculoskeletal: No back problems, arthritis, rheumatoid arthritis, gout or joint pain Cardio Cardiovascular: Yes high blood pressure; No murmur, pacemaker, heart disease, atrial fibrillation, heart attack, heart stent, palpitations, shortness of breat with exertion or chest pain Psych Psychiatric: No depression, anxiety or hearing voices Resp Respiratory: No shortness of breath, No sleep apnea, No cough, No COPD, No asthma, No emphysema and No wheezing Gastro Gastrointestinal: No abdominal pain, No nausea or vomiting, No diarrhea, Yes constipation, No blood in stool, No acid reflux, No hemorrhoids, No ulcers, No gallbladder problem and No black,tarry stools Aaron Hematologic: No blood thinners, No blood disorders, No bleeding, No anemia and No blood clots Neuro Neurologic: No system reviewed and no additional complaints, except as documented, No as per HPI, No abnormal gait, No abnormal hearing, No abnormal movements, No abnormal speech, No behavioral changes, No burning sensations, No confusion, No convulsions, No disequilibrium, No dizziness, No localized weakness, No frequent falls, No headache(s), No lack of coordination, No loss of vision, No memory loss, No numbness, No other visual disturbances, No radicular pain, No restless legs, No sensory deficit, No syncope, No tingling, No tremor(s), No weakness and No other Exam Const General: cooperative, healthy appearing, comfortable and no acute distress Nutritional Appearance: underweight [facility] Head: normal to inspection Eyes General: appearance normal, both eyes and all related structures Neck Neck: normal visual inspection Chest Chest palpation & inspection: normal inspection of the chest Resp Effort & Inspection: normal respiratory effort Auscultation: clear to auscultation bilaterally Cardio Rate: regular rate Rhythm: regular rhythm GI Palpation: soft and no hepatosplenomegaly Other: Slight fullness right abdomen but nontender. No mass no rebound. Well-healed infraumbilical midline incision Other: Obvious left inguinal hernia which requires some effort and manual reduction. Smaller right inguinal hernia that self reduces when supine[place] [facility] [place] Spine: normal cervical lordosis Skin General: no rashes or lesions noted Neuro General: patient alert and patient awake Extrem General: no calf tenderness Psych Appearance: grossly normal Assessment and Plan Assessment and Plan (1) Hypokalemia: Status: Acute (2) C. difficile colitis: Status: Acute (3) Personal history of colon cancer: Status: Acute Plan Today was an extensive treatment discussion. The patient states that she is already seen her primary care physician had her potassium level rechecked and that had normalized. She is not requiring ongoing potassium replacement. Regarding the patient's urinary retention identified during her hospitalization she states that no longer is a problem. She states that she never filled the tamsulosin therapy. Vancomycin for the C. difficile colitis she took 3 times a day so she is still taking the medication as it had been written for 4 times daily. She is essentially day 14. Will stop the vancomycin at this time. She has some slight minimal fecal incontinence. Stools are not normal yet but they are more firm than previously. No fever no chills. No abdominal pain. She has been instructed to stop the vancomycin and assess how her bowel functions proceed. At this point we will assess the need for any repeat C. difficile testing based upon her clinical progress. We also discussed whether she would need a follow- up colonoscopy. The patient automatically on her own had stopped her omeprazole. She feels that is likely the omeprazole added to her C. difficile risk and I suggested to her that perhaps her oral antibiotic care for the dental procedure plus the omeprazole may have indeed been contributory. She will see clinically how she progresses with her bowels. Regarding her right-sided constipation at this point simply have encouraged increased fluid and fiber. The patient additionally takes MiraLAX which she can continue to utilize gauge upon her bowel progression. We had then an extensive discussion regarding her inguinal hernias. Because of her complicated previous colon surgery I am not recommending a laparoscopic approach. I have not personally had good luck with simultaneous bilateral open procedures. I believe that her left inguinal hernia does have a significant amount of bowel involvement that is somewhat trickier to reduce. I have suggested to her to consider a left inguinal hernia repair with mesh in an open fashion done and monitored anesthesia care and local anesthetic as an outpatient. I have cautioned her that she will require 1 dose of IV preoperative antibiotic. With that in mind likely will initiate her on oral metronidazole at the time of discharge for 3 days. She is aware of the potential risk for reactivation of her C. difficile. We however did discuss that she is enjoying still high quality of life with significant mental faculty retention at age 88. If she were to incarcerate her bowel or strangulated her bowel requiring intra-abdominal work with her previous surgery that certainly would be more complicated in the fire risk. After discussion she is interested in repair. We will schedule for later in January. The patient is very much aware that I will be retiring at the end of February. Regarding her right inguinal hernia this is much smaller at this time. I do not have elective recommendations for repair at this time Patient's had an opportunity to ask and have questions answered. I appreciate the opportunity of assisting with her surgical care. We will proceed as noted. Copy:MD Yadiel Balbuena M.D., F.A.C.S I have examined the patient and the H&P has been reviewed. There are no clinical changes since date of exam. Yadiel Engel M.D., F.A.C.S. It is of note that the patient is interested in future proceeding with a right inguinal hernia repair. She is aware that I do find it challenging for the patient to recover from the simultaneously performed bilateral open inguinal hernia repair. She is age 88. I believe that is reasonable to pursue a open left inguinal hernia repair today and she is tentatively scheduled to have a return on March 07, 2024 to have a right inguinal hernia repair. Yadiel Engel M.D., F.A.C.S.
[2024-02-17] MEDS: Lactated Ringers 1,000 ML 15 ML IV (06:37)
[2024-02-17] MEDS: Clindamycin 900 MG/50 ML BAG 75 MG IV (07:21)
--- NOTE | 2024-02-17 07:34 | PCM.PRE.AN2 ---
ASA Classification* ASA Classification ASA Classification: 2 Assessment & Plan Anesthesia* Anesthesia Assessment Anesthesia Assessment: Discussed sedation and/or anesthesia options, risks, benefits, and alternatives with patient/parents/legal guardian/POA. Questions invited. The patient/parents/legal guardian/POA seems to understand and agrees to proceed with anesthesia plan. Reviewed the physical assessment, medical history, allergy history and patient home medications list prior to surgery/procedure/anesthetic and documented any changes. Performed airway and anesthesia risk assessments. Procedural Plan Procedural Plan:: Proceed w/ Anesthesia plan Anesthesia Type Anesthesia Type: General (see written pre anesthesia record for full assessment) Anesthesia Focused Assessment* Temperature: 98.8 F Pulse Rate: 63 Blood Pressure: 134/91 Respiratory Rate: 16 Pulse Ox: 98 Airway Assessment Mouth opens: >3 cm Mallampati Score: III Focused Labs Anesthesia Preop lab: CBC WBC 9.2 K/mm3 (4.4-11.0) 12/14/23 07:00 RBC 3.81 M/mm3 (4.2-5.4) L 12/14/23 07:00 Hgb 11.9 g/dL (12.0-15.0) L 12/14/23 07:00 Hct 36.0 % (37-47) L 12/14/23 07:00 Plt Count 227 K/mm3 (150-450) 12/14/23 07:00 CHEMISTRY Potassium 3.2 mmol/L (3.5-5.1) L 12/16/23 06:26 Sodium 138 mmol/L (136-145) 12/16/23 06:26 Magnesium 2.1 mg/dL (1.6-2.6) 12/15/23 06:45 Phosphorus 1.3 mg/dL (2.5-4.9) L 12/16/23 06:26 BUN 2 mg/dL (7-18) L 12/16/23 06:26 Creatinine 0.34 mg/dL (0.55-1.02) L 12/16/23 06:26 Glucose 133 mg/dL (74-106) H 12/16/23 06:26 COAG Pre-Assessment Diagnosis/Proposed Procedure Planned Operative Procedure(s): (L) Left Open Hernia, Inguinal w/ Mesh Anesthesia History 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 When Was Last Pacemaker Check QUESTION #4 FULL TEXT: You/Your Family Experience fever (hyperthermia) with Anesthesia Last Oral Intake Last Oral intake: Last Oral Intake NPO since 20:00 02/17/24 06:24 Meds taken in AM with sips of Yes 02/17/24 06:24 water? Meds patient instructed to AMLODIPINE 02/17/24 06:24 take am of surgery LEVOTHYROXINE MORNING EYE GTT PONV PONV - cleaning manager: PONV - cleaning manager Female Yes 02/04/24 10:57 HX of Motion Sickness No 02/04/24 10:57 HX of N/V After Surgery No 02/04/24 10:57 Non-Smoker Yes 02/04/24 10:57 Duration of Surgery greater Yes 02/04/24 10:57 than 60 minutes Number of Risk Factors 3 02/04/24 10:57 PONV Score Moderate Risk 02/04/24 10:57 Height & Weight Height & Weight: Anesthesia: Height & Weight Height 5 ft 2 in 02/17/24 06:24 Weight: 55 kg 02/17/24 06:24 Body Mass Index (BMI) 22.1 02/17/24 06:24 Respiratory Assessment Respiratory Assessment - cleaning manager: Respiratory Tract Infection Hx - cleaning manager Hx Respiratory Tract Infection No 02/04/24 10:57 STOP Sleep Apnea STOP Sleep Apnea - cleaning manager: STOP Sleep Apnea - cleaning manager Hx Hypertension Yes 02/04/24 10:57 Hx Sleep Apnea No 02/04/24 10:57 CPAP No 02/11/21 09:44 BIPAP Do you snore loudly (louder No 02/04/24 10:57 than talking or can be heard Do you often feel tired/ No 02/04/24 10:57 fatigued/ sleepy during daytime? Has anyone observed you stop No 02/04/24 10:57 breathing during sleep? STOP Results Negative 02/04/24 10:57 QUESTION #5 FULL TEXT : Do you snore loudly (louder than talking or can be heard through closed doors)? 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 Specify any problems Hx of Preganancy in last 3 No 02/04/24 10:57 Months Nurse Filling Out Transfusion [facility] 02/04/24 10:57 & Questions: Date: 02/04/24 02/04/24 10:57 Time: 11:10 02/04/24 10:57 Patient unable to answer at this time (ie. confused, unrespo /Reproduction History /Reproductive History - cleaning manager: /Reproductive Hx- cleaning manager Hx Now No 02/04/24 10:57 Gestational Age (in weeks): EDC: Hx Hx Para Hx Section SAB No 02/07/21 15:41 Active Medications Active Medications: Current Medications Generic Name Dose Route Start Last Admin Trade Name Freq PRN Reason Stop Dose Admin Acetaminophen 650 mg 02/17/24 07:11 Acetaminophen 325 Mg Tablet PO Q6H PRN PRN Pain Score 1-10 Hydrocodone Bitart/Acetaminophen 1 - 2 tablet 02/17/24 07:11 Hydrocodone Bitartrate/Apap 5/325 Tablet PO Q4H PRN PRN Pain Score 1-10 Clindamycin Phosphate 900 mg in 50 mls @ 75 mls/hr 02/17/24 07:30 Cleocin IV 02/17/24 08:09 PREOP ONE Lactated Ringer's 1,000 mls @ 15 mls/hr 02/17/24 06:00 02/17/24 06:37 IV 15 mls/hr .Q48H FRANCISCA Administration PFSH Medical History Dietary restriction Former smoker Hypertension Urinary retention with incomplete bladder emptying C. difficile colitis Wears hearing aid Wears glasses Cancer Alcohol use Thyroid disease Non-smoker Personal history of colon cancer Abdominal pain History of diverticulitis Colon cancer Hypothyroid Home Medications ?Medication ?Instructions ?Recorded ?Last Taken ?Type Levothyroxine Sodium 25 mcg PO DAILY thyroid 06/17/18 Unknown History amlodipine 5 mg tablet 5 mg PO DAILY bp 12/12/23 02/17/24 History dorzolamide 22.3 mg-timolol 6.8 1 drp ophthalmic (eye) BID glaucoma 12/12/23 Unknown History mg/mL eye drops latanoprostene bunod 0.024 % eye 1 drp EACH EYE QHS glaucoma 12/12/23 Unknown History drops (Vyzulta) multivitamin with minerals-folic 1 tab PO DAILY supplement 12/12/23 Unknown History acid 80 mcg chewable tablet (Centrum Adult 50 Plus) vitamins A,C,J-nooe-olwzcu 4,296 1 cap PO DAILY eye health 12/12/23 Unknown History mcg-226 mg-90 mg capsule (Healthy Eyes SuperVision) acidophilus 25 million 1 tab PO DAILY 02/04/24 Unknown History cell-pectin, citrus 100 mg tablet hydrocodone-acetaminophen 5-325mg 1 tab PO Q6H PRN pain 3 days #8 02/17/24 Unknown Rx 5mg-325mg tabs Allergy/AdvReac Type Severity Reaction Status Date / Time bee venom protein (honey bee) Allergy Swelling Verified 01/03/24 13:03 bacitracin (From Neosporin AdvReac Rash Verified 01/03/24 13:03 ([id number])) neomycin (From Neosporin AdvReac Rash Verified 01/03/24 13:03 ([id number])) Penicillins AdvReac Hives Verified 01/03/24 13:03 polymyxin B (From Neosporin AdvReac Rash Verified 01/03/24 13:03 ([id number])) Family History Aunt Breast cancer Colon cancer Brother Diabetes Father CVA (cerebral vascular accident) Surgical History History of eyelid surgery History of eye surgery S/P colonoscopy (~2017) S/P colectomy (~1995) Social History Smoking Status: Never smoker alcohol intake: current alcohol intake frequency: 0-2 drinks per day Review of Systems (Anesthesia) ROS Narrative System reviewed and no additional complaints, except as documented.
[2024-02-17] MEDS: Bupivacaine Mpf 0.5% 30 ML VIAL (08:43)
--- NOTE | 2024-02-17 08:43 | PCM.OPRPT ---
Report of Operation Date of Procedure: 02/17/24 Pre-Operative Diagnosis: Left inguinal hernia Post-Operative Diagnosis: Small indirect left inguinal hernia, sizable left femoral hernia Surgery/Procedure Performed:: Dudley left inguinal herniorrhaphy and direct repair left femoral hernia Description of Surgical Findings:: Timeout informed consent was obtained. 88-year-old female was taken to the operating placed on the table and general anesthesia Meissen 100 mg were given intravenously the left groin was sterilely prepped and draped. 0.25% Marcaine was used as a local anesthetic. Skin sites were Aleah size. A total of 25 cc was used. A transverse incision was made in the left groin sharp dissection carried down through subcu tissue hemostasis attained with electrocautery the external bleak was identified and opened and then there was a degree of perplexity as it appeared that there was a very small indirect defect that did not correlate with the imaging. Upon review of the CAT scan it became apparent that this actually was a femoral hernia not an inguinal hernia as reported by radiology. Sharp and blunt dissection was used to identify the femoral hernia and the hernia sac was identified and carefully tediously circumferentially dissected free and inverted. The inguinal ligament was then approximated to Simeon's ligament. That triangular space was closed. Great care was taken to dissect free and identify the femoral vein and then protected. [place] that I had good closure with simple sutures of 3-0 Ethibond. Then reinspected the indirect defect. Transected the round ligament. Placed of Bard preshaped mesh wrapped around the internal ring secured to itself with 3-0 Ethibond secured at the pubic tubercle aponeurosis of the internal/external bleak and the shelving edge of Poupart's. The tails were placed beneath the external oblique laterally. [place] that I had good general coverage of the groin area. The external oblique was approximated a running 3-0 Vicryl. Subdermal tissues approximate the same. Skin edges were approximated running subicular 4-0 Monocryl. Steri-Strips Telfa OpSite dressings applied. Sponge and instrument and needle counts were reported to the surgeon to be correct. Specimens none. Drains none. It is of note that a very small piece of fibrillar was placed deep in the femoral artery to assure hemostasis. She was taken to the recovery room in satisfied condition without apparent complication. Surgeon: Yadiel Engel Type of Anesthesia: General and Local Anesthesiologist: Davonte Lee
--- NOTE | 2024-02-17 08:57 | PCM.POST.ANE ---
Anesthesia: Postop Eval I Current Vital Signs Temperature: 97.8 F Pulse Rate: 64 Blood Pressure: 142/85 Respiratory Rate: 16 Pulse Ox: 96 Oxygen Delivery Method: Room Air Assessment Airway patent: Yes Spontaneous unlabored respirations: Yes Mental status: Awake and Calm nausea: No Vomiting: No Anesthesia Complication: No Fluid Hydration Crystalloid volume administer (ml): 700 Total IV fluid infused: 700 Progress Note Anesthesia document: Postop Eval 1 completed: Yes
--- NOTE | 2024-02-17 10:04 | POSTOPAN2_ITS ---
Anesthesia Postop Eval I Sum Postop Eval Completion status Anesthesia document: Postop Eval 1 completed: Yes Anesthesia Postop Eval I Summary Anesthesia Postop Eval I Summary: Anesthesia Postop Eval I: Assessment Summary Airway patent Yes 02/17/24 08:58 OBSTETRIC ANAESTHETIST.SCHR Spontaneous unlabored Yes 02/17/24 08:58 OBSTETRIC ANAESTHETIST.SCHR respirations Mental status Awake,Calm 02/17/24 08:58 OBSTETRIC ANAESTHETIST.SCHR nausea No 02/17/24 08:58 OBSTETRIC ANAESTHETIST.SCHR Vomiting No 02/17/24 08:58 OBSTETRIC ANAESTHETIST.[facility] Anesthesia Postop Eval I: Fluid Summary Crystalloid volume administer 700 02/17/24 08:58 OBSTETRIC ANAESTHETIST.SCHR (ml) Colloids volume administered ( ml) Blood Product volume administered (ml) Total IV fluid infused 700 02/17/24 08:58 OBSTETRIC ANAESTHETIST.SCHR Anesthesia Postop Eval I: Summary Notes Anesthesia Complication No 02/17/24 08:58 OBSTETRIC ANAESTHETIST.SCHR Anesthesia Complication Comment: Post-operative progress note Anesthesia: Postop Eval II Evaluation Mental status: Awake Pain Level: 0 nausea: No Vomiting: No Complications Anesthesia Complication: No
--- NOTE | 2024-02-17 10:04 | PCM.POSTANE2 ---
Anesthesia Postop Eval I Sum Postop Eval Completion status Anesthesia document: Postop Eval 1 completed: Yes Anesthesia Postop Eval I Summary Anesthesia Postop Eval I Summary: Anesthesia Postop Eval I: Assessment Summary Airway patent Yes 02/17/24 08:58 DISPENSING OPTICIAN.SCHR Spontaneous unlabored Yes 02/17/24 08:58 DISPENSING OPTICIAN.SCHR respirations Mental status Awake,Calm 02/17/24 08:58 DISPENSING OPTICIAN.SCHR nausea No 02/17/24 08:58 DISPENSING OPTICIAN.SCHR Vomiting No 02/17/24 08:58 DISPENSING OPTICIAN.[facility] Anesthesia Postop Eval I: Fluid Summary Crystalloid volume administer 700 02/17/24 08:58 DISPENSING OPTICIAN.SCHR (ml) Colloids volume administered ( ml) Blood Product volume administered (ml) Total IV fluid infused 700 02/17/24 08:58 DISPENSING OPTICIAN.SCHR Anesthesia Postop Eval I: Summary Notes Anesthesia Complication No 02/17/24 08:58 DISPENSING OPTICIAN.SCHR Anesthesia Complication Comment: Post-operative progress note Anesthesia: Postop Eval II Evaluation Mental status: Awake Pain Level: 0 nausea: No Vomiting: No Complications Anesthesia Complication: No
== END 2024-02-17 10:52 | disposition home or self-care (01) ==
LOC: SDC 05:35 → AC 05:36
PROVIDERS: Visit Provider Surgery
PROC: (CPT 49550; principal; 2024-02-17 07:15)
DX: K40.90 Unilateral inguinal hernia, without obstruction or gangrene, not specified as recurrent (principal); K41.90 Unilateral femoral hernia, without obstruction or gangrene, not specified as recurrent; A04.71 Enterocolitis due to Clostridium difficile, recurrent; E87.6 Hypokalemia; E03.9 Hypothyroidism, unspecified; I10 Essential (primary) hypertension; Z79.899 Other long term (current) drug therapy
CPT/HCPCS: 49550; 00830; J7120; C1781; J2405

== ENCOUNTER 2024-03-07 05:57 | Day surgery (SDC) | payer MEDICARE, OTHER, SELFPAY ==
[2024-03-07] VITALS (8 sets, daily range): BP systolic 128–157; BP diastolic 79–90; PULSE 64–71; RESP 14–18; TEMP 36.5–36.9; O2SAT 92–96; BMI 22.3
[2024-03-07] MEDS: Lactated Ringers 1,000 ML 15 ML IV (06:46)
--- NOTE | 2024-03-07 07:11 | PCM.HP.BLA ---
History and Physical Date of Admission: 03/07/24 Intake Visit Reasons: INGUINAL HERNIA 02-16 Chief Complaint: inguinal hernia 02-16 Is patient in pain?: Yes (sore/tender) Allergies bee venom protein (honey bee) Allergy (Verified 02/23/24 10:23) Swellingbacitracin (From Neosporin ([id number]-rvo-rhort)) Adverse Reaction (Verified 02/23/24 10:23) Rashneomycin (From Neosporin ([id number])) Adverse Reaction (Verified 02/23/24 10:23) RashPenicillins Adverse Reaction (Verified 02/23/24 10:23) Hivespolymyxin B (From Neosporin ([id number])) Adverse Reaction (Verified 02/23/24 10:23) Rash Medications ?Medication ?Instructions ?Recorded ?Confirmed ?Type Levothyroxine Sodium 25 mcg PO DAILY thyroid 06/17/18 02/23/24 History amlodipine 5 mg tablet 5 mg PO DAILY bp 12/12/23 02/23/24 History dorzolamide 22.3 mg-timolol 6.8 1 drp ophthalmic (eye) BID glaucoma 12/12/23 02/23/24 History mg/mL eye drops latanoprostene bunod 0.024 % eye 1 drp EACH EYE QHS glaucoma 12/12/23 02/23/24 History drops (Vyzulta) multivitamin with minerals-folic 1 tab PO DAILY supplement 12/12/23 02/23/24 History acid 80 mcg chewable tablet (Centrum Adult 50 Plus) vitamins A,C,O-cnel-ywnqrb 4,296 1 cap PO DAILY eye health 12/12/23 02/23/24 History mcg-226 mg-90 mg capsule (Healthy Eyes SuperVision) acidophilus 25 million 1 tab PO DAILY 02/04/24 02/23/24 History cell-pectin, citrus 100 mg tablet hydrocodone-acetaminophen 5-325mg 1 tab PO Q6H PRN pain 3 days #8 02/17/24 02/23/24 Rx 5mg-325mg tabs Have you fallen in the past year?: No PFSH Medical History (Updated 02/23/24 @ 13:36 by Erika SANDERSON PA-C) Dietary restriction Former smoker Hypertension Urinary retention with incomplete bladder emptying C. difficile colitis Wears hearing aid Wears glasses Cancer Alcohol use Thyroid disease Non-smoker Personal history of colon cancer Abdominal pain History of diverticulitis Colon cancer Hypothyroid Surgical History (Updated 02/23/24 @ 10:22 by Katia Nuñez) Hx of inguinal hernia surgery History of eyelid surgery History of eye surgery S/P colonoscopy (~2017) S/P colectomy (~1995) Family History Aunt Breast cancer Colon cancerBrother DiabetesFather CVA (cerebral vascular accident) Social History Smoking Status: Never smoker alcohol intake: current alcohol intake frequency: 0-2 drinks per day HPI HPI Surgical H&P: Yes HPI: Patient is an 88 y/o F I am following s/p open left inguinal hernia repair with mesh by Dr. Engel on 02/17/24. Patient tolerated the procedure well. The same day of the procedure, she was evaluated in our office for possible drainage/bleeding at the incision site. Patient had pressure held for 20 minutes and also had her dressings changed. Patient notes she is sore in the left groin area. She denies extensive swelling. She notes it is painful to go from a low sitting position to a standing. She denies any nausea, vomiting, fever since the procedure. Patient has a small right inguinal hernia that she will have repaired by Dr. Engel on the 07 of March. She would like to continue to pursue this procedure at this time. Patient' previous history per Dr. Engel: 88-year-old female who was hospitalized at the [facility] from December 11 through December 16, 2023. She was hospitalized with abdominal pain urinary retention and diarrhea. An initial diagnosis of diverticulitis was made but that was incorrect. The patient was then determined to have C. difficile colitis. Several weeks prior she had taken oral antibiotics for a dental issue. There was some concern that she had a urinary tract infection but this was subsequently excluded. She did require Pierre catheter placement. She was initiated on tamsulosin. It is of note that she is on omeprazole therapy which might complicate her C. difficile colitis. She was found to be hypokalemic during her hospitalization and required ongoing treatment. Additional medications at discharge include acidophilus and potassium replacement and tamsulosin and vancomycin. The vancomycin was prescribed for an additional 12 days. It is of note that her most recent colonoscopy was February 11, 2021 and she was clear of disease at that time. 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 At the time of her most recent hospitalization she was also at least by imaging found to have right-sided constipation over colon. It is a further an additional note that the CT imaging demonstrated bilateral inguinal hernias. The patient actually has reasonably significant bulging on the left side and with some effort a manually reducible inguinal hernia ROS General General: Yes colon cancer; No weight change, appetite, fatigue, breast cancer or weakness HEENT HEENT: No difficulty swallowing, eye injury, eye surgery, swollen glands or hoarseness Endo Endocrine: Yes thyroid disease; No diabetes mellitus, thyroid cancer, Hair loss, heat intolerance or cold intolerance Skin Skin: No rash or changing moles Musc Musculoskeletal: No back problems, arthritis, rheumatoid arthritis, gout or joint pain Cardio Cardiovascular: Yes high blood pressure; No murmur, pacemaker, heart disease, atrial fibrillation, heart attack, heart stent, palpitations, shortness of breat with exertion or chest pain Psych Psychiatric: No depression, anxiety or hearing voices Resp Respiratory: No shortness of breath, No sleep apnea, No cough, No COPD, No asthma, No emphysema and No wheezing Gastro Gastrointestinal: No abdominal pain, No nausea or vomiting, No diarrhea, Yes constipation, No blood in stool, No acid reflux, No hemorrhoids, No ulcers, No gallbladder problem and No black,tarry stools Aaron Hematologic: No blood thinners, No blood disorders, No bleeding, No anemia and No blood clots Neuro Neurologic: No system reviewed and no additional complaints, except as documented, No as per HPI, No abnormal gait, No abnormal hearing, No abnormal movements, No abnormal speech, No behavioral changes, No burning sensations, No confusion, No convulsions, No disequilibrium, No dizziness, No localized weakness, No frequent falls, No headache(s), No lack of coordination, No loss of vision, No memory loss, No numbness, No other visual disturbances, No radicular pain, No restless legs, No sensory deficit, No syncope, No tingling, No tremor(s), No weakness and No other Exam Const General: cooperative, healthy appearing, comfortable and no acute distress [facility] Head: normal to inspection Eyes General: appearance normal, both eyes and all related structures Neck Neck: normal visual inspection Neck mass: No Chest Chest palpation & inspection: normal inspection of the chest Resp Effort & Inspection: normal respiratory effort Auscultation: clear to auscultation bilaterally Cardio Rate: regular rate Rhythm: regular rhythm GI Other: Left groin- incision c/d/i. No erythema or infection noted. No drainage noted. Moderate amount of light green ecchymosis. Minimal amount of swelling noted. No recurrent hernia palpated. All steri-strips removed and dermabond was applied Musc Cervical Spine: normal cervical lordosis Skin General: no rashes or lesions noted Neuro General: no focal motor deficits and CN's II-XI intact bilaterally Extrem General: normal to inspection Psych Appearance: grossly normal Affect: normal affect Assessment and Plan Assessment and Plan (1) Bilateral inguinal hernia: Status: Acute Qualifiers: Obstruction and gangrene presence: without obstruction or gangrene Recurrence: not specified as recurrent Qualified Code(s): K40.20 - Bilateral inguinal hernia, without obstruction or gangrene, not specified as recurrent Plan: Dr. Engel will plan to perform a staged open right inguinal hernia repair with mesh. Procedure details, risks and benefits have been explained. Patient has had the opportunity to ask and have questions answered. Patient verbally understands and agrees to proceed with the proposed procedure. I am recommending the patient apply ice to the left groin site 20 minutes on and 20 minutes rest. Patient will continue to reserve her weight restrictions to 10 pounds until following the procedure on 03/07. I have examined the patient and the H&P has been reviewed. There are no clinical changes since date of exam. Yadiel Engel M.D., F.A.C.S.
--- NOTE | 2024-03-07 07:13 | DCINST_ITS ---
Discharge Instructions Procedure General Surgery Diet Discharge Diet: Light diet - advance as tolerated (if you have questions about your diet instructions, please talk to you doctor.) Activity Discharge Activity: May Not Drive (for 3-5 days or while taking narcotic pain medicine.) May shower in (days): 1 Lifting Restrictions: 10 pounds Dressing / Incision Call your doctor if your incision/area has: Continuous Slow Oozing, Sudden Increased Bleeding, Increased Pain/ Swelling, Increased Redness and Foul Smelling Discharge Call your doctor if you observe: Fever of 101 or Higher Suture Line Care: Avoid Pulling/Pushing and Avoid Pinching/Bending Additional Dressing/Incision Instructions:: Change or remove dressing in 4 days. Leave steri-strips in place for 1 week. Follow Up Care Please Follow Up With: Yadiel Engel MD When: Call [phone] to make an appointment to be seen in about 10 days. Test Results: Test results from this visit will be discussed in further detail at your follow- up appointment, if applicable. Discharge Plan Admission Attending Provider: Yadiel Engel Primary Care Provider: Zuly Merritt Instructions Print Language: Prydeinig Discharge Orders/Prescriptions Prescriptions: No Action Levothyroxine Sodium 25 mcg PO DAILY dorzolamide-timolol 22.3-6.8 mg/mL drops 1 drp ophthalmic (eye) BID amlodipine 5 mg tablet 5 mg PO DAILY Vyzulta 0.024 % drops 1 drp EACH EYE QHS Centrum Adult 50 Plus 80 mcg tablet,chewable 1 tab PO DAILY Healthy Eyes SuperVision 4,296 mcg-226 mg-90 mg capsule 1 cap PO DAILY Referrals / Follow Up: Zuly Merritt MD [Primary Care Provider] - Disposition Disposition (needs filled in before D/C Order can be placed): Home, Self Care
[2024-03-07] MEDS: Clindamycin 900 MG/50 ML BAG 75 MG IV (07:21)
[2024-03-07] MEDS: Bupivacaine Mpf 0.5% 30 ML VIAL (07:34)
--- NOTE | 2024-03-07 08:02 | PCM.PRE.AN2 ---
ASA Classification* ASA Classification ASA Classification: 2 Assessment & Plan Anesthesia* Anesthesia Assessment Anesthesia Assessment: Discussed sedation and/or anesthesia options, risks, benefits, and alternatives with patient/parents/legal guardian/POA. Questions invited. The patient/parents/legal guardian/POA seems to understand and agrees to proceed with anesthesia plan. Reviewed the physical assessment, medical history, allergy history and patient home medications list prior to surgery/procedure/anesthetic and documented any changes. Performed airway and anesthesia risk assessments. Anesthesia Type Anesthesia Type: General Anesthesia Focused Assessment* Temperature: 97.9 F Pulse Rate: 66 Blood Pressure: 157/86 Respiratory Rate: 18 Pulse Ox: 96 Airway Assessment Mouth opens: >3 cm Mallampati Score: II Focused Labs Anesthesia Preop lab: CBC WBC 9.2 K/mm3 (4.4-11.0) 12/14/23 07:00 RBC 3.81 M/mm3 (4.2-5.4) L 12/14/23 07:00 Hgb 11.9 g/dL (12.0-15.0) L 12/14/23 07:00 Hct 36.0 % (37-47) L 12/14/23 07:00 Plt Count 227 K/mm3 (150-450) 12/14/23 07:00 CHEMISTRY Potassium 3.2 mmol/L (3.5-5.1) L 12/16/23 06:26 Sodium 138 mmol/L (136-145) 12/16/23 06:26 Magnesium 2.1 mg/dL (1.6-2.6) 12/15/23 06:45 Phosphorus 1.3 mg/dL (2.5-4.9) L 12/16/23 06:26 BUN 2 mg/dL (7-18) L 12/16/23 06:26 Creatinine 0.34 mg/dL (0.55-1.02) L 12/16/23 06:26 Glucose 133 mg/dL (74-106) H 12/16/23 06:26 COAG Pre-Assessment Diagnosis/Proposed Procedure Planned Operative Procedure(s): (R) Open right Hernia, Inguinal w/ Mesh Anesthesia History 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 When Was Last Pacemaker Check QUESTION #4 FULL TEXT: You/Your Family Experience fever (hyperthermia) with Anesthesia Last Oral Intake Last Oral intake: Last Oral Intake NPO since 03:00 03/07/24 06:30 Meds taken in AM with sips of Yes 03/07/24 06:30 water? Meds patient instructed to take am of surgery PONV PONV - maintenance welder: PONV - maintenance welder Female Yes 02/28/24 13:54 HX of Motion Sickness No 02/28/24 13:54 HX of N/V After Surgery No 02/28/24 13:54 Non-Smoker Yes 02/28/24 13:54 Duration of Surgery greater Yes 02/28/24 13:54 than 60 minutes Number of Risk Factors 3 02/28/24 13:54 PONV Score Moderate Risk 02/28/24 13:54 Height & Weight Height & Weight: Anesthesia: Height & Weight Height 5 ft 2 in 03/07/24 06:30 Weight: 55.338 kg 03/07/24 06:30 Body Mass Index (BMI) 22.3 03/07/24 06:30 Respiratory Assessment Respiratory Assessment - maintenance welder: Respiratory Tract Infection Hx - maintenance welder Hx Respiratory Tract Infection No 02/28/24 13:54 STOP Sleep Apnea STOP Sleep Apnea - maintenance welder: STOP Sleep Apnea - maintenance welder Hx Hypertension Yes 02/28/24 13:54 Hx Sleep Apnea No 02/28/24 13:54 CPAP No 02/17/24 08:56 BIPAP Do you snore loudly (louder No 02/28/24 13:54 than talking or can be heard Do you often feel tired/ No 02/28/24 13:54 fatigued/ sleepy during daytime? Has anyone observed you stop No 02/28/24 13:54 breathing during sleep? STOP Results Negative 02/28/24 13:54 QUESTION #5 FULL TEXT : Do you snore loudly (louder than talking or can be heard through closed doors)? Tobacco Use History Tobacco Use History - maintenance welder: Tobacco Use History - maintenance welder Tobacco Use Smoking Status Never smoker 02/28/24 13:54 Hx Tobacco Use No 02/28/24 13:54 Years Smoking Packs Smoked per Day Smoking Cessation Date was within the last 15 years Hx Smoking Cessation Date Hx Smoking Cessation Counseling Hematologic Medial History Hematologic Hx - maintenance welder: Hematologic Medical Hx - spinner open end Hx of Blood Transfusion No 02/28/24 13:54 Hx of Transfusion in last 3 No 02/28/24 13:54 Months Date of Last Transfusion (if within last 3 months) Ever experience any problems No 02/28/24 13:54 with transfusion(s)? Specify any problems Hx of Preganancy in last 3 No 02/28/24 13:54 Months Nurse Filling Out Transfusion [facility] 02/28/24 13:54 & Questions: Date: 02/28/24 02/28/24 13:54 Time: 13:57 02/28/24 13:54 Patient unable to answer at this time (ie. confused, unrespo /Reproduction History /Reproductive History - maintenance welder: /Reproductive Hx- maintenance welder Hx Now No 02/28/24 13:54 Gestational Age (in weeks): EDC: Hx Hx Para Hx Section SAB No 02/07/21 15:41 Active Medications Active Medications: Current Medications Generic Name Dose Route Start Last Admin Trade Name Freq PRN Reason Stop Dose Admin Acetaminophen 650 mg 03/07/24 07:14 Acetaminophen 325 Mg Tablet PO Q6H PRN PRN Pain Score 1-10 Hydrocodone Bitart/Acetaminophen 1 - 2 tablet 03/07/24 07:14 Hydrocodone Bitartrate/Apap 5/325 Tablet PO Q4H PRN PRN Pain Score 1-10 Clindamycin Phosphate 900 mg in 50 mls @ 75 mls/hr 03/07/24 07:30 03/07/24 07:34 Cleocin IV 03/07/24 08:09 Infused PREOP ONE Infusion Lactated Ringer's 1,000 mls @ 15 mls/hr 03/07/24 06:15 03/07/24 06:46 IV 15 mls/hr .Q48H FRANCISCA Administration PFSH Medical History Dietary restriction Former smoker Hypertension Urinary retention with incomplete bladder emptying C. difficile colitis Wears hearing aid Wears glasses Cancer Alcohol use Thyroid disease Non-smoker Personal history of colon cancer Abdominal pain History of diverticulitis Colon cancer Hypothyroid Home Medications ?Medication ?Instructions ?Recorded ?Last Taken ?Type Levothyroxine Sodium 25 mcg PO DAILY thyroid 06/17/18 03/07/24 02:00 History amlodipine 5 mg tablet 5 mg PO DAILY bp 12/12/23 03/07/24 04:00 History dorzolamide 22.3 mg-timolol 6.8 1 drp ophthalmic (eye) BID glaucoma 12/12/23 03/07/24 05:00 History mg/mL eye drops latanoprostene bunod 0.024 % eye 1 drp EACH EYE QHS glaucoma 12/12/23 03/06/24 History drops (Vyzulta) multivitamin with minerals-folic 1 tab PO DAILY supplement 12/12/23 03/06/24 History acid 80 mcg chewable tablet (Centrum Adult 50 Plus) vitamins A,C,L-hdin-oivqbf 4,296 1 cap PO DAILY eye health 12/12/23 03/06/24 History mcg-226 mg-90 mg capsule (Healthy Eyes SuperVision) Allergy/AdvReac Type Severity Reaction Status Date / Time bee venom protein (honey bee) Allergy Swelling Verified 03/07/24 06:20 bacitracin (From Neosporin AdvReac Rash Verified 03/07/24 06:20 ([id number])) neomycin (From Neosporin AdvReac Rash Verified 03/07/24 06:20 ([id number])) Penicillins AdvReac Hives Verified 03/07/24 06:20 polymyxin B (From Neosporin AdvReac Rash Verified 03/07/24 06:20 ([id number])) Family History Aunt Breast cancer Colon cancer Brother Diabetes Father CVA (cerebral vascular accident) Surgical History Hx of inguinal hernia surgery History of eyelid surgery History of eye surgery S/P colonoscopy (~2017) S/P colectomy (~1995) Social History Smoking Status: Never smoker alcohol intake: current alcohol intake frequency: 0-2 drinks per day Review of Systems (Anesthesia) ROS Narrative System reviewed and no additional complaints, except as documented.
--- NOTE | 2024-03-07 08:15 | PCM.OPRPT ---
Report of Operation Date of Procedure: 03/07/24 Pre-Operative Diagnosis: Right femoral hernia Post-Operative Diagnosis: Same Surgery/Procedure Performed:: Right femoral herniorrhaphy Description of Surgical Findings:: Timeout informed consent was obtained. 88-year-old female was taken to the op room placed on the table underwent general anesthesia clindamycin 900 g were given intravenously the right groin was sterilely prepped and draped 0.5% Marcaine was used as local anesthetic a total of 20 cc was used. Transverse incision was made in the right groin sharp dissection carried down through the subcutaneous tissue external bleak was identified and appeared to be intact no evidence of inguinal hernia as radiology had suggested. Further dissection however did reveal a right femoral hernia. I dissected free was able to invert it and feel the defect. I felt that this correlated well with the CT images. I dissected tissue free. Identified the right femoral vein. I then approximated Simeon's ligament to the inguinal ligament. Several interrupted simple sutures of 2-0 Ethibond were placed. This closed the defect area right to the femoral vein but not impinging upon the femoral vein. Palpation detected a solid repair. I further inspected the inguinal area did not detect any significant weakness or defect there. Approximated the deep tissue with multiple interrupted 3-0 Vicryl sutures. Skin edges approximated 1 subicular 4-0 Monocryl. Steri-Strips Telfa OpSite dressing was applied. Sponge and instrument and needle counts were reported to the surgeon to be correct. Specimens none. Drains none. Blood loss minimal. The patient was taken to recovery room in satisfied condition without apparent complication Yadiel Engel M.D., F.A.C.S. Surgeon: Yadiel Engel Type of Anesthesia: General and Local Anesthesiologist: Bob Maurer
--- NOTE | 2024-03-07 08:24 | PCM.POST.ANE ---
Anesthesia: Postop Eval I Current Vital Signs Temperature: 98.4 F Pulse Rate: 68 Blood Pressure: 131/90 Respiratory Rate: 16 Pulse Ox: 95 Oxygen Delivery Method: Room Air Assessment Airway patent: Yes Spontaneous unlabored respirations: Yes Mental status: Awake and Calm nausea: No Vomiting: No Anesthesia Complication: No Fluid Hydration Crystalloid volume administer (ml): 500 Total IV fluid infused: 500 Progress Note Post-operative progress note: DENIES PAIN Anesthesia document: Postop Eval 1 completed: Yes
--- NOTE | 2024-03-07 13:26 | POSTOPAN2_ITS ---
Anesthesia Postop Eval I Sum Postop Eval Completion status Anesthesia document: Postop Eval 1 completed: Yes Anesthesia Postop Eval I Summary Anesthesia Postop Eval I Summary: Anesthesia Postop Eval I: Assessment Summary Airway patent Yes 03/07/24 08:25 JAVA SUPPORT ENGINEER.SCHR Spontaneous unlabored Yes 03/07/24 08:25 JAVA SUPPORT ENGINEER.SCHR respirations Mental status Awake,Calm 03/07/24 08:25 JAVA SUPPORT ENGINEER.SCHR nausea No 03/07/24 08:25 JAVA SUPPORT ENGINEER.SCHR Vomiting No 03/07/24 08:25 [facility] Anesthesia Postop Eval I: Fluid Summary Crystalloid volume administer 500 03/07/24 08:25 JAVA SUPPORT ENGINEER.SCHR (ml) Colloids volume administered ( ml) Blood Product volume administered (ml) Total IV fluid infused 500 03/07/24 08:25 [facility] SUPPORT [facility]INEER.[facility] Anesthesia Postop Eval I: Summary Notes Anesthesia Complication No 03/07/24 08:25 JAVA SUPPORT ENGINEER.[facility] Anesthesia Complication Comment: Post-operative progress note DENIES PAIN 03/07/24 08:25 JAVA SUPPORT ENGINEER.[facility] Anesthesia: Postop Eval II Evaluation Mental status: Awake Pain Level: 0 nausea: No Vomiting: No Complications Anesthesia Complication: No
--- NOTE | 2024-03-07 13:26 | PCM.POSTANE2 ---
Anesthesia Postop Eval I Sum Postop Eval Completion status Anesthesia document: Postop Eval 1 completed: Yes Anesthesia Postop Eval I Summary Anesthesia Postop Eval I Summary: Anesthesia Postop Eval I: Assessment Summary Airway patent Yes 03/07/24 08:25 TERRA COTTA ROOFER HELPER.SCHR Spontaneous unlabored Yes 03/07/24 08:25 TERRA COTTA ROOFER HELPER.SCHR respirations Mental status Awake,Calm 03/07/24 08:25 TERRA COTTA ROOFER HELPER.SCHR nausea No 03/07/24 08:25 TERRA COTTA ROOFER HELPER.SCHR Vomiting No 03/07/24 08:25 [facility] COT[facility] R[facility]FER [facility] Anesthesia Postop Eval I: Fluid Summary Crystalloid volume administer 500 03/07/24 08:25 TERRA COTTA ROOFER HELPER.SCHR (ml) Colloids volume administered ( ml) Blood Product volume administered (ml) Total IV fluid infused 500 03/07/24 08:25 TERRA COTTA ROOFER HELPER.[facility] Anesthesia Postop Eval I: Summary Notes Anesthesia Complication No 03/07/24 08:25 TERRA COTTA ROOFER HELPER.[facility] Anesthesia Complication Comment: Post-operative progress note DENIES PAIN 03/07/24 08:25 TERRA COTTA ROOFER HELPER.[facility] Anesthesia: Postop Eval II Evaluation Mental status: Awake Pain Level: 0 nausea: No Vomiting: No Complications Anesthesia Complication: No
== END 2024-03-07 10:27 | disposition home or self-care (01) ==
LOC: SDC 05:58 → AC 05:59
PROVIDERS: Referring Provider Surgery; Visit Provider Surgery
PROC: (CPT 49550; principal; 2024-03-07 07:15)
DX: K41.90 Unilateral femoral hernia, without obstruction or gangrene, not specified as recurrent (principal); I10 Essential (primary) hypertension; Z98.890 Other specified postprocedural states; Z87.19 Personal history of other diseases of the digestive system; Z79.899 Other long term (current) drug therapy; E03.9 Hypothyroidism, unspecified; Z85.038 Personal history of other malignant neoplasm of large intestine
CPT/HCPCS: 49550; 00830; J7120; J2405